=== PATIENT | female | born 1975 | race Caucasian/White ===

== ENCOUNTER 2021-10-28 13:09 | Observation (INO) | payer BC ==
[2021-10-28] MEDS ORDERED: SODIUM CHLORIDE 0.9% 500 ML 500 ML IV STA (13:29)
[2021-10-28] MEDS ORDERED: ASPIRIN 81 MG PO STA (13:29)
[2021-10-28] MEDS ORDERED: NITROGLYCERIN OINT 1 INCH/GM PACKET TOPICAL STA (13:30)
--- NOTE | 2021-10-28 13:38 | ED ---
General Adult HPI - General Chief complaint: Arrhythmia/Palpitations Stated complaint: racing heart Time Seen by Provider: 10/28/21 13:15 Source: patient, RN notes reviewed, old records reviewed Mode of arrival: ambulatory Limitations: no limitations - History of Present Illness Initial comments: This is a 46-year-old female who presents emergency Department with a past medical history significant for diabetes hypertension and a family history of heart disease. Patient states she's had chest pain over the last week anytime she seems to exert herself a comes on she states the pain radiates to her neck and her left arm. She becomes very short of breath. Patient states she's had this multiple times in the past and been seen at the hospital and had a stress test and was all normal but this week is been worsening continues to happen so she wanted to come to a different hospital to be evaluated. Patient denies any recent fever chills or cough per patient denies abdominal pain patient denies nausea vomiting diarrhea. Patient denies lightheadedness or dizziness. Patient also states she feels as though her heart was racing when this occurs. - Related Data Allergies Allergy/AdvReac Type Severity Reaction Status Date / Time No Known Allergies Allergy Verified 10/28/21 13:18 Review of Systems ROS Statement: Those systems with pertinent positive or pertinent negative responses have been documented in the HPI. ROS Other: All systems not noted in ROS Statement are negative. Past Medical History Past Medical History: Diabetes Mellitus, Hypertension Additional Past Medical History / Comment(s): RA History of Any Multi-Drug Resistant Organisms: None Reported Past Surgical History: No Surgical Hx Reported Past Psychological History: No Psychological Hx Reported Smoking Status: Never smoker Past Alcohol Use History: None Reported Past Drug Use History: None Reported General Exam - General Exam Comments Initial Comments: GENERAL: Patient is well-developed and well-nourished. Patient is nontoxic and well- hydrated and is in mild distress. ENT: Neck is soft and supple. No significant lymphadenopathy is noted. Oropharynx is clear. Moist mucous membranes. Neck has full range of motion without eliciting any pain. EYES: The sclera were anicteric and conjunctiva were pink and moist. Extraocular movements were intact and pupils were equal round and reactive to light. Eyelids were unremarkable. PULMONARY: Unlabored respirations. Good breath sounds bilaterally. No audible rales rhonchi or wheezing was noted. CARDIOVASCULAR: There is a regular rate and rhythm without any murmurs gallops or rubs. ABDOMEN: Soft and nontender with normal bowel sounds. SKIN: Skin is clear with no lesions or rashes and otherwise unremarkable. NEUROLOGIC: Patient is alert and oriented x3. Cranial nerves II through XII are grossly int act. Motor and sensory are also intact. Normal speech, volume and content. Symmetrical smile. MUSCULOSKELETAL: Normal extremities with adequate strength and full range of motion. LYMPHATICS: No significant lymphadenopathy is noted PSYCHIATRIC: Normal psychiatric evaluation. Limitations: no limitations Course Vital Signs 10/28/21 13:13 Temperature 98.4 F Pulse Rate 110 H Respiratory 20 Rate Blood Pressure 143/95 O2 Sat by Pulse 97 Oximetry Medical Decision Making - Medical Decision Making EKG shows sinus tachycardia at 102 bpm DE interval 152 QRS is 95 QT interval 390 QTC is 368. Patient's EKG shows no ST segment elevation or depression. Chest x-ray shows no acute abnormality. I spoke with some physician he agreed to admit the patient admitted the patient wrote admitting orders. - Lab Data Result diagrams: 10/28/21 13:49 10/28/21 13:49 Lab Results 10/28/21 10/28/21 10/28/21 Range/Units 13:49 13:49 13:49 WBC 7.2 (3.8-10.6) k/uL RBC 5.68 H (3.80-5.40) m/uL Hgb 17.1 H (11.4-16.0) gm/dL Hct 50.2 H (34.0-46.0) % MCV 88.4 (80.0-100.0) fL MCH 30.2 (25.0-35.0) pg MCHC 34.1 (31.0-37.0) g/dL RDW 12.1 (11.5-15.5) % Plt Count 303 (150-450) k/uL MPV 7.8 Neutrophils % 71 % Lymphocytes % 22 % Monocytes % 4 % Eosinophils % 1 % Basophils % 1 % Neutrophils # 5.1 (1.3-7.7) k/uL Lymphocytes # 1.6 (1.0-4.8) k/uL Monocytes # 0.3 (0-1.0) k/uL Eosinophils # 0.1 (0-0.7) k/uL Basophils # 0.1 (0-0.2) k/uL PT 10.0 (9.0-12.0) sec INR 0.9 (<1.2) APTT 23.9 (22.0-30.0) sec D-Dimer 0.26 (<0.60) mg/L FEU Sodium 139 (137-145) mmol/L Potassium 4.2 (3.5-5.1) mmol/L Chloride 103 (98-107) mmol/L Carbon Dioxide 23 (22-30) mmol/L Anion Gap 13 mmol/L BUN 18 H (7-17) mg/dL Creatinine 0.71 (0.52-1.04) mg/dL Est GFR (CKD-EPI)AfAm >90 (>60 ml/min/1.73 sqM) Est GFR (CKD-EPI)NonAf >90 (>60 ml/min/1.73 sqM) Glucose 235 H (74-99) mg/dL Calcium 10.0 (8.4-10.2) mg/dL Magnesium 1.8 (1.6-2.3) mg/dL Total Bilirubin 0.5 (0.2-1.3) mg/dL AST 30 (14-36) U/L ALT 46 H (4-34) U/L Alkaline Phosphatase 121 (38-126) U/L Troponin I (0.000-0.034) ng/mL Total Protein 8.1 (6.3-8.2) g/dL Albumin 4.8 (3.5-5.0) g/dL TSH 0.683 (0.465-4.680) mIU/L 10/28/21 Range/Units 13:49 WBC (3.8-10.6) k/uL RBC (3.80-5.40) m/uL Hgb (11.4-16.0) gm/dL Hct (34.0-46.0) % MCV (80.0-100.0) fL MCH (25.0-35.0) pg MCHC (31.0-37.0) g/dL RDW (11.5-15.5) % Plt Count (150-450) k/uL MPV Neutrophils % % Lymphocytes % % Monocytes % % Eosinophils % % Basophils % % Neutrophils # (1.3-7.7) k/uL Lymphocytes # (1.0-4.8) k/uL Monocytes # (0-1.0) k/uL Eosinophils # (0-0.7) k/uL Basophils # (0-0.2) k/uL PT (9.0-12.0) sec INR (<1.2) APTT (22.0-30.0) sec D-Dimer (<0.60) mg/L FEU Sodium (137-145) mmol/L Potassium (3.5-5.1) mmol/L Chloride (98-107) mmol/L Carbon Dioxide (22-30) mmol/L Anion Gap mmol/L BUN (7-17) mg/dL Creatinine (0.52-1.04) mg/dL Est GFR (CKD-EPI)AfAm (>60 ml/min/1.73 sqM) Est GFR (CKD-EPI)NonAf (>60 ml/min/1.73 sqM) Glucose (74-99) mg/dL Calcium (8.4-10.2) mg/dL Magnesium (1.6-2.3) mg/dL Total Bilirubin (0.2-1.3) mg/dL AST (14-36) U/L ALT (4-34) U/L Alkaline Phosphatase (38-126) U/L Troponin I <0.012 (0.000-0.034) ng/mL Total Protein (6.3-8.2) g/dL Albumin (3.5-5.0) g/dL TSH (0.465-4.680) mIU/L Disposition Clinical Impression: Chest pain, Palpitations Disposition: ADMITTED IP TO THIS [facility] Referrals: Nonstaff,Physician [Primary Care Provider] - 1-2 days Time of Disposition: 15:04
[2021-10-28 13:57] LABS: Basophils # (A) 0.1 k/uL (0-0.2); Basophils % (A) 1 %; Eosinophils # (A) 0.1 k/uL (0-0.7); Eosinophils % (A) 1 %; HCT 50.2 % (34.0-46.0); HGB 17.1 gm/dL (11.4-16.0); Lymphocytes # (A) 1.6 k/uL (1.0-4.8); Lymphocytes % (A) 22 %; MCH 30.2 pg (25.0-35.0); MCHC 34.1 g/dL (31.0-37.0); MCV 88.4 fL (80.0-100.0); Mean Platelet Volume 7.8; Monocytes # (A) 0.3 k/uL (0-1.0); Monocytes % (A) 4 %; Neutrophils # (A) 5.1 k/uL (1.3-7.7); Neutrophils % (A) 71 %; Platelet Count 303 k/uL (150-450); RBC 5.68 m/uL (3.80-5.40); RDW 12.1 % (11.5-15.5); WBC 7.2 k/uL (3.8-10.6)
[2021-10-28 14:07] LABS: Glucose 235 mg/dL (74-99)
--- NOTE | 2021-10-28 14:12 | XR ---
EXAMINATION TYPE: XR chest 2V DATE OF EXAM: 10/28/2021 COMPARISON: NONE HISTORY: Chest pain TECHNIQUE: FINDINGS: Heart and mediastinum are normal. Lungs are clear. Diaphragm is normal. Bony thorax is inta ct. IMPRESSION: Normal chest.
[2021-10-28 14:19] LABS: INR 0.9 (<1.2); Partial Thromboplastin Time 23.9 sec (22.0-30.0)
[2021-10-28 14:48] LABS: ALT 46 U/L (4-34); AST 30 U/L (14-36); African American GFR (CKD) >90 (>60 ml/min/1.73 sqM); Albumin 4.8 g/dL (3.5-5.0); Alkaline Phosphatase 121 U/L (38-126); Anion Gap 13 mmol/L; Blood Urea Nitrogen 18 mg/dL (7-17); Carbon Dioxide 23 mmol/L (22-30); Chloride 103 mmol/L (98-107); Magnesium 1.8 mg/dL (1.6-2.3); Non-African American GFR(CKD) >90 (>60 ml/min/1.73 sqM); Potassium 4.2 mmol/L (3.5-5.1); Sodium 139 mmol/L (137-145); Total Bilirubin 0.5 mg/dL (0.2-1.3); Total Protein 8.1 g/dL (6.3-8.2)
[2021-10-28] MEDS ORDERED: NITROGLYCERIN SL TABS 0.4 MG TAB SUBLINGUAL PRN (15:05)
[2021-10-28] MEDS ORDERED: LORazepam 1 MG TAB PO STA (15:20)
--- NOTE | 2021-10-28 16:24 | P.HPIM ---
History of Present Illness H&P Date: 10/28/21 Chief Complaint: Racing heart 46-year-old female with history of hypertension, type 2 diabetes, obesity who presented to the hospital with complaints of racing heart and chest pressure. The patient was worked up extensively at different hospitals for chest pressure and pain also for tachycardia. At one time she was told that she has carditis but no specific treatment was given to her. She was also told to follow-up with cardiology as an outpatient but she has not had the chest to do that. Today she presents to the ER with complaints of racing heart and chest pressure that radiates to her jaw. She had denied any dizziness or fainting syncopes. She stated that her episodes last for several days at a time and it comes and goes. She had denied any nausea or vomiting today. In the ED, initial workup was grossly unremarkable. Her labs were unremarkable. Her EKG showed sinus tachycardia with possible arterial enlargement. Her TSH was normal. Infection workup was normal. Her blood pressure was slightly elevated. She is afebrile. She'll be admitted to the hospital on the observation unit for cardiology consultation. And for telemetry Past Medical History Past Medical History: Diabetes Mellitus, Hypertension Additional Past Medical History / Comment(s): RA History of Any Multi-Drug Resistant Organisms: None Reported Past Surgical History: No Surgical Hx Reported Past Psychological History: No Psychological Hx Reported Smoking Status: Never smoker Past Alcohol Use History: None Reported Past Drug Use History: None Reported Medications and Allergies Home Medications Medication Instructions Recorded Confirmed Type Aspirin/Acetaminophen/Caffeine 2 tab PO Q12H PRN 10/28/21 10/28/21 History [Excedrin Extra Strength Caplet] DULoxetine HCL [Cymbalta] 20 mg PO DAILY 10/28/21 10/28/21 History Dulaglutide [Trulicity] 1.5 mg SQ HARP 10/28/21 10/28/21 History Losartan [Cozaar] 50 mg PO BID 10/28/21 10/28/21 History Metformin Hcl 750mg 750 mg PO DAILY 10/28/21 10/28/21 History hydroCHLOROthiazide [Hydrodiuril] 50 mg PO DAILY 10/28/21 10/28/21 History Allergies Allergy/AdvReac Type Severity Reaction Status Date / Time No Known Allergies Allergy Verified 10/28/21 15:53 Physical Exam Vitals: Vital Signs Temp Pulse Resp BP Pulse Ox 10/28/21 15:31 81 16 134/94 97 10/28/21 13:13 98.4 F 110 H 20 143/95 97 Intake and Output 10/28/21 10/28/21 10/28/21 06:59 14:59 22:59 Other: Weight 90.265 kg General: Alert and oriented 4 not in distress Neck: Supple no JVD no lymphadenopathy Heart: Tachycardic regular rhythm. Lungs: Bilaterally clear to auscultation. No crackles or wheezing Abdomen: Soft, nondistended nontender positive bowel sounds in 4 quadrants. Skin: Warm and dry. Results CBC & Chem 7: 10/28/21 13:49 10/28/21 13:49 Labs: Abnormal Lab Results - Last 24 Hours (Table) 10/28/21 10/28/21 Range/Units 13:49 13:49 RBC 5.68 H (3.80-5.40) m/uL Hgb 17.1 H (11.4-16.0) gm/dL Hct 50.2 H (34.0-46.0) % BUN 18 H (7-17) mg/dL Glucose 235 H (74-99) mg/dL ALT 46 H (4-34) U/L Assessment and Plan Plan: 46-year-old female with hypertension and diabetes presented to the hospital with chest discomfort and tachycardia. Palpitations, feeling of racing heart, chest pressure. Patient has episodes of tachycardia. EKG revealed sinus tachycardia. unknown where was the last echocardiogram. Cardiology consultationappreciate recommendations Continue awake overnight monitor TSH is normal. We will order echocardiogram Awaiting further cardiology recommendations. The patient is not on rate control agents. She may need an electrophysiology consult eventually. The cause of her arrhythmia is still under workup. Could be also related to anxiety. Type 2 diabetes Hold home blood sugar medications. Started on sliding scale Hypertension Continue losartan Continue hydrochlorothiazide Depression, side continue Cymbalta DVT prophylaxis: Compression device Disposition: Pending cardiology recommendations
[2021-10-28] MEDS ORDERED: NITROGLYCERIN OINT 1 INCH/GM PACKET TOPICAL SCH (18:00)
[2021-10-28 20:07] LABS: Glucose,Whole Blood 162 mg/dL (70-110)
[2021-10-28 20:31] LABS: Amphetamine Screen,Urine Not Detected (NotDetected); Barbiturate Screen,Urine Not Detected (NotDetected); Benzodiazepines Screen,Urine Detected (NotDetected); Cocaine Screen,Urine Not Detected (NotDetected); Methadone Screen, Urine Not Detected (NotDetected); Opiate Screen,Urine Not Detected (NotDetected); Oxycodone Screen, Urine Not Detected (NotDetected); Phencyclidine Screen,Urine Not Detected (NotDetected); Tricyclic Antidepressant,Urine Not Detected (NotDetected); Urn Cannabinoid Scrn Not Detected (NotDetected)
[2021-10-28] MEDS: LOSARTAN 50 MG TAB PO SCH (20:34)
[2021-10-28] MEDS: INSULIN ASPART (NovoLOG) 100 UNIT/ML VIAL SQ SCH (20:34)
[2021-10-29 07:36] LABS: Glucose,Whole Blood 177 mg/dL (70-110)
[2021-10-29] MEDS: INSULIN ASPART (NovoLOG) 100 UNIT/ML VIAL SQ SCH ×4 (08:11→21:04)
[2021-10-29] MEDS: DULoxetine HCL 20 MG CAPSULE.DR PO SCH (08:14)
[2021-10-29] MEDS ORDERED: ASPIRIN 325 MG TAB PO SCH (09:00)
--- NOTE | 2021-10-29 09:00 | P.CRDCN ---
History of Present Illness Consult date: 10/29/21 Chief complaint: Chest pain History of present illness: The patient is a pleasant 46-year-old female patient with a past medical history significant for diabetes and hypertension and overweight was transferred from another facility for further evaluation of chest discomfort. For the last several weeks she has been experiencing intermittent episodes of chest discomfort/heart racing. She had heart time differentiating between both. She stated that the symptoms are mostly exertional but sometimes are resting. No increase in the intensity or frequency over the last few weeks. She presented yesterday into different facility where she underwent a workup and she was transferred here for further evaluation. She underwent an EKG which showed sinus rhythm without any significant ST or T-wave abnormalities and also she underwent 3 sets of cardiac enzymes came in to be unremarkable. The chest x-ray also did not show any acute abnormalities. She remains asymptomatic in terms of chest discomfort at this point. At this point I advised the patient to undergo a stress test and echocardiogram to be done while she is in the hospital. Also if she developed any more episode of chest discomfort before tomorrow I would advise proceeding with coronary angiogram for definitive diagnosis. The plan was discussed with the patient in details with full understanding and agreement. Past Medical History Past Medical History: Diabetes Mellitus, Hypertension Additional Past Medical History / Comment(s): RA History of Any Multi-Drug Resistant Organisms: None Reported Past Surgical History: No Surgical Hx Reported Past Psychological History: No Psychological Hx Reported Smoking Status: Never smoker Past Alcohol Use History: None Reported Past Drug Use History: None Reported Medications and Allergies Home Medications Medication Instructions Recorded Confirmed Type Aspirin/Acetaminophen/Caffeine 2 tab PO Q12H PRN 10/28/21 10/28/21 History [Excedrin Extra Strength Caplet] DULoxetine HCL [Cymbalta] 20 mg PO DAILY 10/28/21 10/28/21 History Dulaglutide [Trulicity] 1.5 mg SQ HARP 10/28/21 10/28/21 History Losartan [Cozaar] 50 mg PO BID 10/28/21 10/28/21 History Metformin Hcl 750mg 750 mg PO DAILY 10/28/21 10/28/21 History hydroCHLOROthiazide [Hydrodiuril] 50 mg PO DAILY 10/28/21 10/28/21 History Allergies Allergy/AdvReac Type Severity Reaction Status Date / Time No Known Allergies Allergy Verified 10/28/21 15:53 Physical Exam Vitals: Vital Signs Temp Pulse Pulse Resp BP BP Pulse Ox 10/29/21 08:03 95 10/29/21 07:00 98.4 F 87 18 106/68 95 10/29/21 03:00 98.4 F 80 17 99/59 97 10/28/21 19:30 98.5 F 117 H 17 111/76 10/28/21 18:35 98 16 138/95 99 10/28/21 18:12 100 16 118/90 95 10/28/21 15:31 81 16 134/94 97 10/28/21 13:13 98.4 F 110 H 20 143/95 97 Intake and Output 10/28/21 10/29/21 10/29/21 22:59 06:59 14:59 Other: Voiding Method Toilet Toilet # Voids 0 2 Weight 90.265 kg - Constitutional General appearance: no acute distress - Respiratory Respiratory: bilateral: CTA - Cardiovascular Rhythm: regular Heart sounds: normal: S1, S2 Abnormal Heart Sounds: systolic murmur Results 10/28/21 13:49 10/28/21 13:49 Cardiac Enzymes 10/28/21 10/28/21 10/28/21 Range/Units 13:49 13:49 15:30 AST 30 (14-36) U/L Troponin I <0.012 <0.012 (0.000-0.034) ng/mL 10/28/21 Range/Units 21:51 AST (14-36) U/L Troponin I <0.012 (0.000-0.034) ng/mL Coagulation 10/28/21 Range/Units 13:49 PT 10.0 (9.0-12.0) sec APTT 23.9 (22.0-30.0) sec CBC 10/28/21 Range/Units 13:49 WBC 7.2 (3.8-10.6) k/uL RBC 5.68 H (3.80-5.40) m/uL Hgb 17.1 H (11.4-16.0) gm/dL Hct 50.2 H (34.0-46.0) % Plt Count 303 (150-450) k/uL Comprehensive Metabolic Panel 10/28/21 Range/Units 13:49 Sodium 139 (137-145) mmol/L Potassium 4.2 (3.5-5.1) mmol/L Chloride 103 (98-107) mmol/L Carbon Dioxide 23 (22-30) mmol/L BUN 18 H (7-17) mg/dL Creatinine 0.71 (0.52-1.04) mg/dL Glucose 235 H (74-99) mg/dL Calcium 10.0 (8.4-10.2) mg/dL AST 30 (14-36) U/L ALT 46 H (4-34) U/L Alkaline Phosphatase 121 (38-126) U/L Total Protein 8.1 (6.3-8.2) g/dL Albumin 4.8 (3.5-5.0) g/dL Current Medications Generic Name Dose Route Start Last Admin Trade Name Freq PRN Reason Stop Dose Admin Aspirin 325 mg 10/29/21 09:00 10/29/21 08:14 Aspirin 325 Mg Tab PO 325 mg DAILY VARSHA Administration Duloxetine HCl 20 mg 10/29/21 09:00 10/29/21 08:14 Duloxetine Hcl 20 Mg Capsule.Dr PO 20 mg DAILY VARSHA Administration Hydrochlorothiazide 50 mg 10/29/21 09:00 10/29/21 08:14 Hydrochlorothiazide 50 Mg Tab PO 50 mg DAILY VARSHA Administration Insulin Aspart 0 unit 10/28/21 21:00 10/29/21 08:11 Insulin Aspart (Novolog) 100 Unit/Ml Vial SQ Not Given ACHS [facility] Protocol Losartan Potassium 50 mg 10/28/21 21:00 10/28/21 20:34 Losartan 50 Mg Tab PO 50 mg BID VARSHA Administration Nitroglycerin 0.4 mg 10/28/21 15:05 Nitroglycerin Sl Tabs 0.4 Mg Tab SUBLINGUAL Q5M PRN Chest Pain Intake and Output 10/28/21 10/29/21 10/29/21 22:59 06:59 14:59 Other: Voiding Method Toilet Toilet # Voids 0 2 Weight 90.265 kg 10/28/21 13:49 10/28/21 13:49 Assessment and Plan Assessment: Assessment #1 intermittent episodes of chest discomfort seems to be typical and atypical for angina #2 intermittent episodes of heart racing/fluttering #3 diabetes #4 overweight #5 hypertension Plan #1 acute coronary event was ruled out #2 the rest of blood work came in to be unremarkable #3 proceed with a stress test in the next 24 hours #4 obtain an echocardiogram was Doppler #5 further recommendation to follow that the stress test and echocardiogram
[2021-10-29 09:51] LABS: Chol/HDL Ratio 6.12 Ratio; LDL Cholesterol,Calculated 142.1 mg/dL (0.0-131.0)
[2021-10-29 12:07] LABS: Glucose,Whole Blood 217 mg/dL (70-110)
--- NOTE | 2021-10-29 13:05 | P.PN ---
Subjective Progress Note Date: 10/29/21 Principal diagnosis: Chest pain The patient was seen and examined. No evidence overnight. Chest pain comes and goes. Palpitation comes and goes. Heart rate fluctuating. No dizziness. No syncopal episodes. Objective - Vital Signs Vital signs: Vital Signs Temp 98.4 F 10/29/21 07:00 Pulse 87 10/29/21 07:00 Resp 18 10/29/21 07:00 BP 106/68 10/29/21 07:00 Pulse Ox 95 10/29/21 08:03 FiO2 Intake & Output 10/28/21 10/29/21 10/29/21 18:59 06:59 18:59 Weight 90.265 kg 90.265 kg Other: Voiding Method Toilet # Voids 2 - Exam General: [non toxic], [no distress], [appears at stated age], [normal weight] Derm: [no unusual rashes/lesions] [no unusual ecchymoses], [warm], [dry] Head: [atraumatic], [normocephalic], [symmetric] Eyes: [EOMI], [no lid lag], [anicteric sclera], [pupils equal round reactive to light] Neck: [No thyromegaly], [no cervical lymphadenopathy], [trachea midline], [supple] Cardiovascular: [S1S2 reg], [no murmur], [positive posterior tibial pulse bilateral], [no edema], [capillary refill less than 2 seconds] Lungs: [CTA bilateral], [no rhonchi, no rales] , [no accessory muscle use] Abdominal: [soft], [ nontender to palpation], [no guarding], [no appreciable organomegaly], [normal bowel sounds] - Labs CBC & Chem 7: 10/28/21 13:49 10/28/21 13:49 Labs: Abnormal Lab Results - Last 24 Hours (Table) 10/28/21 10/28/21 10/28/21 Range/Units 13:49 13:49 18:24 RBC 5.68 H (3.80-5.40) m/uL Hgb 17.1 H (11.4-16.0) gm/dL Hct 50.2 H (34.0-46.0) % BUN 18 H (7-17) mg/dL Glucose 235 H (74-99) mg/dL POC Glucose (mg/dL) (70-110) mg/dL ALT 46 H (4-34) U/L Cholesterol (0.00-200.00) mg/dL LDL Cholesterol, Calc (0.0-131.0) mg/dL HDL Cholesterol (40.00-60.00) mg/dL U Benzodiazepines Scrn Detected H (NotDetected) 10/28/21 10/29/21 10/29/21 Range/Units 20:05 05:13 07:34 RBC (3.80-5.40) m/uL Hgb (11.4-16.0) gm/dL Hct (34.0-46.0) % BUN (7-17) mg/dL Glucose (74-99) mg/dL POC Glucose (mg/dL) 162 H 177 H (70-110) mg/dL ALT (4-34) U/L Cholesterol 205.00 H (0.00-200.00) mg/dL LDL Cholesterol, Calc 142.1 H (0.0-131.0) mg/dL HDL Cholesterol 33.50 L (40.00-60.00) mg/dL U Benzodiazepines Scrn (NotDetected) 10/29/21 Range/Units 12:05 RBC (3.80-5.40) m/uL Hgb (11.4-16.0) gm/dL Hct (34.0-46.0) % BUN (7-17) mg/dL Glucose (74-99) mg/dL POC Glucose (mg/dL) 217 H (70-110) mg/dL ALT (4-34) U/L Cholesterol (0.00-200.00) mg/dL LDL Cholesterol, Calc (0.0-131.0) mg/dL HDL Cholesterol (40.00-60.00) mg/dL U Benzodiazepines Scrn (NotDetected) Assessment and Plan Assessment: Assessment and plan: Episodes of tachyarrhythmia. Evidence of sinus tachycardia with atrial enlargement on EKG. brim and crown presser showed fluctuation of heart rate. Mostly sinus tachycardia. Thyroid hormone normal. Seen and evaluated by cardiology service. Recommended stress testing. Echocardiogram pending. Further recommendations after stress test. Hold off on AV blocking agents at this time. Chest pain. Likely related to palpitations and tachycardia as above. Pending workup as in #1. Hypertension, Continue home hydrochlorothiazide. Continue home losartan. Blood pressure is controlled. Depression, continued Cymbalta Disposition: Pending stress testing and echocardiogram
[2021-10-29] MEDS: LOSARTAN 50 MG TAB PO SCH ×2 (14:52→21:03)
[2021-10-29 17:11] LABS: Glucose,Whole Blood 285 mg/dL (70-110)
[2021-10-29 20:31] LABS: Glucose,Whole Blood 151 mg/dL (70-110)
[2021-10-30 06:58] LABS: Glucose,Whole Blood 190 mg/dL (70-110)
[2021-10-30] MEDS ORDERED: ATORVASTATIN 80 MG TAB PO STA (08:18)
[2021-10-30] MEDS ORDERED: ASPIRIN 325 MG TAB PO STA (08:18)
[2021-10-30] MEDS ORDERED: ALPRAZolam 0.5 MG TAB PO PRN (08:18)
[2021-10-30] MEDS ORDERED: ALPRAZolam 0.25 MG TAB PO PRN (08:18)
[2021-10-30] MEDS: INSULIN ASPART (NovoLOG) 100 UNIT/ML VIAL SQ SCH ×4 (08:26→21:04)
[2021-10-30] MEDS: DULoxetine HCL 20 MG CAPSULE.DR PO SCH (08:40)
[2021-10-30] MEDS: LOSARTAN 50 MG TAB PO SCH ×2 (08:40→21:04)
[2021-10-30] MEDS: SODIUM CHLORIDE 0.9% 1,000 ML in EMPTY BAG 1 BAG IV SCH ×2 (08:41→21:03)
[2021-10-30] MEDS ORDERED: ASPIRIN 325 MG TAB PO SCH (09:00)
--- NOTE | 2021-10-30 09:02 | P.PN ---
Subjective The patient is a pleasant 46-year-old female patient with a past medical history significant for diabetes and hypertension and overweight was transferred from another facility for further evaluation of chest discomfort. For the last several weeks she has been experiencing intermittent episodes of chest discomfort/heart racing. She had heart time differentiating between both. She stated that the symptoms are mostly exertional but sometimes are resting. She underwent an EKG which showed sinus rhythm without any significant ST or T-wave abnormalities and also she underwent 3 sets of cardiac enzymes came in to be unremarkable. The chest x-ray also did not show any acute abnormalities. Patient seen and examined at bedside, she continues to have intermittent chest discomfort with activity and at rest. Overnight patient states that she woke up with chest tightness. Her vital signs are stable. No significant changes in patient's EKG. Meds: Aspirin 81 mg daily, atorvastatin 80 mg, hydrochlorothiazide 50 mg daily, losartan 50 mg twice a day GENERAL: Well-appearing, well-nourished and in no acute distress. NECK: Supple without JVD or thyromegaly. LUNGS: Breath sounds clear to auscultation bilaterally. Respiration equal and unlabored. No wheezes, rales or rhonchi. HEART: Regular rate and rhythm without murmurs, rubs or gallops. S1 and S2 heard. EXTREMITIES: Normal range of motion, no edema. No clubbing or cyanosis. Periphe ral pulses intact. ASSESSMENT Chest discomfort seems to be typical and atypical for angina, continues to have chest discomfort this morning concerning Intermittent palpitations Type 2 Diabetes Hypertension PLAN Recommend cardiac catheterization for definitive diagnosis. I have discussed the risks, benefits and alternative therapies for the above- mentioned procedure and for both sedation/analgesia as well as necessary blood product administration, if indicated, as they pertain to this patient. The patient has indicated understanding and acceptance of the risks and procedures discussed. Questions have been answered appropriately and she is agreeable to move forward with the above-stated procedure. Plan for cardiac cath with Dr. Seo today. Further recommendations to follow Nurse Practitioner note has been reviewed, I agree with a documented findings and plan of care. Patient was seen and examined. Objective - Vital Signs Vital signs: Vital Signs Temp 97.7 F 10/30/21 07:00 Pulse 76 10/30/21 07:00 Resp 16 10/30/21 07:00 BP 116/67 10/30/21 07:00 Pulse Ox 97 10/30/21 07:00 FiO2 Intake & Output 10/29/21 10/30/21 10/30/21 18:59 06:59 18:59 Output Total 1 Balance -1 Output: Urine 1 Other: Voiding Method Toilet # Voids 2 - Labs CBC & Chem 7: 10/28/21 13:49 10/28/21 13:49 Labs: Abnormal Lab Results - Last 24 Hours (Table) 10/29/21 10/29/21 10/29/21 Range/Units 05:13 12:05 17:10 POC Glucose (mg/dL) 217 H 285 H (70-110) mg/dL Cholesterol 205.00 H (0.00-200.00) mg/dL LDL Cholesterol, Calc 142.1 H (0.0-131.0) mg/dL HDL Cholesterol 33.50 L (40.00-60.00) mg/dL 10/29/21 10/30/21 Range/Units 20:30 06:56 POC Glucose (mg/dL) 151 H 190 H (70-110) mg/dL Cholesterol (0.00-200.00) mg/dL LDL Cholesterol, Calc (0.0-131.0) mg/dL HDL Cholesterol (40.00-60.00) mg/dL
[2021-10-30 11:44] LABS: Glucose,Whole Blood 197 mg/dL (70-110)
--- NOTE | 2021-10-30 11:56 | CA ---
Transthoracic Echo Report Name: Daphney Rico Age: 46 Gender: F : 1975 Exam Date: 10/30/2021 07:34 Exam Location: [facility] Ht (in): 64 Wt (lb): 199 Ordering Physician: Bernardo Palacios MD Attending/Referring Phys: Trial Judge Abigail García RDCS Procedure CPT: Indications: palpitations Cardiac Hx: Technical Quality: Fair Contrast 1: Total Dose (mL): Contrast 2: Total Dose (mL): MEASUREMENTS (Male / Female) Normal Values 2D ECHO LV Diastolic Diameter PLAX 3.7 cm 4.2 - 5.9 / 3.9 - 5.3 cm LV Systolic Diameter PLAX 2.6 cm IVS Diastolic Thickness 1.4 cm 0.6 - 1.0 / 0.6 - 0.9 cm LVPW Diastolic Thickness 1.3 cm 0.6 - 1.0 / 0.6 - 0.9 cm LV Relative Wall Thickness 0.7 RV Internal Dim ED PLAX 2.8 cm LA Systolic Diameter LX 3.1 cm 3.0 - 4.0 / 2.7 - 3.8 cm LA Volume 25.9 cm??? 18 - 58 / 22 - 52 cm??? M-MODE Aortic Root Diameter MM 2.7 cm MV E Point Septal Separation 0.3 cm AV Cusp Separation MM 2.2 cm DOPPLER AV Peak Velocity 205.3 cm/s AV Peak Gradient 16.9 mmHg AV Mean Velocity 150.0 cm/s AV Mean Gradient 9.8 mmHg AV Velocity Time Integral 31.5 cm LVOT Peak Velocity 144.4 cm/s LVOT Peak Gradient 8.3 mmHg MV Area PHT 2.0 cm??? Mitral E Point Velocity 70.2 cm/s Mitral A Point Velocity 64.2 cm/s Mitral E to A Ratio 1.1 MV Deceleration Time 374.2 ms MV E' Velocity 6.6 cm/s Mitral E to MV E' Ratio 10.6 TR Peak Velocity 211.5 cm/s TR Peak Gradient 17.9 mmHg Right Ventricular Systolic Press 22.0 mmHg FINDINGS Left Ventricle Left ventricular ejection fraction is estimated at 60-65 %. Left ventricular cavity size normal. Moderate concentric left ventricular hypertrophy. Right Ventricle Normal right ventricular size and function. Right ventricular systolic pressure within normal limits. Right Atrium Normal right atrial size. Left Atrium Normal left atrial size. No evidence for an atrial septal defect. Mitral Valve Structurally normal mitral valve. No mitral stenosis, regurgitation or prolapse. Aortic Valve Trileaflet aortic valve. No aortic valve stenosis or regurgitation. LVOT obstruction with mean gradient of 10 mmhg Tricuspid Valve Mild tricuspid regurgitation. Pulmonic Valve Trace pulmonic regurgitation. Pericardium Normal pericardium. No pericardial effusion. Aorta Normal size aortic root and proximal ascending aorta. CONCLUSIONS Normal LV systolic function with concentric left ventricular hypertrophy Mild tricuspid regurgitation Previewed by: Dr. Phuc Bailey MD (Electronically Signed) Final Date: 30 October 2021 11:55
[2021-10-30] MEDS ORDERED: VERAPAMIL 2.5 MG/ML 2 ML AMP ONE (12:43)
[2021-10-30] MEDS ORDERED: HEPARIN SODIUM 1,000 UN/ML (10ML VL) ONE (12:43)
[2021-10-30] MEDS ORDERED: MIDAZOLAM 2 MG/2 ML VIAL IV ONE ×2 (12:50→13:14)
[2021-10-30] MEDS ORDERED: LIDOCAINE 1% INJ 10MG/ML (5 ML VIAL-PF) SQ ONE (12:53)
[2021-10-30] MEDS ORDERED: VERAPAMIL SYRINGE (5 MG/10 ML) INTRAARTER ONE (12:54)
[2021-10-30] MEDS: HEPARIN SODIUM 1,000 UN/ML (10ML VL) IV ONE ×2 (12:58→13:07)
[2021-10-30] MEDS ORDERED: HYDROmorphone 1 MG/ML 1 ML SYRINGE ONE (12:58)
[2021-10-30] MEDS ORDERED: IV FLUID CONTINUATION 750 ML IV ONE (13:00)
[2021-10-30] MEDS ORDERED: HYDROmorphone 1 MG/ML 1 ML SYRINGE IVP ONE (13:00)
[2021-10-30] MEDS ORDERED: PRASUGREL 10 MG TAB ONE ×2 (13:08)
[2021-10-30] MEDS ORDERED: PRASUGREL 10 MG TAB PO ONE (13:10)
[2021-10-30] MEDS ORDERED: niCARdipine 25 MG/10 ML VIAL ONE (13:19)
[2021-10-30] MEDS ORDERED: NITROGLYCERIN 1000MCG/10ML SYRINGE INTRACORON ONE (13:20)
[2021-10-30] MEDS ORDERED: PHENYLEPHRINE-0.9% NACL SYG 1,000 MCG/10 ML SYRINGE IV ONE (13:23)
[2021-10-30] MEDS ORDERED: niCARdipine Syringe (1,000 mcg/10 mL) INTRACORON ONE (13:25)
[2021-10-30] MEDS ORDERED: IOPAMIDOL-370 125ML BTL INJ ONE (13:29)
[2021-10-30] MEDS ORDERED: ATROPINE SULFATE 0.1 MG/ML 10ML SYRINGE IV PRN (13:36)
[2021-10-30] MEDS ORDERED: ZOLPIDEM 5 MG TAB PO PRN (13:36)
[2021-10-30] MEDS ORDERED: RX INFO: IV CONTRAST WAS GIVEN 1 EACH MISC MISCELLANE PRN (13:36)
[2021-10-30] MEDS ORDERED: MAG HYDROX/AL HYDROX/SIMETH 30 ML CUP PO PRN (13:36)
[2021-10-30 14:12] VITALS: BMI 34.1
[2021-10-30 16:21] LABS: Glucose,Whole Blood 302 mg/dL (70-110)
--- NOTE | 2021-10-30 16:21 | P.PN ---
Subjective Progress Note Date: 10/30/21 Principal diagnosis: Chest pain follow-up The patient was seen and examined today. The patient status post left heart cath with RCA stent placement. The patient already feeling better today. She had denied chest pain to me today. She stated that her palpitation has improved. Her right hand the site of radial access for left heart cath is warm. She is having right thumb numbness but she stated that it's getting better. Objective - Vital Signs Vital signs: Vital Signs Temp 98.3 F 10/30/21 13:22 Pulse 69 10/30/21 13:22 Resp 14 10/30/21 13:22 BP 121/81 10/30/21 13:22 Pulse Ox 96 10/30/21 13:22 FiO2 Intake & Output 10/29/21 10/30/21 10/30/21 18:59 06:59 18:59 Intake Total 368 Output Total 1 Balance -1 368 Weight 90.265 kg Intake: IV 250 Oral 118 Output: Urine 1 Other: Voiding Method Toilet # Voids 2 3 - Exam Gen.: The patient is alert and oriented 3. Extremities: Right radial access. No evidence of ischemic limb. Sensation is intact. Hand is warm. Neck is supple. No jugular venous heart, sinus rhythm. No murmurs Abdomen: Soft. Nondistended. Nontender. - Labs CBC & Chem 7: 10/28/21 13:49 10/28/21 13:49 Labs: Abnormal Lab Results - Last 24 Hours (Table) 10/29/21 10/29/21 10/30/21 Range/Units 17:10 20:30 06:56 POC Glucose (mg/dL) 285 H 151 H 190 H (70-110) mg/dL 10/30/21 Range/Units 11:41 POC Glucose (mg/dL) 197 H (70-110) mg/dL Assessment and Plan Plan: 46-year-old female with hypertension and diabetes presented to the hospital with chest discomfort and tachycardia. Chest pain Arrhythmia Status post left heart catheterization 10/30/2021 with finding of 99% RCA stenosis. Nursing staff. Status post stent placement. Currently on Effient. Need to be on aspirin 2 mg daily as well as statins. We will add Lipitor high intensity given high LDL and current underlying coronary artery disease as ab ove. Type 2 diabetes Hold home blood sugar medications. Started on sliding scale Hypertension Continue losartan Continue hydrochlorothiazide Depression, side continue Cymbalta DVT prophylaxis: Compression device Disposition: The patient is stable by tomorrow she can be discharged.
[2021-10-30 19:07] LABS: Glucose,Whole Blood 256 mg/dL (70-110)
--- NOTE | 2021-10-30 19:08 | P.PCN ---
Date of Procedure: 10/27/21 Operative Findings: CARDIAC CATHETERIZATION AND PERCUTANEOUS CORONARY INTERVENTION PERFORMING PHYSICIAN: Arthur Seo MD, VI PROCEDURE PERFORMED: 1. Selective right and left coronary angiogram 2. Successful stenting of Distal RCA using 3.5 x 18 mm Xience ELPIDIO which was postdilated using 4 mm noncompliant balloon with an excellent angiographic results INDICATION: This is a pleasant 46-year-old female patient with diabetes and hypertension and dyslipidemia presented to the hospital with a chest discomfort concerning for angina. She was ruled out for acute coronary event. She initially scheduled to undergo a stress test but because she continues to have ongoing chest discomfort the stress test was canceled and the patient was brought to undergo a heart catheterization COMPLICATION: None APPROACH: Right radial artery LEVEL OF SEDATION: Moderate with the sedation time off 30 minutes PROCEDURE DESCRIPTION: After obtaining an informed consent the patient was brought to the cardiac component lab tech. The right radial artery was cannulated using micropuncture technique, the micropuncture wire passed easily then I placed a 6-Wolof sheath. I gave the patient 2 mg of verapamil intra-arterial and initially 5000 use of heparin intravenous. Subsequently additional 5000 as of heparin given during the intervention with continuous ACT monitoring. Subsequently the selective right and left coronary angiogram using JR4 and JL 3.5 catheters. Left heart catheterization was not performed. Subsequently I did intervene on the RCA. Please see his separate paragraph for that. The procedure was completed without any complications SELECTIVE CORONARY ANGIOGRAM: The right coronary artery: Is a large caliber vessel and a dominant vessel. The proximal RCA has mild disease only. The mid RCA has mild disease only as well. The RCA distally just before the bifurcation into PDA and PLV branches has a critical lesion appeared to be eccentric in the range of 80-90%. The PDA branch of the RCA appeared to be angiographically normal. The PLV branch has lesion appeared to be in the range of 60-70%. Left main: Is angiographically normal. Bifurcates into an LCx and LAD The left circumflex: Large caliber vessel nondominant vessel. The LCx overall appeared to have mild disease only. Gives rise to first and second obtuse marginal branches both appeared to have mild disease only. The left anterior descending artery: Large caliber vessel. The LAD is free from any high-grade stenosis. In the midportion has mild disease only. The LAD reaches the apex. PCI OF THE RCA: Anticoagulation was initiated using heparin with continuous ACT monitoring. Subsequently I did engage the RCA using JR4 guiding catheter. It was wired using a run throgh wire. Subsequently I did predilatation using 3.5 x 12 mm prolong before I deployed a 3.5 x 18 mm stent where the stent was positioned under fluoroscopy guidance and deployed under fluoroscopy guidance with the dist al edge of the stent just before the bifurcation into PDA and PLV branches. The stent was post dilated using 4 mm noncompliant balloon. The procedure was completed without any complication CONCLUSION: 1. Critical disease involving the distal RCA. Intermediate to severe disease involving the PLV branch of the RCA 2. Successful stenting of the distal RCA with an excellent angiographic results as described above POSTPROCEDURE MANAGEMENT: #1 dual antiplatelet therapy with aspirin and Effient for at least 6 month #2 aggressive cholesterol control #3 follow-up with the patient
[2021-10-30 20:38] LABS: Glucose,Whole Blood 223 mg/dL (70-110)
[2021-10-30] MEDS ORDERED: ATORVASTATIN 80 MG TAB PO SCH (21:00)
[2021-10-30] MEDS ORDERED: METOPROLOL TARTRATE 25 MG TAB PO SCH (21:00)
[2021-10-31 02:35] VITALS: RESP 15
[2021-10-31 06:21] LABS: Basophils % (A) 1 %; Eosinophils # (A) 0.1 k/uL (0-0.7); Eosinophils % (A) 1 %; HCT 46.9 % (34.0-46.0); HGB 15.7 gm/dL (11.4-16.0); Lymphocytes # (A) 1.9 k/uL (1.0-4.8); Lymphocytes % (A) 29 %; MCH 29.1 pg (25.0-35.0); MCHC 33.4 g/dL (31.0-37.0); MCV 87.1 fL (80.0-100.0); Mean Platelet Volume 7.6; Monocytes # (A) 0.3 k/uL (0-1.0); Monocytes % (A) 5 %; Neutrophils # (A) 4.2 k/uL (1.3-7.7); Neutrophils % (A) 63 %; Platelet Count 270 k/uL (150-450); RBC 5.39 m/uL (3.80-5.40); RDW 11.5 % (11.5-15.5); WBC 6.7 k/uL (3.8-10.6)
[2021-10-31 06:37] LABS: African American GFR (CKD) >90 (>60 ml/min/1.73 sqM); Anion Gap 8 mmol/L; Blood Urea Nitrogen 19 mg/dL (7-17); Calcium 9.3 mg/dL (8.4-10.2); Carbon Dioxide 25 mmol/L (22-30); Chloride 102 mmol/L (98-107); Glucose 140 mg/dL (74-99); Non-African American GFR(CKD) >90 (>60 ml/min/1.73 sqM); Potassium 3.3 mmol/L (3.5-5.1); Sodium 135 mmol/L (137-145)
[2021-10-31] MEDS ORDERED: HEPARIN SODIUM,PORCINE 2,500 UNIT in SODIUM CHLORIDE 0.9% 250 ML IRRIGATION PRN (07:00)
[2021-10-31] MEDS ORDERED: HEPARIN SODIUM,PORCINE 10,000 UNIT in SODIUM CHLORIDE 0.9% 1,000 ML IRRIGATION PRN (07:00)
[2021-10-31] MEDS ORDERED: Potassium Replacement Protocol 1 EACH MISC MISCELLANE PRN (07:09)
[2021-10-31 07:19] LABS: Glucose,Whole Blood 160 mg/dL (70-110)
[2021-10-31 07:39] VITALS: BP 121/83; PULSE 79; TEMP 97.9
[2021-10-31] MEDS: DULoxetine HCL 20 MG CAPSULE.DR PO SCH (08:29)
[2021-10-31] MEDS: INSULIN ASPART (NovoLOG) 100 UNIT/ML VIAL SQ SCH ×2 (08:29→13:00)
[2021-10-31] MEDS: LOSARTAN 50 MG TAB PO SCH (08:30)
[2021-10-31] MEDS: POTASSIUM CHLORIDE ER 20 MEQ TAB.ER PO SCH ×2 (08:30→10:54)
--- NOTE | 2021-10-31 08:59 | P.PN ---
Subjective The patient is a pleasant 46-year-old female patient with a past medical history significant for diabetes and hypertension and overweight was transferred from another facility for further evaluation of chest discomfort. For the last several weeks she has been experiencing intermittent episodes of chest discomfort/heart racing. She had heart time differentiating between both. She stated that the symptoms are mostly exertional but sometimes are resting. She underwent an EKG which showed sinus rhythm without any significant ST or T-wave abnormalities and also she underwent 3 sets of cardiac enzymes came in to be unremarkable. The chest x-ray also did not show any acute abnormalities. Yesterday patient continued to have intermittent chest discomfort with activity and at rest. Cardiac catheterization was recommended. Patient underwent cardiac catheterization with Dr. Seo which revealed proximal and mid RCA mild disease only. Distal RCA just before the bifurcation into PDA and PLV branches has a critical lesion appeared to be eccentric in the range of 80-90%. The PDA branch of the RCA appeared to be angiographically normal. The PLV branch has lesion appeared to be in the range of 60-70%. Left main angiographically normal, left circumflex overall appeared to have mild disease only. The LAD is free from any high-grade stenosis. Patient underwent PCI to the distal RCA 10/31/2021: Patient seen and examined at bedside, no distress. She denies any further chest pain or shortness of breath. She overall states that her symptoms have significantly improved since her stent placement. Blood pressure 121/83, heart rate 79, afebrile, saturations 96% on room air Meds: Aspirin 81 mg daily, Effient 10 mg daily, atorvastatin 80 mg nightly, hydrochlorothiazide 50 mg daily, losartan 50 mg twice a day, metoprolol tartrate 12.5 mg twice a day Echo revealed an EF 6065 percent, moderate concentric LVH, mild tricuspid regurgitation Labs: Sodium 135, potassium 3.3, BUN 19, serum creatinine 0.6, WBC 6.7, hemoglobin 15.7, platelets 270 GENERAL: Well-appearing, well-nourished and in no acute distress. NECK: Supple without JVD or thyromegaly. LUNGS: Breath sounds clear to auscultation bilaterally. Respiration equal and unlabored. No wheezes, rales or rhonchi. HEART: Regular rate and rhythm without murmurs, rubs or gallops. S1 and S2 heard. SKIN: Right radial cath site, clean dry 2+ pulses. EXTREMITIES: Normal range of motion, no edema. No clubbing or cyanosis. Peripheral pulses intact. ASSESSMENT Chest discomfort seems to be typical and atypical for angina, continues to have chest discomfort this morning concerning Coronary artery disease status post PCI to the distal RCA on 10/30/2021 Intermittent palpitations Type 2 Diabetes Hypertension PLAN From cardiology perspective, patient stable to be discharged home Continue dual antiplatelet therapy with aspirin and Effient for at least 12 months. Continue statin, losartan, beta mannie Patient to follow up with Dr. Seo in one week, patient with follow up appointment on11/07/21. Nurse Practitioner note has been reviewed, I agree with a documented findings and plan of care. Patient was seen and examined. Objective - Vital Signs Vital signs: Vital Signs Temp 97.9 F 10/31/21 07:00 Pulse 79 10/31/21 07:00 Resp 15 10/31/21 07:00 BP 121/83 10/31/21 07:00 Pulse Ox 96 10/31/21 07:00 FiO2 Intake & Output 10/30/21 10/31/21 10/31/21 18:59 06:59 18:59 Intake Total 608 Balance 608 Weight 90.265 kg Intake: IV 250 Oral 358 Other: Voiding Method Toilet # Voids 3 3 - Labs CBC & Chem 7: 10/31/21 04:48 10/31/21 04:48 Labs: Abnormal Lab Results - Last 24 Hours (Table) 10/30/21 10/30/21 10/30/21 Range/Units 11:41 16:20 19:06 Hct (34.0-46.0) % Sodium (137-145) mmol/L Potassium (3.5-5.1) mmol/L BUN (7-17) mg/dL Glucose (74-99) mg/dL POC Glucose (mg/dL) 197 H 302 H 256 H (70-110) mg/dL 10/30/21 10/31/21 10/31/21 Range/Units 20:37 04:48 04:48 Hct 46.9 H (34.0-46.0) % Sodium 135 L (137-145) mmol/L Potassium 3.3 L (3.5-5.1) mmol/L BUN 19 H (7-17) mg/dL Glucose 140 H (74-99) mg/dL POC Glucose (mg/dL) 223 H (70-110) mg/dL 10/31/21 Range/Units 07:18 Hct (34.0-46.0) % Sodium (137-145) mmol/L Potassium (3.5-5.1) mmol/L BUN (7-17) mg/dL Glucose (74-99) mg/dL POC Glucose (mg/dL) 160 H (70-110) mg/dL
[2021-10-31] MEDS ORDERED: PRASUGREL 10 MG TAB PO SCH (09:00)
[2021-10-31] MEDS ORDERED: ASPIRIN 81 MG PO SCH (09:00)
[2021-10-31] MEDS ORDERED: METOPROLOL TARTRATE 12.5 MG TAB PO SCH (09:00)
[2021-10-31 12:08] LABS: Glucose,Whole Blood 188 mg/dL (70-110)
--- NOTE | 2021-10-31 17:06 | P.DS ---
Providers Date of admission: 10/28/21 15:20 Expected date of discharge: 10/31/21 Attending physician: Yaa Pro MD Consults: 10/28/21 15:05 Consult Physician Urgent Consulting Provider: Alex Charles Consult Reason/Comments: Chest pain Do you want consulting provider notified?: Yes 10/30/21 13:36 Consult Physician Routine Consulting Provider: Alex Charles Consult Reason/Comments: Post Interventional patient Do you want consulting provider notified?: Already Contacted Primary care physician: Physician Nonstaff Hospital Course: Discharge Diagnosis: Coronary artery disease status post PCI to the distal RCA Chest pain secondary to above Intermittent palpitations Diabetes mellitus type 2 Hypertension Newly discovered dyslipidemia Hospital Course: Patient is a 46-year-old female with diabetes, hypertension, and obesity who was transferred here from another facility due to evaluation for chest pain. In the ER she underwent an extensive evaluation. Initial troponin was negative. She was admitted and troponins were trended and remained negative. She was seen by cardiology and underwent an echocardiogram which showed ejection fraction 60-65% with moderate left ventricular hypertrophy. She then underwent cardiac cath requiring stent placement to the distal RCA. Her cholesterol level was 205 with LDL of 142. She was started on statin therapy. She continues to well and her chest pain was improved. We discussed the importance of continuing her dual antiplatelet therapy and not missing any doses. Patient is in agreement. She was determined stable for discharge home. Follow-up: Dr. Seo on 11/07/21, ensure to take her dual antiplatelet therapy. Hold metformin for 48 hours after contrast dye then resume. Patient seen and examined at bedside. She does report still having an aching type of feeling in her anterior chest but is much better than on presentation does not seem pain. She denies any shortness of breath. She states she overall feels well and wants to go home. We discussed the importance of calling the hospital should she develop worsening chest pain or severe chest pain, or worsening shortness of breath. Patient is in agreement. We discussed what medications to take in detail and all questions were answered. Vital signs reviewed and stable. General: nontoxic, no distress, appears at stated age Derm: warm, dry Head: atraumatic, normocephalic, symmetric Eyes: EOMI, no lid lag, anicteric sclera Mouth: no lip lesion, mucus membranes moist Cardiovascular: S1S2 reg, no murmur, positive posterior tibial pulse bilateral, Lungs: CTA bilateral, no rhonchi, no rales , no accessory muscle use Abdominal: soft, nontender to palpation, no guarding, no appreciable organomegaly Ext: no gross muscle atrophy, no edema, no contractures Neuro: CN II-XI grossly intact, no focal neuro deficits Psych: Alert, oriented, appropriate affect A total of 25 minutes of time were spent preparing this complex discharge summary. Patient was discharged on 10/31/21. Plan - Discharge Summary New Discharge Prescriptions: New Aspirin 81 mg PO DAILY #90 tab Nitroglycerin Sl Tabs [Nitrostat] 0.4 mg SUBLINGUAL Q5M PRN #25 tab PRN Reason: Chest Pain Atorvastatin [Lipitor] 80 mg PO HS #90 tab Metoprolol Tartrate [Lopressor] 12.5 mg PO BID #120 tab Prasugrel [Effient] 10 mg PO DAILY #30 tab Continue Losartan [Cozaar] 50 mg PO BID Dulaglutide [Trulicity] 1.5 mg SQ HARP hydroCHLOROthiazide [Hydrodiuril] 50 mg PO DAILY DULoxetine HCL [Cymbalta] 20 mg PO DAILY Metformin Hcl 750mg 750 mg PO DAILY Discontinued Aspirin/Acetaminophen/Caffeine [Excedrin Extra Strength Caplet] 2 tab PO Q12H PRN PRN Reason: Migraine Headache Discharge Medication List DULoxetine HCL [Cymbalta] 20 mg PO DAILY 10/28/21 [History] Dulaglutide [Trulicity] 1.5 mg SQ HARP 10/28/21 [History] Losartan [Cozaar] 50 mg PO BID 10/28/21 [History] Metformin Hcl 750mg 750 mg PO DAILY 10/28/21 [History] hydroCHLOROthiazide [Hydrodiuril] 50 mg PO DAILY 10/28/21 [History] Aspirin 81 mg PO DAILY #90 tab 10/31/21 [Rx] Atorvastatin [Lipitor] 80 mg PO HS #90 tab 10/31/21 [Rx] Metoprolol Tartrate [Lopressor] 12.5 mg PO BID #120 tab 10/31/21 [Rx] Nitroglycerin Sl Tabs [Nitrostat] 0.4 mg SUBLINGUAL Q5M PRN #25 tab 10/31/21 [Rx] Prasugrel [Effient] 10 mg PO DAILY #30 tab 10/31/21 [Rx] Follow up Appointment(s)/Referral(s): Arthur Seo MD [STAFF PHYSICIAN] - 11/07/21 3:15 pm (At [facility]- [address] [place] [address] ([address] on [address]) [phone]) Nonstaff,Physician [Primary Care Provider] - 1-2 days Patient Instructions/Handouts: After Radial Heart Catheterization (GEN), Left Heart Catheterization (DC) Activity/Diet/Wound Care/Special Instructions: Resume Metformin on 11/02/21. Cardiology Instructions After Cardiac Catheterization with Stent Placement: 1. Aspirin as anti-platelet therapy - Aspirin lessens the chance of heart attack and stroke. It helps prevent blood clots from forming, allowing the blood to flow more easily. Each day, you will take one 81 mg (non-enteric coated) tablet daily. You will be taking aspirin as a lifelong medication. Do not stop unless instructed by your doctor. 2. Anti-platelet Therapy. -In addition to aspirin, you will take ONE of the following anti-platelet medications daily. This will help prevent a clot from forming in your stent: Effient (prasugrel) -You will need to take your anti-platelet medicine every day for 12 months -Please consult your heart doctor before you stop this medicine. -They may want you to continue for a longer period of time. 3. Statins -A statin medication lowers cholesterol levels in the blood. This helps slow the progression of heart disease. - Please take your statin medication as prescribed by your doctor. -You may be taking one of the following statins: Lipitor (atorvastatin) Other Medications: -ACEI/ Angiotensin II Receptor Jesica (Your medication: Losartan)- can help your heart work better after a heart attack and decrease the amount of damage from a heart attack -Beta jesica. (Your Medication: Metoprolol) Is a medication that protects your heart from stress and can prevent future heart attacks. It can slow your heart rate. It can take weeks for your body to get used to a beta jesica. The dose may need to be changed a few times as your body adjusts Do not stop taking these medicines without talking to your doctor. -Take all other medicines as directed by your doctor. Do not take any extra aspirin or ibuprofen. They can increase your risk of bleeding. Many [id number] drugs contain aspirin. If you are unsure about what the drug contains, check with your pharmacist before taking it. -For mild discomfort, you may take plain Tylenol (acetaminophen). Follow dose directions, but do not take more than 4,000 mg of acetaminophen in 24 hours. Contact your doctor right away or go to the nearest hospital Emergency Room if you have: -Severe angina or chest pain. (This may be a sign of a problem with your stent.) -Excessive bruising, blood in urine/stool or black tarry stools. Healthy LifeStyle It is important to keep a heart healthy lifestyle. This can improve your long- term health and decrease your risk for heart attacks. -Quitting tobacco: the most important thing you can do to protect your health. -Managing your blood cholesterol, blood pressure, weight, and stress. -The importance of regular exercise. -Heart Healthy Diet: Include more plants in your diet. Eat lots of fresh v egetables and fresh fruits. Eat good fats: plant based oils, avocado, nuts, beans, legumes. Eat more seafood. Limit Meat. Switch to whole grains. -Avoid fried foods and animal fats and processed meats Follow up with [facility], [place] [phone] Discharge Disposition: HOME SELF-CARE
== END 2021-10-31 15:06 | disposition home or self-care (01) ==
LOC: EC 13:09 → 6NMEDSUR 15:20
PROVIDERS: ADMIT Family Medicine; ATTEND Family Medicine
DX: I25.110 Atherosclerotic heart disease of native coronary artery with unstable angina pectoris (principal); R00.2 Palpitations; E11.9 Type 2 diabetes mellitus without complications; I11.9 Hypertensive heart disease without heart failure; M06.9 Rheumatoid arthritis, unspecified; E66.9 Obesity, unspecified; Z68.34 Body mass index [BMI] 34.0-34.9, adult; F32.A Depression, unspecified; R20.0 Anesthesia of skin; I49.9 Cardiac arrhythmia, unspecified; E78.5 Hyperlipidemia, unspecified; E78.00 Pure hypercholesterolemia, unspecified; I07.1 Rheumatic tricuspid insufficiency; Z71.9 Counseling, unspecified; Z79.899 Other long term (current) drug therapy; Z79.84 Long term (current) use of oral hypoglycemic drugs; Z79.02 Long term (current) use of antithrombotics/antiplatelets; Z79.82 Long term (current) use of aspirin; Z82.49 Family history of ischemic heart disease and other diseases of the circulatory system
CPT/HCPCS: 99285; 36415; 93005; 93306; 93454; 85379; 80061; 80053; 80048; 83735; 84443; 84484; 85025 ×2; 85610; 85730; 80306; 71046; G0378 ×4; C1769 ×3; C9600; C1887; C1725 ×2; C1874; J2250; J2001; J1644; J1170; J2370; Q9967

== ENCOUNTER 2021-12-27 10:26 | Observation (INO) | payer BC ==
[2021-12-27 12:27] LABS: Basophils % (A) 0 %; Eosinophils # (A) 0.1 k/uL (0-0.7); Eosinophils % (A) 1 %; HCT 44.7 % (34.0-46.0); HGB 15.3 gm/dL (11.4-16.0); Lymphocytes # (A) 1.8 k/uL (1.0-4.8); Lymphocytes % (A) 21 %; MCH 29.1 pg (25.0-35.0); MCHC 34.2 g/dL (31.0-37.0); MCV 85.1 fL (80.0-100.0); Mean Platelet Volume 7.8; Monocytes # (A) 0.2 k/uL (0-1.0); Monocytes % (A) 2 %; Neutrophils # (A) 6.3 k/uL (1.3-7.7); Neutrophils % (A) 74 %; Platelet Count 293 k/uL (150-450); RBC 5.25 m/uL (3.80-5.40); RDW 12.2 % (11.5-15.5); WBC 8.5 k/uL (3.8-10.6)
--- NOTE | 2021-12-27 12:33 | XR ---
EXAMINATION TYPE: XR chest 2V DATE OF EXAM: 12/27/2021 COMPARISON: 10/28/2021 INDICATION: Chest pain and dizziness TECHNIQUE: Frontal and lateral views of the chest are obtained. FINDINGS: The heart size is normal. The pulmonary vasculature is normal. The lungs are clear. IMPRESSION: 1. No acute pulmonary process.
[2021-12-27 12:40] LABS: ALT 52 U/L (4-34); AST 29 U/L (14-36); African American GFR (CKD) >90 (>60 ml/min/1.73 sqM); Albumin 4.9 g/dL (3.5-5.0); Alkaline Phosphatase 131 U/L (38-126); Anion Gap 16 mmol/L; Blood Urea Nitrogen 25 mg/dL (7-17); Calcium 10.1 mg/dL (8.4-10.2); Carbon Dioxide 30 mmol/L (22-30); Chloride 92 mmol/L (98-107); Glucose 242 mg/dL (74-99); INR 0.9 (<1.2); Magnesium 1.3 mg/dL (1.6-2.3); Non-African American GFR(CKD) >90 (>60 ml/min/1.73 sqM); Partial Thromboplastin Time 22.9 sec (22.0-30.0); Potassium 3.5 mmol/L (3.5-5.1); Sodium 138 mmol/L (137-145); Total Bilirubin 0.5 mg/dL (0.2-1.3); Total Protein 7.5 g/dL (6.3-8.2)
--- NOTE | 2021-12-27 13:42 | ED ---
Chest Pain HPI - General Chief Complaint: Chest Pain Stated Complaint: chest pain Time Seen by Provider: 12/27/21 11:54 Source: patient, RN notes reviewed Mode of arrival: ambulatory Limitations: no limitations - History of Present Illness Initial Comments: This is a 46-year-old female presents emergency Department with chief complaint of chest pain. Patient states she's had increase in chest pain last several days. Patient does admit that she had a cardiac stent placed 2 months ago. Patient states that she started developing pain very similar to her prior chest pain in which she is found to have new OCCLUSION AND STENT WAS PLACED. PATIENT DOES HAVE A HISTORY OF HYPERTENSION, DIABETES. PATIENT STATES SHE STARTED ON NEW MEDICATION AFTER HER CARDIAC STENT SHE DOES ADMIT THAT SHE'S BEEN TAKING NITRO WITH IT'S BEEN ALLEVIATING HER CHEST PAIN. - Related Data Home Medications Medication Instructions Recorded Confirmed DULoxetine HCL [Cymbalta] 20 mg PO DAILY 10/28/21 10/28/21 Dulaglutide [Trulicity] 1.5 mg SQ HARP 10/28/21 10/28/21 Losartan [Cozaar] 50 mg PO BID 10/28/21 10/28/21 Metformin Hcl 750mg 750 mg PO DAILY 10/28/21 10/28/21 hydroCHLOROthiazide [Hydrodiuril] 50 mg PO DAILY 10/28/21 10/28/21 Previous Rx's Medication Instructions Recorded Aspirin 81 mg PO DAILY #90 tab 10/31/21 Atorvastatin [Lipitor] 80 mg PO HS #90 tab 10/31/21 Metoprolol Tartrate [Lopressor] 12.5 mg PO BID #120 tab 10/31/21 Nitroglycerin Sl Tabs [Nitrostat] 0.4 mg SUBLINGUAL Q5M PRN #25 tab 10/31/21 Prasugrel [Effient] 10 mg PO DAILY #30 tab 10/31/21 Allergies Allergy/AdvReac Type Severity Reaction Status Date / Time No Known Allergies Allergy Verified 10/28/21 15:53 Review of Systems ROS Statement: Those systems with pertinent positive or pertinent negative responses have been documented in the HPI. ROS Other: All systems not noted in ROS Statement are negative. EKG Findings - EKG Comments: EKG Findings:: EKG performed at 10:34 sinus rhythm rate of 76 WI 152 QRS 102 QT status QTC 345/375 Past Medical History Past Medical History: Coronary Artery Disease (CAD), Diabetes Mellitus, Hypertension, Rheumatoid Arthritis (RA) Additional Past Medical History / Comment(s): RA History of Any Multi-Drug Resistant Organisms: None Reported Past Surgical History: Heart Catheterization With Stent Past Psychological History: No Psychological Hx Reported Smoking Status: Never smoker Past Alcohol Use History: None Reported Past Drug Use History: None Reported General Exam Limitations: no limitations General appearance: alert, in no apparent distress Head exam: Present: atraumatic, normocephalic, normal inspection Eye exam: Present: normal appearance, PERRL, EOMI. Absent: scleral icterus, conjunctival injection, periorbital swelling ENT exam: Present: normal exam, normal oropharynx, mucous membranes moist Neck exam: Present: normal inspection, full ROM. Absent: tenderness, meningismus, lymphadenopathy Respiratory exam: Present: normal lung sounds bilaterally. Absent: respiratory distress, wheezes, rales, rhonchi, stridor Cardiovascular Exam: Present: regular rate, normal rhythm, normal heart sounds. Absent: systolic murmur, diastolic murmur, rubs, gallop, clicks GI/Abdominal exam: Present: soft, normal bowel sounds. Absent: distended, tenderness, guarding, rebound, rigid Course Vital Signs 12/27/21 12/27/21 12/27/21 10:30 12:30 12:43 Temperature 98.3 F Pulse Rate 78 81 Pulse Rate [ 80 [employer] ] Respiratory 16 18 Rate Blood Pressure 149/95 118/81 O2 Sat by Pulse 100 99 Oximetry 12/27/21 13:05 Temperature Pulse Rate 83 Pulse Rate [ [employer] ] Respiratory 18 Rate Blood Pressure 125/88 O2 Sat by Pulse 98 Oximetry Chest Pain MDM - [facility] 46-year-old female presented from for chest pain. Initial workup reveals mild hypomagnesemia, troponin negative. Patient had recent cardiac stenting and was patient will be admitted for cardiology evaluation. Disposition Clinical Impression: Chest pain, Hypomagnesemia Disposition: ADMITTED IP TO THIS HOSP Condition: Fair Referrals: Nonstaff,Physician [Primary Care Provider] - 1-2 days Time of Disposition: 13:42
[2021-12-27] MEDS ORDERED: MAGNESIUM OXIDE 400 MG TAB PO STA (13:45)
[2021-12-27] MEDS ORDERED: NITROGLYCERIN SL TABS 0.4 MG TAB SUBLINGUAL PRN (13:48)
[2021-12-27] MEDS ORDERED: METOPROLOL TARTRATE 12.5 MG TAB PO SCH (14:00)
[2021-12-27] MEDS ORDERED: NON FORMULARY DRUG (Liraglutide [Victoza 3-Pak] 0.6 MG/0.1 ML Ml) SQ SCH (14:30)
[2021-12-27] MEDS ORDERED: DEXTROSE 50% SYRINGE 50 ML IVP PRN ×2 (14:46)
[2021-12-27] MEDS: MAGNESIUM SULFATE-D5W PMX 1 GM in DEXTROSE/WATER 1 100ML.BAG IVPB SCH ×2 (14:50→16:11)
[2021-12-27] MEDS: FAMOTIDINE 20 MG TAB PO SCH (15:13)
[2021-12-27] MEDS: HEPARIN SODIUM,PORCINE/PF 5,000 UNIT/0.5 ML SYRINGE SQ SCH (15:13)
[2021-12-27] MEDS ORDERED: MORPHINE SULFATE 2 MG/ML SYRINGE IVP PRN (15:39)
--- NOTE | 2021-12-27 15:42 | P.HPIM ---
History of Present Illness H&P Date: 12/27/21 This is a 46-year-old female who presents to [facility] with sudden onset chest pain that started this past . Patient describes the pain as sharp and radiating to the back. Chest pain is relieved with nitro. Patient also admits to diaphoresis shortness of breath and fatigue associated with the pain. Patient was scheduled to have a repeat stress test today at 2:00 PM. However, due to the extent of the chest pain patient came into the ER for further evaluation. Patient had a cardiac stent placed [address] Garcia. Patient describes the pain very similar to her initial episode that resulted in a cardiac stent. Patient has medical history of uncontrolled diabetes mellitus type 2, hyperlipidemia, coronary artery disease, anxiety/depression and hypertension. Vitals are currently stable cardiac enzymes 1 are within normal limits. Chest x-ray is negative for acute cardiopulmonary process. EKG reveals normal sinus rhythm. Review of Systems A 14 point review systems was assessed patient was only positive for those pertinent in HPI Past Medical History Past Medical History: Coronary Artery Disease (CAD), Diabetes Mellitus, Hypertension, Rheumatoid Arthritis (RA) Additional Past Medical History / Comment(s): RA History of Any Multi-Drug Resistant Organisms: None Reported Past Surgical History: Heart Catheterization With Stent Past Psychological History: No Psychological Hx Reported Smoking Status: Never smoker Past Alcohol Use History: None Reported Past Drug Use History: None Reported Medications and Allergies Home Medications Medication Instructions Recorded Confirmed Type DULoxetine HCL [Cymbalta] 20 mg PO DAILY 10/28/21 12/27/21 History Losartan [Cozaar] 50 mg PO BID 10/28/21 12/27/21 History hydroCHLOROthiazide [Hydrodiuril] 50 mg PO DAILY 10/28/21 12/27/21 History Aspirin 81 mg PO DAILY #90 tab 10/31/21 12/27/21 Rx Atorvastatin [Lipitor] 80 mg PO HS #90 tab 10/31/21 12/27/21 Rx Nitroglycerin Sl Tabs [Nitrostat] 0.4 mg SUBLINGUAL Q5M PRN #25 tab 10/31/21 12/27/21 Rx Prasugrel [Effient] 10 mg PO DAILY #30 tab 10/31/21 12/27/21 Rx Liraglutide [Victoza 3-Louis] 1.2 mg SQ DAILY@1430 12/27/21 12/27/21 History Metformin Er 750mg 750 mg PO DAILY 12/27/21 12/27/21 History Metoprolol Tartrate [Lopressor] 12.5 - 25 mg PO DIRECTED 12/27/21 12/27/21 History Allergies Allergy/AdvReac Type Severity Reaction Status Date / Time No Known Allergies Allergy Verified 12/27/21 13:43 Physical Exam Osteopathic Statement: *. No significant issues noted on an osteopathic structural exam other than those noted in the History and Physical/Consult. Vitals: Vital Signs Temp Pulse Pulse Resp BP Pulse Ox 12/27/21 14:45 84 16 126/91 98 12/27/21 13:05 83 18 125/88 98 12/27/21 12:43 80 12/27/21 12:30 81 18 118/81 99 12/27/21 10:30 98.3 F 78 16 149/95 100 Intake and Output 12/27/21 12/27/21 12/27/21 06:59 14:59 22:59 Other: Weight 88.451 kg General: [non toxic], [no distress], [appears at stated age] Derm: [warm], [dry] Head: [atraumatic], [normocephalic], [symmetric] Eyes: [EOMI], [no lid lag], [anicteric sclera] Mouth: [no lip lesion], [mucus membranes moist] Cardiovascular: [S1S2 reg], [no murmur], [positive posterior tibial pulse bilateral], Lungs: [CTA bilateral], [no rhonchi, no rales] , [no accessory muscle use] Abdominal: [soft], [ nontender to palpation], [no guarding], [no appreciable o rganomegaly] Ext: [no gross muscle atrophy], [no edema], [no contractures] Neuro: [ CN II-XI grossly intact], [no focal neuro deficits] Psych: [Alert], [oriented], [appropriate affect] Results CBC & Chem 7: 12/27/21 12:18 12/27/21 12:18 Labs: Abnormal Lab Results - Last 24 Hours (Table) 12/27/21 Range/Units 12:18 Chloride 92 L (98-107) mmol/L BUN 25 H (7-17) mg/dL Glucose 242 H (74-99) mg/dL Magnesium 1.3 L (1.6-2.3) mg/dL ALT 52 H (4-34) U/L Alkaline Phosphatase 131 H (38-126) U/L Thrombosis Risk Factor Assmnt - DVT/VTE Prophylaxis DVT/VTE Prophylaxis: Pharmacologic Prophylaxis ordered Assessment and Plan Assessment: 1. Chest pain rule out ACS Troponin 1 negative continue to trend Telemetry Check d-dimer Consult cardiology Admit to observation 2. Uncontrolled type 2 diabetes mellitus Insulin sliding scale Check hemoglobin A1c Resume home medications Hold metformin 3. Elevated AST and alk phos' Check abdominal ultrasound 4. Hypomagnesemia Magnesium 2 g IV piggyback Recheck in a.m. 5. Hyperlipidemia Restart aspirin and statin 6. Coronary artery disease status post PTCA Resume Effient and statin 7. History of hypertension Resume diuretic 8. GI DVT prophylaxis 9. A.m. labs Greater than 40 minutes spent coordinating care documenting and counseling patient Disposition: Observation Patient is a full code Time with Patient: Greater than 30
[2021-12-27] MEDS: INSULIN ASPART (NovoLOG) 100 UNIT/ML VIAL SQ SCH ×2 (18:56→20:31)
[2021-12-27 20:26] LABS: Glucose,Whole Blood 243 mg/dL (70-110)
[2021-12-27] MEDS: LOSARTAN 50 MG TAB PO SCH (20:31)
[2021-12-27] MEDS ORDERED: ACETAMINOPHEN TAB 325 MG TAB PO PRN (20:34)
[2021-12-27] MEDS ORDERED: ATORVASTATIN 80 MG TAB PO SCH (21:00)
[2021-12-28] MEDS: HEPARIN SODIUM,PORCINE/PF 5,000 UNIT/0.5 ML SYRINGE SQ SCH ×2 (00:35→09:33)
[2021-12-28 02:19] VITALS: TEMP 97.7
[2021-12-28 07:16] LABS: Glucose,Whole Blood 207 mg/dL (70-110)
--- NOTE | 2021-12-28 08:07 | US ---
EXAMINATION TYPE: US abdomen complete DATE OF EXAM: 12/28/2021 COMPARISON: NONE CLINICAL HISTORY: elevated liver enzyme. TECHNIQUE: Multiple sonographic images of the abdomen are obtained. FINDINGS: EXAM MEASUREMENTS: Liver Length: 15.8 cm Gallbladder Wall: 0.21 cm CBD: 0.32 cm Spleen: 12.0 cm Right Kidney: 11.7 x 4.3 x 4.7 cm Left Kidney: 10.8 x 5.6 x 3.7 cm ASSEMBLER FILTERS NOTES: Limited by overlying bowel gas Pancreas: Tail obscured by overlying bowel gas. Otherwise unremarkable. Liver: wnl there are no solid or cystic masses. No intrahepatic biliary duct dilatation. Gallbladder: wnl. No pericholecystic fluid, shadowing calculi, or wall thickening. Evidence for sonographic Mccabe's sign: No CBD: wnl Spleen: wnl Right Kidney: wnl . No hydronephrosis, shadowing calculi, or contour deforming solid mass. Left Kidney: wnl . No hydronephrosis, shadowing calculi, or contour deforming solid mass. Upper IVC: wnl Abd Aorta: wnl IMPRESSION: Limited examination due to overlying bowel gas without evidence for acute process.
[2021-12-28 08:32] VITALS: BP 123/79; PULSE 66; RESP 18
[2021-12-28] MEDS ORDERED: ASPIRIN 81 MG PO SCH (09:00)
[2021-12-28] MEDS ORDERED: PRASUGREL 10 MG TAB PO SCH (09:00)
[2021-12-28] MEDS ORDERED: metFORMIN 500 MG TAB PO SCH (09:00)
[2021-12-28] MEDS ORDERED: ASPIRIN 325 MG TAB PO SCH (09:00)
[2021-12-28] MEDS ORDERED: DULoxetine HCL 20 MG CAPSULE.DR PO SCH (09:00)
[2021-12-28 09:03] LABS: ALT 43 U/L (8-44); AST 21 U/L (13-35); African American GFR (CKD) 122.1 (60.0-200.0); Alkaline Phosphatase 93 U/L (41-126); BUN/Creat Ratio 28.57 Ratio (12.00-20.00); Carbon Dioxide 29.6 mmol/L (20.0-27.5); Chloride 99 mmol/L (96-109); Globulin 2.1 g/dL (1.6-3.3); Glucose 207 mg/dL (70-110); LDL Cholesterol,Calculated 29.8 mg/dL (0.0-131.0); Magnesium 1.7 mg/dL (1.5-2.4); Non-African American GFR(CKD) 105.4 (60.0-200.0); Potassium 3.6 mmol/L (3.5-5.5); Sodium 138 mmol/L (135-145); Total Protein 6.1 g/dL (6.2-8.2)
[2021-12-28 09:04] LABS: Basophils # (A) 0.03 X 10*3/uL (0.00-0.10); Basophils % (A) 0.6 %; Eosinophils # (A) 0.05 X 10*3/uL (0.04-0.35); HCT 39.5 % (37.2-46.3); HGB 13.7 g/dL (12.0-15.0); Immature Grans, Automated 0.2 %; Lymphocytes # (A) 2.25 X 10*3/uL (0.90-5.00); Lymphocytes % (A) 43.9 %; MCH 28.9 pg (27.0-32.0); MCHC 34.7 g/dL (32.0-37.0); MCV 83.3 fL (80.0-97.0); Mean Platelet Volume 10.6 fL (9.5-12.2); Monocytes # (A) 0.32 X 10*3/uL (0.20-1.00); Monocytes % (A) 6.2 %; NRBC Per 100 WBC 0 /100 WBCS (0.0-0.0); Neutrophils # (A) 2.47 X 10*3/uL (1.80-7.70); Neutrophils % (A) 48.1 %; Platelet Count 267 X 10*3/uL (140-440); RBC 4.74 X 10*6/uL (4.10-5.20); RDW 12.1 % (11.5-14.5); WBC 5.13 X 10*3/uL (4.50-10.00)
[2021-12-28] MEDS: INSULIN ASPART (NovoLOG) 100 UNIT/ML VIAL SQ SCH ×2 (09:33→13:01)
[2021-12-28] MEDS: FAMOTIDINE 20 MG TAB PO SCH (09:33)
[2021-12-28] MEDS: LOSARTAN 50 MG TAB PO SCH (09:33)
--- NOTE | 2021-12-28 09:53 | P.CRDCN ---
History of Present Illness History of present illness: HISTORY OF PRESENTING ILLNESS This is a pleasant 46-year-old female past medical history significant for coronary artery disease s/p PCI to the distal RCA on 10/30/2021, type 2 diabetes, hypertension. She follows in the office with Dr. Seo. We have been asked to see in consultation for chest pain. Patient presents to the emergency department with complaints of chest discomfort, dizziness, lightheadedness, and shortness of breath. Symptoms began , She had midsternal chest heaviness and pressure, non-radiating, non-exertional. She had associated lightheadedness and dizziness, had to sit down, which helped resolved those symptoms. She states she took a nitro with some relief. On Saturday, her symptoms returned, she tried a Nitro again and had no relief. She did have some nausea but recently she had a med change form Trulicity to Victoza. She denies any diaphoresis, vomiting, syncope, loss of consciousness. She is currently chest pain free. Symptoms are not as similar to her stenting in 10/2021, at that time she had similar chest discomfort but had radiation to her jaw, palpitations and symptoms persisted with activity. She is a non-smoker. She did follow up with Dr. Seo on 12/26/2021, stress test was scheduled for yesterday 12/27, however, patient could not make it to the appointment. DIAGNOSTICS * EKG reveals sinus rhythm HR 76, non-specific ST-T wave abnormality. Prior EKG with no significant changes. * Cardiac Catheterization 10/30/2021- Critical disease involving the distal RCA. Intermediate to severe disease involving the PLV branch of the RCA in the range of 60-70%. Successful stenting of the distal RCA. * Echocardiogram 10/2021 revealed an EF 6065 %, moderate concentric LVH, mild tricuspid regurgitation * Telemetry tracings indicate sinus rhythm with heart rate 70s80s * Chest xray no acute cardiopulmonary process * Laboratory reviewed, CBC unremarkable, Sodium 138, K 3.5, BUN 25, sCr 0.66, Mag 1.3, Troponin negative. * Current home medications include Losartan 50mg BID, metoprolol tartrate 25mg BID, Effient 10mg daily, hydrochlorthiazide 50mg daily, aspirin 81mg daily. REVIEW OF SYSTEMS At the time of my exam: CONSTITUTIONAL: Denies fever or chills. CARDIOVASCULAR: Denies chest pain, shortness of breath, orthopnea, PND or palpitations. RESPIRATORY: Denies cough. GASTROINTESTINAL: Denies abdominal pain, diarrhea, constipation, nausea or vomiting. MUSCULOSKELETAL: Denies myalgias. NEUROLOGIC: Denies numbness, tingling, headache or weakness. ENDOCRINE: Denies fatigue, weight change, polydipsia or polyurina. GENITOURINARY: Denies burning, hematuria or urgency with micturation. HEMATOLOGIC: Denies history of anemia or bleeding. PHYSICAL EXAMINATION Blood pressure 123/79, heart 66, afebrile, saturations 100% on room air CONSTITUTIONAL: No apparent distress. HEENT: Head is normocephalic. Pupils are equal, round. Sclerae anicteric. Mucous membranes of the mouth are moist. No JVD. No carotid bruit. CHEST EXAMINATION: Lungs are clear to auscultation. No chest wall tenderness is noted on palpation or with deep breathing. HEART EXAMINATION: Regular rate and rhythm. S1, S2 heard. No murmurs, gallops or rub. ABDOMEN: Soft, nontender. Positive bowel sounds. EXTREMITIES: 2+ peripheral pulses, no lower extremity edema and no calf tenderness. SKIN: warm, dry NEUROLOGIC EXAMINATION: Patient is awake, alert and oriented x3. ASSESSMENT Chest pain, acute coronary syndrome has been ruled out Coronary artery disease s/p PCI to the distal RCA on 10/30/2021 Type 2 diabetes Hypertension PLAN An acute coronary event has been ruled out with no EKG evidence of ischemia and negative cardiac enzymes. Perform Cardiolyte stress test to assess for stress induced cardiac ischemia. If abnormal will consider coronary angiography. Continue dual antiplatelet therapy with aspirin and Effient. Continue aspirin, statin, hydrochlorothiazide, losartan Restart beta mannie after stress test If stress test with no evidence of reversible ischemia, no further inpatient workup from a cardiology perspective. Close follow up with Dr. Seo outpatient Thank you kindly for this consultation. Nurse practitioner note has been reviewed by physician. Signing provider agrees with the documented findings, assessment, and plan of care. Past Medical History Past Medical History: Coronary Artery Disease (CAD), Diabetes Mellitus, Hypertension, Rheumatoid Arthritis (RA) Additional Past Medical History / Comment(s): RA History of Any Multi-Drug Resistant Organisms: None Reported Past Surgical History: Heart Catheterization With Stent Additional Past Surgical History / Comment(s): D&C Past Anesthesia/Blood Transfusion Reactions: No Reported Reaction Date of Last Stent Placement:: 10/28/21 Past Psychological History: No Psychological Hx Reported Smoking Status: Never smoker Past Alcohol Use History: None Reported Past Drug Use History: None Reported - Past Family History Mother Family Medical History: Cancer Additional Family Medical History / Comment(s): lung cancer - at age 39 Father Family Medical History: Cancer Additional Family Medical History / Comment(s): committed suicide 5 years ago Medications and Allergies Home Medications Medication Instructions Recorded Confirmed Type DULoxetine HCL [Cymbalta] 20 mg PO DAILY 10/28/21 12/27/21 History Losartan [Cozaar] 50 mg PO BID 10/28/21 12/27/21 History hydroCHLOROthiazide [Hydrodiuril] 50 mg PO DAILY 10/28/21 12/27/21 History Aspirin 81 mg PO DAILY #90 tab 10/31/21 12/27/21 Rx Atorvastatin [Lipitor] 80 mg PO HS #90 tab 10/31/21 12/27/21 Rx Nitroglycerin Sl Tabs [Nitrostat] 0.4 mg SUBLINGUAL Q5M PRN #25 tab 10/31/21 12/27/21 Rx Prasugrel [Effient] 10 mg PO DAILY #30 tab 10/31/21 12/27/21 Rx Liraglutide [Victoza 3-Louis] 1.2 mg SQ DAILY@1430 12/27/21 12/27/21 History Metformin Er 750mg 750 mg PO DAILY 12/27/21 12/27/21 History Metoprolol Tartrate [Lopressor] 12.5 - 25 mg PO DIRECTED 12/27/21 12/27/21 History Allergies Allergy/AdvReac Type Severity Reaction Status Date / Time No Known Allergies Allergy Verified 12/27/21 13:43 Physical Exam Vitals: Vital Signs Temp Pulse Pulse Resp BP BP Pulse Ox 12/28/21 00:36 97.7 F 79 16 106/60 96 12/27/21 19:19 98.5 F 110 H 17 126/84 96 12/27/21 17:26 98.2 F 92 18 128/92 97 12/27/21 16:37 98.2 F 92 18 128/92 97 12/27/21 14:45 84 16 126/91 98 12/27/21 13:05 83 18 125/88 98 12/27/21 12:43 80 12/27/21 12:30 81 18 118/81 99 12/27/21 10:30 98.3 F 78 16 149/95 100 Intake and Output 12/27/21 12/28/21 12/28/21 22:59 06:59 14:59 Other: Voiding Method Toilet # Voids 1 2 Weight 88.451 kg Results 12/28/21 05:47 12/28/21 05:47 Cardiac Enzymes 12/27/21 12/27/21 12/27/21 Range/Units 12:18 12:18 14:49 AST 29 (14-36) U/L Troponin I <0.012 <0.012 (0.000-0.034) ng/mL 12/27/21 Range/Units 17:29 AST (14-36) U/L Troponin I <0.012 (0.000-0.034) ng/mL Coagulation 12/27/21 Range/Units 12:18 PT 10.0 (9.0-12.0) sec APTT 22.9 (22.0-30.0) sec CBC 12/27/21 Range/Units 12:18 WBC 8.5 (3.8-10.6) k/uL RBC 5.25 (3.80-5.40) m/uL Hgb 15.3 (11.4-16.0) gm/dL Hct 44.7 (34.0-46.0) % Plt Count 293 (150-450) k/uL Comprehensive Metabolic Panel 12/27/21 Range/Units 12:18 Sodium 138 (137-145) mmol/L Potassium 3.5 (3.5-5.1) mmol/L Chloride 92 L (98-107) mmol/L Carbon Dioxide 30 (22-30) mmol/L BUN 25 H (7-17) mg/dL Creatinine 0.66 (0.52-1.04) mg/dL Glucose 242 H (74-99) mg/dL Calcium 10.1 (8.4-10.2) mg/dL AST 29 (14-36) U/L ALT 52 H (4-34) U/L Alkaline Phosphatase 131 H (38-126) U/L Total Protein 7.5 (6.3-8.2) g/dL Albumin 4.9 (3.5-5.0) g/dL Current Medications Generic Name Dose Route Start Last Admin Trade Name Freq PRN Reason Stop Dose Admin Acetaminophen 650 mg 12/27/21 20:34 12/27/21 20:39 Acetaminophen Tab 325 Mg Tab PO 650 mg Q4HR PRN Administration Fever and/ or Pain Aspirin 325 mg 12/28/21 09:00 Aspirin 325 Mg Tab PO DAILY [facility] Atorvastatin Calcium 80 mg 12/27/21 21:00 12/27/21 20:31 Atorvastatin 80 Mg Tab PO 80 mg HS VARSHA Administration Dextrose/Water 25 ml 12/27/21 14:46 Dextrose 50% Syringe 50 Ml IVP PER PROTOCOL PRN Hypoglycemia Protocol Dextrose/Water 50 ml 12/27/21 14:46 Dextrose 50% Syringe 50 Ml IVP PER PROTOCOL PRN Hypoglycemia Protocol Duloxetine HCl 20 mg 12/28/21 09:00 Duloxetine Hcl 20 Mg Capsule.Dr PO DAILY [facility] Famotidine 20 mg 12/27/21 15:00 12/27/21 15:13 Famotidine 20 Mg Tab PO 20 mg DAILY VARSHA Administration Heparin Sodium (Porcine) 5,000 unit 12/27/21 16:00 12/28/21 00:35 Heparin Sodium,Porcine/Pf 5,000 Unit/0.5 Ml Syringe SQ 5,000 unit Q8HR VARSHA Administration Hydrochlorothiazide 50 mg 12/28/21 09:00 Hydrochlorothiazide 50 Mg Tab PO DAILY [facility] Insulin Aspart 0 unit 12/27/21 17:30 12/27/21 20:31 Insulin Aspart (Novolog) 100 Unit/Ml Vial SQ 4 unit AC-TID VARSHA Administration Protocol Losartan Potassium 50 mg 12/27/21 21:00 12/27/21 20:31 Losartan 50 Mg Tab PO 50 mg BID VARSHA Administration Morphine Sulfate 2 mg 12/27/21 15:39 Morphine Sulfate 2 Mg/Ml Syringe IVP Q6HR PRN Pain/Discomfort Nitroglycerin 0.4 mg 12/27/21 13:48 Nitroglycerin Sl Tabs 0.4 Mg Tab SUBLINGUAL Q5M PRN Chest Pain Prasugrel 10 mg 12/28/21 09:00 Prasugrel 10 Mg Tab PO DAILY [facility] Intake and Output 12/27/21 12/28/21 12/28/21 22:59 06:59 14:59 Other: Voiding Method Toilet # Voids 1 2 Weight 88.451 kg 12/27/21 12:18 12/27/21 12:18
[2021-12-28 12:24] LABS: Glucose,Whole Blood 187 mg/dL (70-110)
--- NOTE | 2021-12-28 12:29 | NM ---
EXAMINATION TYPE: NM stress cardiolite complete DATE OF EXAM: 12/28/2021 COMPARISON: NONE HISTORY: Chest pain. History of hypertension along with prior angioplasty. TECHNIQUE: After the intravenous administration of 10.2 mCi Tc 99m Sestamibi - Rest images obtained 50 minutes post injection. The patient exercised using a JADE protocol and 1 minute prior to peak exercise was injected with 25.6 mCi Tc 99m Sestamibi - Stress images obtained 15 minutes post injecti on. FINDINGS: Targeted heart rate was achieved during performance of the study. Review of stress and rest SPECT jeniffer ges demonstrates no distinct perfusion abnormality. Gated analysis shows normal wall motion with an estimated left ventricular ejection fraction of 70 %. IMPRESSION: No scintigraphic evidence for reversible ischemia
--- NOTE | 2021-12-28 12:57 | CA ---
Exercise Stress Test Report Name: Daphney Rico Exam Date: 12/28/2021 11:34 Exam Location: [place] Stress Ht (in): 61 Wt (lb): 198 BSA: 1.88 Ordering Phys: Chris Ramires MD Referring Phys: JOHNNY, Technologist: Jeffery Beck Age: 46 Gender: F : 1975 Procedure CPT: Indications: Reflex order-Stress test ICD-10 Codes: Patient History: Chest pain, vertigo and shortness of breath Medications: Meds past 24 hrs: Pretest Chest Pain: STRESS TEST Hernán Protocol Exercise Duration (min:sec): 07:[address] Depressions (mm): Angina Score: Johnson Score: Resting HR (bpm): 90 Peak HR (bpm): 165 Resting BP (mmHg): 114 / 75 Peak BP (mmHg): 149 / 80 MPHR: 176 Target HR: 150 % MPHR: 94 METS: 10.3 Total Dose: Peak Dose: Atropine: Double Product: 85756 BP Response: Normal Resting Blood Pressure - Appropriate Stress Termination: TARGET HR REACHED/MAX EXERTION Stress Symptoms: CHEST PAIN "3" Stress Summary: The patient's target heart rate was achieved ECG ANALYSIS Resting ECG: Sinus rhythm. Normal conduction. No arrhythmias. Normal repolarization. Stress ECG: No ECG evidence of ischemia with exercise. Ventricular premature contraction. CONCLUSIONS 1. Average exercise tolerance 2. Normal left electrocardiographic response to exercise 3. Occasional PVCs 4. Nuclear images will be reported separately Dr. Chris Ramires MD (Electronically Signed) Final Date: 28 December 2021 12:56
--- NOTE | 2021-12-28 13:53 | P.DS ---
Providers Date of admission: 12/27/21 13:53 Expected date of discharge: 12/28/21 Attending physician: Juani Crouch DO Consults: 12/27/21 13:48 Consult Physician Urgent Consulting Provider: Arthur Soe Consult Reason/Comments: chest pain Do you want consulting provider notified?: Yes Primary care physician: Physician Nonstaff Assessment: Admitting diagnosis: Chest pain Discharge diagnoses: Angina Uncontrolled type 2 diabetes mellitus Hyperlipidemia Coronary artery disease status post PTCA Hypertension Hospital course: This is a 46-year-old female who presents to [facility] with sudden onset chest pain that started this past . Patient describes the pain as sharp and radiating to the back. Chest pain is relieved with nitro. Patient also admits to diaphoresis shortness of breath and fatigue associated with the pain. Patient was scheduled to have a repeat stress test today at 2:00 PM. However, due to the extent of the chest pain patient came into the ER for further evaluation. Patient had a cardiac stent placed [address] Garcia. Patient describes the pain very similar to her initial episode that resulted in a cardiac stent. Patient has medical history of uncontrolled diabetes mellitus type 2, hyperlipidemia, coronary artery disease, anxiety/depression and hypertension. Vitals are currently stable cardiac enzym es 1 are within normal limits. Chest x-ray is negative for acute cardiopulmonary process. EKG reveals normal sinus rhythm. 1. Chest pain rule out ACS Troponin negative Telemetry placed d-dimer within normal limits Cardiology followed stress test was ordered and revealed no evidence of stress- induced ischemia 2. Uncontrolled type 2 diabetes mellitus Insulin sliding scale hemoglobin A1c 10.7% Resume home medications Follow-up with PCP 3. Elevated AST and alk phos resolved Abdominal ultrasound within normal limits 4. Hypomagnesemia improved Magnesium 2 g IV piggyback given repeat was 1.7 5. Hyperlipidemia Restart aspirin and statin 6. Coronary artery disease status post PTCA Resume Effient and statin 7. History of hypertension Resume diuretic 8. GI DVT prophylaxis Physical exam General: [no distress], [appears at stated age] Derm: [warm], [dry] Head: [atraumatic], [normocephalic], [symmetric] Eyes: [EOMI], [no lid lag], [anicteric sclera] Mouth: [no lip lesion], [mucus membranes moist] Cardiovascular: [S1S2 reg], [no murmur], [positive posterior tibial pulse bilateral], Lungs: [CTA bilateral], [no rhonchi, no rales] , [no accessory muscle use] Abdominal: [soft], [ nontender to palpation], [no guarding], [no appreciable organomegaly] Ext: [no gross muscle atrophy], [no edema], [no contractures] Neuro: [ CN II-XI grossly intact], [no focal neuro deficits] Psych: [Alert], [oriented], [appropriate affect] Disposition: Home Activity as tolerated Diet diabetic Condition fair Follow-up with PCP within one week Follow-up with cardiology in 1-2 weeks Patient Condition at Discharge: Fair Plan - Discharge Summary Discharge Rx Participant: Yes New Discharge Prescriptions: New Famotidine [Pepcid] 20 mg PO DAILY #30 tab Continue Losartan [Cozaar] 50 mg PO BID hydroCHLOROthiazide [Hydrodiuril] 50 mg PO DAILY DULoxetine HCL [Cymbalta] 20 mg PO DAILY Aspirin 81 mg PO DAILY #90 tab Nitroglycerin Sl Tabs [Nitrostat] 0.4 mg SUBLINGUAL Q5M PRN #25 tab PRN Reason: Chest Pain Metformin Er 750mg 750 mg PO DAILY Metoprolol Tartrate [Lopressor] 12.5 - 25 mg PO DIRECTED Atorvastatin [Lipitor] 80 mg PO HS #90 tab Prasugrel [Effient] 10 mg PO DAILY #30 tab Liraglutide [Victoza 3-Louis] 1.2 mg SQ DAILY@1430 Discharge Medication List DULoxetine HCL [Cymbalta] 20 mg PO DAILY 10/28/21 [History] Losartan [Cozaar] 50 mg PO BID 10/28/21 [History] hydroCHLOROthiazide [Hydrodiuril] 50 mg PO DAILY 10/28/21 [History] Aspirin 81 mg PO DAILY #90 tab 10/31/21 [Rx] Atorvastatin [Lipitor] 80 mg PO HS #90 tab 10/31/21 [Rx] Nitroglycerin Sl Tabs [Nitrostat] 0.4 mg SUBLINGUAL Q5M PRN #25 tab 10/31/21 [Rx] Prasugrel [Effient] 10 mg PO DAILY #30 tab 10/31/21 [Rx] Liraglutide [Victoza 3-Louis] 1.2 mg SQ DAILY@1430 12/27/21 [History] Metformin Er 750mg 750 mg PO DAILY 12/27/21 [History] Metoprolol Tartrate [Lopressor] 12.5 - 25 mg PO DIRECTED 12/27/21 [History] Famotidine [Pepcid] 20 mg PO DAILY #30 tab 12/28/21 [Rx] Follow up Appointment(s)/Referral(s): Arthur Seo MD [STAFF PHYSICIAN] - 01/08/22 10:30 am Griseldatarenetta,Physician [Primary Care Provider] - 1-2 days Discharge Disposition: HOME SELF-CARE
[2021-12-28 14:56] VITALS: BMI 33.5
== END 2021-12-28 15:00 | disposition home or self-care (01) ==
LOC: EC 10:26 → 6NMEDSUR 13:53
PROVIDERS: ADMIT Internal Medicine; ATTEND Internal Medicine
DX: R07.89 Other chest pain (principal); I25.119 Atherosclerotic heart disease of native coronary artery with unspecified angina pectoris; E11.65 Type 2 diabetes mellitus with hyperglycemia; I10 Essential (primary) hypertension; E78.5 Hyperlipidemia, unspecified; M06.9 Rheumatoid arthritis, unspecified; E83.42 Hypomagnesemia; R74.8 Abnormal levels of other serum enzymes; R74.01 Elevation of levels of liver transaminase levels; F32.A Depression, unspecified; F41.9 Anxiety disorder, unspecified; I49.3 Ventricular premature depolarization; Z79.899 Other long term (current) drug therapy; Z95.5 Presence of coronary angioplasty implant and graft; Z79.82 Long term (current) use of aspirin; Z79.02 Long term (current) use of antithrombotics/antiplatelets; Z80.1 Family history of malignant neoplasm of trachea, bronchus and lung; Z80.9 Family history of malignant neoplasm, unspecified; Z81.8 Family history of other mental and behavioral disorders; Z32.02 Encounter for pregnancy test, result negative
CPT/HCPCS: 96366; 96372 ×2; 96365; 99285; 36415; 93005; 93017; 85379; 80061; 80053 ×2; 84443; 83735 ×2; 84484; 85025 ×2; 85610; 85730; 81025; 83036; 71046; 76700; 78452; G0378 ×2; A9500; J3475; J1644 ×2

== ENCOUNTER 2023-05-30 02:39 | Observation (INO) | payer BC ==
[2023-05-30] MEDS: HYDROmorphone 1 MG/ML 1 ML SYRINGE IVP PRN (03:13)
--- NOTE | 2023-05-30 03:16 | ED ---
General Adult HPI - General Chief complaint: Back Pain/Injury Stated complaint: BACKPAIN Time Seen by Provider: 05/30/23 02:59 Source: patient, EMS, RN notes reviewed, old records reviewed Mode of arrival: EMS Limitations: no limitations - History of Present Illness Initial comments: Patient is a 47-year-old female who presents emergency department complaining of intractable back pain. Sometime around 16 May, patient began experiencing lower back pain. Around this time, she was diagnosed with COVID and was having severe coughing. Is the only incident that she can describe is the possible onset of symptoms. Since then she has been dealing with intractable low back pain, left worse than right. Is having shooting pain down the left leg with some paresthesias of the left foot. Had an episode of possible urinary incontinence also yesterday. She did go to an outpatient MRI appointment and then presented to [facility] emergency department for further evaluation. MRI showed left paracentral L5-S1 intervertebral disc protrusion producing left lateral recess narrowing. Was transferred here for intractable back pain and further evaluation by orthopedics. Patient is currently resting comfortably after receiving Valium and Dilaudid prior to arrival. Denies any saddle paresthesias or anesthesias. Has had normal episodes of urination . Has no other acute complaints. - Related Data Home Medications Medication Instructions Recorded Confirmed DULoxetine HCL [Cymbalta] 20 mg PO DAILY 10/28/21 12/27/21 Losartan [Cozaar] 50 mg PO BID 10/28/21 12/27/21 hydroCHLOROthiazide [Hydrodiuril] 50 mg PO DAILY 10/28/21 12/27/21 Liraglutide [Victoza 3-Louis] 1.2 mg SQ DAILY@1430 12/27/21 12/27/21 Metformin Er 750mg 750 mg PO DAILY 12/27/21 12/27/21 Metoprolol Tartrate [Lopressor] 12.5 - 25 mg PO DIRECTED 12/27/21 12/27/21 Previous Rx's Medication Instructions Recorded Aspirin 81 mg PO DAILY #90 tab 10/31/21 Atorvastatin [Lipitor] 80 mg PO HS #90 tab 10/31/21 Nitroglycerin Sl Tabs [Nitrostat] 0.4 mg SUBLINGUAL Q5M PRN #25 tab 10/31/21 Prasugrel [Effient] 10 mg PO DAILY #30 tab 10/31/21 Famotidine [Pepcid] 20 mg PO DAILY #30 tab 12/28/21 Allergies Allergy/AdvReac Type Severity Reaction Status Date / Time No Known Allergies Allergy Verified 12/27/21 13:43 Review of Systems ROS Statement: Those systems with pertinent positive or pertinent negative responses have been documented in the HPI. Review of Systems: CONST: Denies fever EYES: Denies blurry vision ENT: Denies nasal congestion C/V: Denies Chest pain RESP: Denies shortness of breath GI: Denies abdominal pain : Denies dysuria SKIN: Denies rash. MSK: Endorses back pain NEURO: Denies headache ROS Other: All systems not noted in ROS Statement are negative. Past Medical History Past Medical History: Coronary Artery Disease (CAD), Diabetes Mellitus, Hypertension, Rheumatoid Arthritis (RA) Additional Past Medical History / Comment(s): RA History of Any Multi-Drug Resistant Organisms: None Reported Past Surgical History: Heart Catheterization With Stent Additional Past Surgical History / Comment(s): D&C Past Anesthesia/Blood Transfusion Reactions: No Reported Reaction Date of Last Stent Placement:: 10/28/21 Past Psychological History: No Psychological Hx Reported Smoking Status: Never smoker Past Alcohol Use History: None Reported Past Drug Use History: None Reported - Past Family History Mother Family Medical History: Cancer Additional Family Medical History / Comment(s): lung cancer - at age 39 Father Family Medical History: Cancer Additional Family Medical History / Comment(s): committed suicide 5 years ago General Exam - General Exam Comments Initial Comments: General: Appears in no acute distress. HEAD: Normal with no signs of head trauma. EYES: EOMI ENT: Hearing grossly intact, normal oropharynx. RESPIRATORY: Clear breath sounds bilaterally. No wheezes, rales, or rhonchi. C/V: Regular rate and rhythm. S1 and S2 auscultated,peripheral pulses 2+ and i ntact throughout ABD: Abd is soft, nontender, nondistended EXT: Normal range of motion, no obvious deformity. No midline lumbar spine tenderness to palpation however left-sided paraspinal muscle tenderness to palpation. No midline thoracic or cervical spine tenderness to palpation. SKIN: No rashes or lesions observed on exposed skin. NEURO: Alert and oriented x 4. Cranial nerves II-XII intact. No focal sensory or strength deficits. Pain with movement of the left leg. Limitations: no limitations Course Vital Signs 05/30/23 02:40 Temperature 98.0 F Pulse Rate 68 Respiratory 18 Rate Blood Pressure 114/91 O2 Sat by Pulse 96 Oximetry Medical Decision Making - Medical Decision Making Was pt. sent in by a medical professional or institution (, [employer], [employer], urgent care, hospital, or usp...) When possible be specific @ -No Did you speak to anyone other than the patient for history (EMS, parent, family, police, friend...)? What history was obtained from this source @ -Spoke with transferring physician, Dr. Banda from [facility] emergency department who provided additional information including the MRI report. Did you review nursing and triage notes (agree or disagree)? Why? @ -I reviewed and agree with nursing and triage notes Were old charts reviewed (outside hosp., previous admission, EMS record, old EKG, old radiological studies, urgent care reports/EKG's, usp records)? Report findings @ -Old charts reviewed Differential Diagnosis (chest pain, altered mental status, abdominal pain women, abdominal pain men, vaginal bleeding, weakness, fever, dyspnea, syncope, headache, dizziness, GI bleed, back pain, seizure, CVA, palpatations, mental health, musculoskeletal)? @ -Differential Back Pain: Strain, zoster, cauda equina syndrome, epidural abscess, vertebral osteomyelitis, discitis, fracture, subluxation, disc herniation, DJD, spinal stenosis, dissection, AAA, pancreatitis, peptic ulcer disease, pyelonephritis, kidney stone, this is not meant to be an all-inclusive list. EKG interpreted by me (3pts min.). @ -None done X-rays interpreted by me (1pt min.). @ -None done CT interpreted by me (1pt min.). @ -None done U/S interpreted by me (1pt. min.). @ -None done What testing was considered but not performed or refused? (CT, X-rays, U/S, labs)? Why? @ -None What meds were considered but not given or refused? Why? @ -None Did you discuss the management of the patient with other professionals (professionals i.e. , [employer], [employer], lab, RT, psych nurse, bilingual social worker, family lawyer, teacher, loan servicing officer, rn case manager)? Give summary @ -Discussed with Dr. Renteria who accepted the admission. Also discussed the case with on-call orthopedics Dr. Shell. He requested patient be admitted to medicine and consult the groups spine physician, Dr. Mark who can evaluate the patient in the morning. Was smoking cessation discussed for >3mins.? @ -No Was critical care preformed (if so, how long)? @ -No Were there social determinants of health that impacted care today? How? (Homelessness, low income, unemployed, alcoholism, drug addiction, transportation, low edu. Level, literacy, decrease access to med. care, detention, rehab)? @ -No Was there de-escalation of care discussed even if they declined (Discuss DNR or withdrawal of care, Hospice)? DNR status @ -No What co-morbidities impacted this encounter? (DM, HTN, Smoking, COPD, CAD, Cancer, CVA, ARF, Chemo, Hep., AIDS, mental health diagnosis, sleep apnea, morbid obesity)? @ -None Was patient admitted / discharged? Hospital course, mention meds given and route, prescriptions, significant lab abnormalities, going to OR and other pertinent info. @ -Patient presents with what appears to be lumbosacral disc herniation causing left-sided sciatica. MRI obtained at the outside emergency department showed no evidence of cauda equina syndrome. Formal read on that MRI report per documentation is "approximately a 9 x 6 mm left paracentral L5-S1 focal intervertebral disc protrusion producing left lateral recess narrowing." Patient is currently resting comfortably at this time. Plan is for admission for intractable back pain and evaluation by orthopedics. Basic labs were ordered. I will provide the patient with a dose of IV steroids. She was in agreement this plan. I spoke with the admitting physician, Dr. Renteria who accepted the admission. Also discussed the case with on-call orthopedics Dr. Shell. He requested pat ient be admitted to medicine and consult the groups spine physician, Dr. Mark who can evaluate the patient in the morning. MRI disc placed on the patient's chart documentation from outside emergency department. Undiagnosed new problem with uncertain prognosis? @ -No Drug Therapy requiring intensive monitoring for toxicity (Heparin, Nitro, Insulin, Cardizem)? @ -No Were any procedures done? @ -No Diagnosis/symptom? @ -Lumbosacral disc herniation, left-sided sciatica, Intractable lumbar pain Acute, or Chronic, or Acute on Chronic? @ -Acute Uncomplicated (without systemic symptoms) or Complicated (systemic symptoms)? @ -Complicated Side effects of treatment? @ -No Exacerbation, Progression, or Severe Exacerbation? @ -No Poses a threat to life or bodily function? How? (Chest pain, USA, CA, pneumonia, PE, COPD, DKA, ARF, appy, cholecystitis, CVA, Diverticulitis, Homicidal, Suicidal, threat to staff... and all critical care pts) @ -Possibly, yes - Lab Data Result diagrams: 05/30/23 03:28 Disposition Clinical Impression: Lumbosacral disc herniation, Sciatica, Intractable low back pain Disposition: ADMITTED IP TO THIS [facility] Condition: Stable Time of Disposition: 03:15
[2023-05-30] MEDS: SODIUM CHLORIDE 0.9% 1,000 ML IV STA (03:17)
[2023-05-30] MEDS: DEXAMETHASONE SOD PHOSPHATE 10 MG/ML 1 ML VIAL IVP STA (03:19)
[2023-05-30] MEDS ORDERED: NALOXONE 0.4 MG/ML 1 ML VIAL IV PRN (03:24)
[2023-05-30] MEDS ORDERED: ONDANSETRON 4 MG/2 ML VIAL IVP PRN (03:24)
[2023-05-30 03:44] LABS: Basophils % (A) 0 %; Eosinophils # (A) 0.1 k/uL (0-0.7); Eosinophils % (A) 1 %; HCT 44.3 % (34.0-46.0); HGB 14.9 gm/dL (11.4-16.0); Lymphocytes # (A) 1.6 k/uL (1.0-4.8); Lymphocytes % (A) 15 %; MCHC 33.7 g/dL (31.0-37.0); MCV 86.1 fL (80.0-100.0); Mean Platelet Volume 7.8; Monocytes # (A) 0.3 k/uL (0-1.0); Monocytes % (A) 3 %; Neutrophils # (A) 8.9 k/uL (1.3-7.7); Neutrophils % (A) 81 %; Platelet Count 325 k/uL (150-450); RBC 5.15 m/uL (3.80-5.40); RDW 13.1 % (11.5-15.5)
[2023-05-30 04:17] LABS: African American GFR (CKD) >90 (>60 ml/min/1.73 sqM); Anion Gap 5 mmol/L; Blood Urea Nitrogen 24 mg/dL (7-17); Calcium 9.4 mg/dL (8.4-10.2); Carbon Dioxide 29 mmol/L (22-30); Chloride 100 mmol/L (98-107); Glucose 288 mg/dL (74-99); Non-African American GFR(CKD) >90 (>60 ml/min/1.73 sqM); Sodium 134 mmol/L (137-145)
[2023-05-30] MEDS ORDERED: DEXTROSE 50% SYRINGE 50 ML IVP PRN ×2 (06:00)
[2023-05-30 06:19] LABS: Glucose,Whole Blood 318 mg/dL (70-110)
--- NOTE | 2023-05-30 06:22 | P.HPIM ---
History of Present Illness H&P Date: 05/30/23 Chief Complaint: Severe back pain 47-year-old female with coronary artery disease status post stents, hypertension diabetes mellitus Patient coming in with complaints of intractable low back pain she explains that about mid April she was diagnosed with COVID she had severe coughing symptoms she believes precipitated worsening of her lower back pain denies any injuries or falls since then she has been struggling with worsening pain since the end of April which kept getting worse and eventually she went to an urgent care on last Saturday about 5 days ago she was given some Toradol shots a prescription for prednisone however that only helped with the pain for a day or 2 and then pain started getting worse mainly on the left side with pain radiating down her left leg with some numbness she cannot find any comfortable position pain shoots down her left leg whenever she tries to move. Yesterday she was trying to get to the bathroom which is a big struggle for her and she had an episode of urinary incontinence. She reports having some imaging done as an outpatient including CAT scan and MRI which showed left paracentral L5-S1 intervertebral disc protrusion producing left lateral recess narrowing. She presented to [facility] emergency department from where she was transferred to our facility for further care Otherwise she denies any fevers or chills denies any saddle numbness or tingling denies any falls denies any injuries. Currently she looks comfortable pain is controlled with IV pain medications Patient denies any tobacco smoking illicit drugs or heavy alcohol review of systems Pertinent positives as noted in HPI. All other systems were reviewed and are negative on exam Constitutional: No acute distress, conversant, pleasant Eyes: Anicteric sclerae, moist conjunctiva, Pupils equal round reactive to light ENMT: NC/AT Oropharynx clear, no erythema, or exudates Neck: Supple, no masses, or JVD No carotid bruits No thyromegaly Lungs: Clear to auscultation Clear to percussion Normal respiratory effort, no accessory muscle use Cardiovascular: Heart regular in rate and rhythm, No murmurs, gallops, or rubs No peripheral edema Abdominal: Soft Nontender, no guarding, rebound or rigidity Abdomen moving with respiration Normoactive bowel sounds Extremities: No digital cyanosis No clubbing Pedal pulses intact and symmetrical Radial pulses intact and symmetrical No calf tenderness Psychiatric: Alert and oriented to person, place and time Appropriate affect fair judgement Neuro Muscles Strength 5/5 in bilateral upper extremities, patient moving h er bilateral lower extremities spontaneously she asked to avoid moving her legs so not precipitate pain. No point tenderness upon examination of the lower back no skin changes no open wounds Sensation to light touch grossly present throughout Cranial nerves II-XII grossly intact Past Medical History Past Medical History: Coronary Artery Disease (CAD), Diabetes Mellitus, Hypertension, Rheumatoid Arthritis (RA) Additional Past Medical History / Comment(s): RA History of Any Multi-Drug Resistant Organisms: None Reported Past Surgical History: Heart Catheterization With Stent Additional Past Surgical History / Comment(s): D&C Past Anesthesia/Blood Transfusion Reactions: No Reported Reaction Date of Last Stent Placement:: 10/28/21 Past Psychological History: No Psychological Hx Reported Smoking Status: Never smoker Past Alcohol Use History: None Reported Past Drug Use History: None Reported - Past Family History Mother Family Medical History: Cancer Additional Family Medical History / Comment(s): lung cancer - at age 39 Father Family Medical History: Cancer Additional Family Medical History / Comment(s): committed suicide 5 years ago Medications and Allergies Home Medications Medication Instructions Recorded Confirmed Type DULoxetine HCL [Cymbalta] 20 mg PO DAILY 10/28/21 12/27/21 History Losartan [Cozaar] 50 mg PO BID 10/28/21 12/27/21 History hydroCHLOROthiazide [Hydrodiuril] 50 mg PO DAILY 10/28/21 12/27/21 History Aspirin 81 mg PO DAILY #90 tab 10/31/21 12/27/21 Rx Atorvastatin [Lipitor] 80 mg PO HS #90 tab 10/31/21 12/27/21 Rx Nitroglycerin Sl Tabs [Nitrostat] 0.4 mg SUBLINGUAL Q5M PRN #25 tab 10/31/21 12/27/21 Rx Prasugrel [Effient] 10 mg PO DAILY #30 tab 10/31/21 12/27/21 Rx Liraglutide [Victoza 3-Louis] 1.2 mg SQ DAILY@1430 12/27/21 12/27/21 History Metformin Er 750mg 750 mg PO DAILY 12/27/21 12/27/21 History Metoprolol Tartrate [Lopressor] 12.5 - 25 mg PO DIRECTED 12/27/21 12/27/21 History Famotidine [Pepcid] 20 mg PO DAILY #30 tab 12/28/21 Rx Allergies Allergy/AdvReac Type Severity Reaction Status Date / Time No Known Allergies Allergy Verified 12/27/21 13:43 Physical Exam Vitals: Vital Signs Temp Pulse Resp BP Pulse Ox 05/30/23 02:40 98.0 F 68 18 114/91 96 Intake and Output 05/29/23 05/29/23 05/30/23 14:59 22:59 06:59 Other: Weight 95.708 kg Results CBC & Chem 7: 05/30/23 03:28 05/30/23 03:28 Assessment and Plan Assessment: 47-year-old female with coronary artery disease status post stents, diabetes mellitus, hypertension She is coming in for intractable low back pain had some imaging done as an outpatient MRI showed left paracentral L5-S1 intervertebral disc protrusion producing left lateral recess narrowing she was transferred to our facility for orthopedic evaluation I discussed the case with ED doctor and accepted the admission for pain control and orthopedic spine eval with anticipated length of stay less than 2 midnights Intractable low back pain MRI of the lower back done at outside facility reported above Pain control with Dilaudid 1 mg IV push every 4 hours as needed Toradol 50 mg IV push every 6 hours for pain IV fluid hydration normal saline 75 cc/h Orthospine consultation Verify home medications Chronic conditions Diabetes mellitus insulin sliding scale Coronary artery disease status post stents continue with aspirin and statin verify the rest of her home meds Hypertension currently controlled verify home meds Blood work showed white count of 11 afebrile no identifiable focus of infection Hemoglobin 14.9 unremarkable Sodium 134 potassium 4 BUN 24 creatinine 0.5 unremarkable renal function Full code DVT prophylaxis mechanical
[2023-05-30] MEDS: INSULIN ASPART (NovoLOG) 100 UNIT/ML VIAL SQ SCH (06:31)
[2023-05-30] MEDS: ASPIRIN 81 MG PO SCH (08:45)
[2023-05-30] MEDS: KETOROLAC 15 MG/ML 1 ML VIAL IVP PRN (08:49)
[2023-05-30] MEDS ORDERED: HYDROcodone/APAP 5-325MG 1 EACH TAB PO PRN (10:34)
--- NOTE | 2023-05-30 10:34 | P.CNOR ---
History of Present Illness - [facility] Consult date: 05/30/23 Consult reason: low back pain, other (Left lower extremity radiculopathy) History of present illness: Patient is a very pleasant 47-year-old female who has been having severe pain at her left lower extremity for the past 2 weeks. She says she had a bout of COVID in the middle of April and was coughing a lot but her COVID has resolved. However she has had severe pain since May 16 over the past 2 weeks at her lower back and left lower extremity. She says the pain is excruciating and goes into her gluteus in the back of her thigh and the back of her calf. She has had great difficulty with this. She initially presented to her primary care physician and started physical therapy, she has been to urgent care and was given a small dose of pain medication and steroid. She was not having improvement and presented to the emergency room where she had more pain medication and was ordered and an MRI but she was unable to get around after the MRI and presented back to the emergency room and was transferred here for further evaluation and treatment. She says her pain is somewhat better today than it was yesterday and that she is able to lay down on her side and find some comfort. She still has great difficulty with trying to move around. She does not feel specifically weak in her left lower extremity. She had 1 episode of urinary incontinence but has been able to void freely. She is not having a bowel incontinence. She denies any chest pain or shortness of breath. Patient does have significant history of diabetes and coronary artery disease and had a stent placed at 46 years old. She also has a history of rheumatoid arthritis and other medical issues. The patient is normally a community ambulator without any assistance. She has had several bouts of low back pain but never to this degree never of this intensity. She has never had leg pain like this before. She says she normally works 50 or 60 hours a week at [employer]. Review of Systems As stated per HPI. Denies any chest pain or shortness of breath. She feels her COVID has resolved. She does not feel specifically weak at her left lower extremity but is having great difficulty because of the pain at her left leg. She has never had epidural steroid injections before. Past Medical History Past Medical History: Coronary Artery Disease (CAD), Diabetes Mellitus, Hypertension, Rheumatoid Arthritis (RA) Additional Past Medical History / Comment(s): Recent COVID in the middle of April. Resolved. RA History of Any Multi-Drug Resistant Organisms: None Reported Past Surgical History: Heart Catheterization With Stent Additional Past Surgical History / Comment(s): D&C Past Anesthesia/Blood Transfusion Reactions: No Reported Reaction Date of Last Stent Placement:: 10/28/21 Past Psychological History: No Psychological Hx Reported Smoking Status: Never smoker Past Alcohol Use History: None Reported Past Drug Use History: None Reported - Past Family History Mother Family Medical History: Cancer Additional Family Medical History / Comment(s): lung cancer - at age 39 Father Family Medical History: Cancer Additional Family Medical History / Comment(s): committed suicide 5 years ago Medications and Allergies Home Medications Medication Instructions Recorded Confirmed Type DULoxetine HCL [Cymbalta] 20 mg PO DAILY 10/28/21 05/30/23 History Losartan [Cozaar] 50 mg PO BID 10/28/21 05/30/23 History hydroCHLOROthiazide [Hydrodiuril] 50 mg PO DAILY 10/28/21 05/30/23 History Aspirin 81 mg PO DAILY #90 tab 10/31/21 05/30/23 Rx Atorvastatin [Lipitor] 80 mg PO HS #90 tab 10/31/21 05/30/23 Rx Prasugrel [Effient] 10 mg PO DAILY #30 tab 10/31/21 05/30/23 Rx Liraglutide [Victoza 3-Louis] 1.8 mg SQ DAILY@1430 12/27/21 05/30/23 History Cyclobenzaprine [Flexeril] 5 - 10 mg PO TID PRN 05/30/23 05/30/23 History HYDROcodone/APAP 5-325MG [Manito 1 tab PO Q8H PRN 05/30/23 05/30/23 History 5-325] Insulin Glargine,Hum.rec.anlog 12 units SQ DAILY@1430 05/30/23 05/30/23 History [Lantus Solostar Pen] Metoprolol Tartrate [Lopressor] 25 mg PO BID 05/30/23 05/30/23 History Nitroglycerin Sl Tabs [Nitrostat] 0.4 mg SL Q5M PRN 05/30/23 05/30/23 History Pioglitazone [Actos] 30 mg PO DAILY 05/30/23 05/30/23 History Ubidecarenone [Coenzyme Q10] 100 mg PO DAILY 05/30/23 05/30/23 History [facility] Immune Support 2 tab PO DAILY 05/30/23 05/30/23 History diazePAM [Valium] 5 mg PO Q8H PRN 05/30/23 05/30/23 History guaiFENesin-Coden 100-10MG/5ML 5 ml PO Q6H PRN 05/30/23 05/30/23 History [Robitussin AC] metFORMIN HCL ER [Glucophage XR] 500 mg PO BID 05/30/23 05/30/23 History methylPREDNISolone Dose Pack See Taper PO DAILY 05/30/23 05/30/23 History [Medrol Dose Pack] Allergies Allergy/AdvReac Type Severity Reaction Status Date / Time No Known Allergies Allergy Verified 05/30/23 07:07 Physical Examination Osteopathic Statement: *. No significant issues noted on an osteopathic structu ral exam other than those noted in the History and Physical/Consult. - L Spine: dermatomal strength & reflexes bilateral Strength: hip flexion: 5/5 (Her back is clear. There is no skin changes. She is nontender at her back. At her lower extremities she has a positive straight leg raise on the left. She has sustained 5 out of 5 strength with dorsiflexion plantarflexion EHL. She is no pain with internal and external rotation of her hips.) Strength: hip extension: 5/5 (Other extremities have full active and passive range of motion with 5/5 strength. Calves and thighs soft nontender.) Results MRI results are downloaded into synapse from [facility] yesterday It shows significant disc degeneration at L5-S1 with some Modic endplate changes. There is a large left paracentral disc herniation causing severe left foraminal stenosis - Labs Labs: Abnormal Lab Results - Last 24 Hours (Table) 05/30/23 05/30/23 05/30/23 Range/Units 03:28 03:28 06:17 WBC 11.0 H (3.8-10.6) k/uL Neutrophils # 8.9 H (1.3-7.7) k/uL Sodium 134 L (137-145) mmol/L BUN 24 H (7-17) mg/dL Glucose 288 H (74-99) mg/dL POC Glucose (mg/dL) 318 H (70-110) mg/dL H & H 05/30/23 Range/Units 03:28 Hgb 14.9 (11.4-16.0) gm/dL Hct 44.3 (34.0-46.0) % Result Diagrams: 05/30/23 03:28 05/30/23 03:28 - Diagnostic results Lumbar MRI with/without contrast: report reviewed, image reviewed (MRI from [facility] done yesterday is downloaded and synapse. The report is reviewed as well. There is a large disc nation at L5-S1 causing severe left foraminal stenosis. There is no evidence of cauda equina. She has some degenerative changes at L5-S1 with Modic changes) Assessment and Plan Assessment: Acute new disc herniation L5-S1 Severe left lower extremity radiculopathy without obvious weakness Degenerative disc disease L5-S1 Multiple medical issues including coronary artery disease status post stenting a year ago, Diabetes controlled with insulin Rheumatoid arthritis Plan: Acute new disc herniation L5-S1 Severe left lower extremity radiculopathy without obvious weakness Degenerative disc disease L5-S1 Multiple medical issues including coronary artery disease status post stenting a year ago, Diabetes controlled with insulin Rheumatoid arthritis The patient has a new disc herniation at L5-S1 which correlates well with her ac [place] left lower extremity radiculopathy. She has been having severe distress with this. She is unable to ambulate and mobilize on her own because of her disc nation and lower extremity radiculopathy. I have been able to review the images and the report from the MRI. The patient has had some early treatment with physical therapy and medication. She has not had great relief but she feels she is starting to make some progress from yesterday to today with her increased medication. I discussed various treatment options ranging from conservative to interventional pain management to surgery. We will go ahead and increase the steroid and pain medication regimen to see if that gives her some further relief. The patient would like to try to continue with conservative treatment with interventional pain management and see if that gives her some relief as well. I think that she could do well with epidural steroid injection at L5-S1. I have consulted interventional pain management for this. Hopefully she can get this relatively soon. If the patient is making progress with this and that she is ambulatory with controlled pain then it can be okay for her to discharge home. However if she i s not making significant improvement I think that she is a good candidate for laminectomy decompression and discectomy at L5-S1. I think this could offer her significant benefit in her lower extremity I explained this to her at length. We could consider pursuing this in the next several days during this hospitalization if she is not having relief with the epidural steroid injection. I discussed the risk complications alternatives and benefits of surgery with her and she understands. She would like to proceed with epidural steroid injection with interventional pain management as soon as possible. Time with Patient: Greater than 30
[2023-05-30] MEDS: methylPREDNISolone SOD SUCCI 125 MG/2 ML VIAL IV SCH (10:44)
--- NOTE | 2023-05-30 11:42 | P.PAINPG ---
Objective - Vital Signs Vital signs: Vital Signs Temp 97.7 F 05/30/23 07:00 Pulse 70 05/30/23 07:00 Resp 18 05/30/23 07:00 BP 118/77 05/30/23 07:00 Pulse Ox 95 05/30/23 07:00 FiO2 Intake & Output 05/29/23 05/30/23 05/30/23 18:59 06:59 18:59 Intake Total 118 Balance 118 Weight 95.708 kg Intake: Oral 118 Other: # Voids 1 - Labs CBC & Chem 7: 05/30/23 03:28 05/30/23 03:28 Labs: Abnormal Lab Results - Last 24 Hours (Table) 05/30/23 05/30/23 05/30/23 Range/Units 03:28 03:28 06:17 WBC 11.0 H (3.8-10.6) k/uL Neutrophils # 8.9 H (1.3-7.7) k/uL Sodium 134 L (137-145) mmol/L BUN 24 H (7-17) mg/dL Glucose 288 H (74-99) mg/dL POC Glucose (mg/dL) 318 H (70-110) mg/dL PQRS Measure Charge Sheet Comment: HISTORY OF PRESENT ILLNESS: A 47 yr old female as a referral from Dr Mark presents today w severe LBP secondary to DDD, spondylosis and facet arthropathy without myelopathy for evaluation. Pt states pain level is provoked at 9/10 in intensity, constant, localized in the lower lumbar spine where it meets the tailbone, predominantly axial, stabbing in character w occasional shooting pain towards the BL feet. Pain is provoked by bending, lifting, twisting, weight bearing activity. Pain is alleviated by medications (Montrose 10/325mg q6h, Dilaudid 1mg IVP q3h prn), repositioning and rest. PMH: OA, CAD, NIDDM II, HTN, RA PSH: Heart Catheterization With Stent (2021), D&C SH: Never smoker, No ETOH abuse, No illicit drug use FH: MO- Lung CA/ age 41. Fa- CA/ from suicide in 2019 All: See list Meds: See list REVIEW OF ORGAN SYSTEMS: CONSTITUTIONAL: No fevers or chills. No recent weight loss. NEUROLOGICAL: + numbness and tingling along the distal extremities. No seizure disorders or headaches. MUSCULOSKELETAL: + pain PSYCHIATRIC: Denies current depression or suicidal thoughts. Physical Examinations : Constitutional : Cooperative , not in acute distress . Neurologic : Cranial nerve II to XII intact. No focal neurological deficits. Psychiatric : alert & oriented x 3. Matching mood & appropriate affect. Judgment & insight intact. Musculoskeletal : Cervical Spine Motor strength in the deltoid and biceps: Normal right side. Normal Left side Motor strength biceps and the wrist extensors: Normal right side . Normal left side Motor strength in the triceps muscle: Normal right side. Normal left side Deep tendon reflexes: Normal at the biceps. Normal at Brachioradialis. Normal at triceps Vertebral body tenderness to deep palpation over Cervical facet loading test: positive bilaterally Spurling test: positive bilaterally Neck distraction test: positive bilaterally Em sign: positive bilaterally Lumbar spine Motor strength lower extremities ,thigh and legs 5/5 Right side , 5/5 Left side Deep tendon reflexes : Normal Knee Jerk. Normal Ankle Jerk Vertebral body tenderness over [place] Test positive Lumbar facet Loading Test: positive Right / positive Left Range of motion of the lumbar spine Fl exion 30 degrees, extension 10 degrees Straight Leg Raise test: Left/ Right positive at degree Reese test: positive right / positive left. Severe tenderness over the Sacroiliac joint on the Right / Left sides Gaenslen test: positive bilaterally Seated flexion test: positive bi laterally. Sacral spine : Severe tenderness over the Sacroiliac joint: right side / left side Range of motion: Flexion of the lumbar spine <60 degrees Range of motion: Extension of the lumbar spine <20 degrees Gaenslen's Test positive Reese test: positive right side / left side Thigh Thrust Test Sacral Thrust Test Imaging: MRI non contrast of the lumbar spine from 05/29/23 from [facility] on file Assessment/ Plan : L5-S1 disc herniation Would benefit from an PAULA L5-S1. Currently pt is taking ASA and pain is managed with narcotic medications. Will manage on an outpatient basis. Short course of Montrose 10/325mg #18 NR upon discharge. Use, side effects, adverse reactions and safe storage discussed. Will follow up in the pain clinic. All questions answered. I have spent greater than 30 minutes on patient care today. Dr Alfaro was available by phone for the evaluation of this patient. The time was used to review the medical records including relevant urine studies and Prescription history (MAPs), review of the available imaging, evaluation and examination of the patient, coordination of care with the medical staff and if applicable referring physicians, as well as creation of the medical record - Pain Location Lower Back Non-Pharmacological Interventions: Darkened Room Pharmacological Interventions: Discuss Pain Med Options PQRS Narrative: Blood Pressure [Left Arm] 118/77 Blood Pressure 106/74 Pain Intensity [Lower Back] 0 Pain Intensity 8 Pain Scale Used Numeric (1 - 10) Scale Used Numeric (1 - 10) Home Medications: Ambulatory Orders DULoxetine HCL [Cymbalta] 20 mg PO DAILY 10/28/21 Losartan [Cozaar] 50 mg PO BID 10/28/21 hydroCHLOROthiazide [Hydrodiuril] 50 mg PO DAILY 10/28/21 Aspirin 81 mg PO DAILY #90 tab 10/31/21 Atorvastatin [Lipitor] 80 mg PO HS #90 tab 10/31/21 Prasugrel [Effient] 10 mg PO DAILY #30 tab 10/31/21 Liraglutide [Victoza 3-Louis] 1.8 mg SQ DAILY@1430 12/27/21 Cyclobenzaprine [Flexeril] 5 - 10 mg PO TID PRN 05/30/23 HYDROcodone/APAP 5-325MG [Montrose 5-325] 1 tab PO Q8H PRN 05/30/23 Insulin Glargine,Hum.rec.anlog [Lantus Solostar Pen] 12 units SQ DAILY@1430 05/30/23 Metoprolol Tartrate [Lopressor] 25 mg PO BID 05/30/23 Nitroglycerin Sl Tabs [Nitrostat] 0.4 mg SL Q5M PRN 05/30/23 Pioglitazone [Actos] 30 mg PO DAILY 05/30/23 Ubidecarenone [Coenzyme Q10] 100 mg PO DAILY 05/30/23 [facility] Immune Support 2 tab PO DAILY 05/30/23 diazePAM [Valium] 5 mg PO Q8H PRN 05/30/23 guaiFENesin-Coden 100-10MG/5ML [Robitussin AC] 5 ml PO Q6H PRN 05/30/23 metFORMIN HCL ER [Glucophage XR] 500 mg PO BID 05/30/23 methylPREDNISolone Dose Pack [Medrol Dose Pack] See Taper PO DAILY 05/30/23 Controlled Substance Measures - Controlled Substance Measures Is patient prescribed a controlled substance at discharge?: Yes When asked, does pt state using other controlled substances?: Yes If prescribed controlled substance>3 days was MAPS reviewed?: Prescribed <3 Days
[2023-05-30 12:27] LABS: Glucose,Whole Blood 430 mg/dL (70-110)
[2023-05-30 14:37] VITALS: RESP 16
[2023-05-30] MEDS: tiZANidine 4 MG TAB PO PRN (16:03)
[2023-05-30 17:42] LABS: Glucose,Whole Blood 479 mg/dL (70-110)
--- NOTE | 2023-05-30 18:04 | P.PN ---
Progress Note - Text Progress Note Date: 05/30/23 (delayed charting seen at 0915) Patient initially seen by my partner after midnight. H&P performed. Reviewed patient's charting. Patient seen and examined at bedside. She states her home Ada, Flexeril, and Valium were not able to control her pain. We discussed that we should attempt to control her pain with oral medications. She is willing to try Ada 10 mg and we will try Zanaflex. She continues to have pain shooting down into her left leg. Agree with remainder of assessment and plan done by my partner.
[2023-05-30] MEDS: INSULIN DETEMIR (LEVEMIR) 100 UNIT/ML SYR SQ SCH (18:34)
[2023-05-30 20:21] LABS: Glucose,Whole Blood 482 mg/dL (70-110)
[2023-05-30] MEDS: LOSARTAN 50 MG TAB PO SCH (21:21)
[2023-05-30] MEDS: METOPROLOL TARTRATE 25 MG TAB PO SCH (21:21)
[2023-05-30] MEDS: ATORVASTATIN 80 MG TAB PO SCH (21:21)
[2023-05-31 06:12] LABS: Glucose,Whole Blood 258 mg/dL (70-110)
[2023-05-31] MEDS: INSULIN ASPART (NovoLOG) 100 UNIT/ML VIAL SQ SCH (09:08)
[2023-05-31] MEDS: DULoxetine HCL 20 MG CAPSULE.DR PO SCH (09:09)
--- NOTE | 2023-05-31 09:21 | P.PN ---
Progress Note - Text Progress Note Date: 05/31/23 Orthopedic spine: History of present illness: Patient is a very pleasant 47-year-old female who is seen and examined at bedside for follow-up evaluation of her lumbar spine and left lower extremity pain. She was seen and examined by pain management yesterday. She has had some debate whether to proceed forward with an injection. She states after further discussion with her family last night, she may plan to proceed forward with an injection with pain management. Nursing states aspirin must be held for 5 days so patient may plan for an injection in the outpatient setting next week. Patient states she would like to try to work through conservative treatment options first and if she were to fail conservative treatment she may plan to proceed forward with surgical intervention at L5-S1 where she has a known herniated nucleus pulposus with severe left foraminal stenosis. She states her left lower extremity leg pain is better controlled while at rest. She has not been performing much active mobility. She is not having any difficulty with urination and is urinating freely. Patient is being seen by medicine for her multiple other medical diagnoses including diabetes, rheumatoid arthritis, hypertension, and history of coronary artery disease with cardiac stent placement at the age of [id number] years old. Physical exam: Patient is awake, alert, and oriented 3 Vital signs stable Good chest excursion with deep inspiration and expiration Examination of lumbar spine reveals skin is intact with no abrasions, lacerations, or bruises; no erythema, purulence or signs of infection No significant pain with palpation along the midline of the lower lumbar spine. Dorsiflexion, plantarflexion, and extensor hallucis longus positive sustained bilaterally No signs or symptoms of DVT; no calf pain No pain with internal and external rotation of the hips bilaterally Neurovascularly intact Pertinent studies: MRI of the lumbar spine taken at an outside facility: L5-S1 severe degenerative disc disease with Modic endplate change and large left paracentral disc herniation resulting in severe left foraminal stenosis Assessment: Low back pain Debilitating left lower extremity radiculopathy L5-S1 herniated nucleus pulposus L5-S1 degenerative disc disease L5-S1 severe left foraminal stenosis Diabetes mellitus Hypertension Coronary artery disease Rheumatoid arthritis History of cardiac stent placement Plan: 1. Patient does experience low back pain with severe left lower extremity radiculopathy. Currently, she would like to continue working through conservative treatment options. She was seen and examined by pain management who may plan to proceed forward with an injection. She states after further discussion with her family she feels she would like to proceed forward with an injection when cleared. Patient is currently on aspirin and must be off this medication for 5 days. We did discuss she is a candidate for an L5-S1 lami nectomy and decompression with discectomy if she were to fail conservative treatment options. Currently, we will plan to have her follow-up in outpatient setting for further evaluation following injections with pain management. Patient may follow-up with Wilbert Hines PA-C or Dr. González Mark at [facility] in 2-3 weeks following discharge. If she is failing conservative treatment at that time, we will discuss proceeding forward with surgical intervention. Patient is cleared for discharge from orthopedic spine standpoint. 2. Patient will continue to be seen and examined by medicine and pain management.
[2023-05-31 09:32] VITALS: BP 106/69; PULSE 65; TEMP 98.1
[2023-05-31 09:52] LABS: BUN/Creat Ratio 38.62 Ratio (12.00-20.00); Blood Urea Nitrogen 30.9 mg/dL (9.0-27.0); Calcium 9.7 mg/dL (8.7-10.3); Carbon Dioxide 23.1 mmol/L (21.6-31.8); Chloride 97 mmol/L (96-109); Glucose 288 mg/dL (70-110); Potassium 4.2 mmol/L (3.5-5.5); Sodium 136 mmol/L (135-145)
[2023-05-31 11:15] LABS: Basophils # (A) 0.03 X 10*3/uL (0.00-0.10); Basophils % (A) 0.2 %; Eosinophils # (A) 0 X 10*3/uL (0.04-0.35); Eosinophils % (A) 0 %; HCT 44.1 % (37.2-46.3); HGB 14.6 g/dL (12.0-15.0); Lymphocytes % (A) 5.8 %; MCH 28.9 pg (27.0-32.0); MCHC 33.1 g/dL (32.0-37.0); MCV 87.2 FL (80.0-97.0); Mean Platelet Volume 10.9 FL (9.5-12.2); Monocytes # (A) 0.39 X 10*3/uL (0.20-1.00); Monocytes % (A) 2.5 %; NRBC Per 100 WBC 0 X 10*3/uL (0.00-0.01); Neutrophils # (A) 14.08 X 10*3/uL (1.80-7.70); Neutrophils % (A) 91.1 %; Platelet Count 337 X 10*3/uL (140-440); RBC 5.06 X 10*6/uL (4.10-5.20); RDW 12.9 % (11.5-14.5); WBC 15.46 X 10*3/uL (4.50-10.00)
--- NOTE | 2023-05-31 12:23 | P.DS ---
Providers Date of admission: 05/30/23 03:26 Expected date of discharge: 05/31/23 Attending physician: Ana Renteria MD Consults: 05/30/23 03:23 Consult Physician Routine Consulting Provider: Shabnam Mark Consult Reason/Comments: lumbosacral disc herniation, acute sciatica Do you want consulting provider notified?: Yes Primary care physician: Physician Nonstaff Hospital Course: Discharge Diagnosis: L5 -S1 disc herniation with left lower extremity radiculopathy Intractable pain Diabetes mellitus type 2 insulin requiring Coronary artery disease Hypertension Hospital Course: Patient is a 47-year-old female with a history of coronary artery disease status post stenting, hypertension, and diabetes mellitus who presented to the emergency department as a transfer from an outside facility due to back pain with radiation down her left leg. MRI was completed at [facility] which shows significant disc generation at L5 to S1 with paracentral disc herniation causing severe left foraminal stenosis. She was transferred to our facility. She was started on steroids. Orthopedic was consulted and recommended injection s with possible surgical evaluation. She was seen by pain management who recommended continuing with [place] and tizanidine. They recommended outpatient follow-up due to her aspirin use. She improved and her pain was controlled. She was up and ambulating. She was determined stable for discharge Follow-up: increase lantus to 15 untis with meals follow with PCP next week as A1C is 11.8. Discussed with Dr. Seo and she is okay to hold ASA while awaiting procedure and likely can come off effient as it has been >1 year since her last stent. She will follow with the pain clinic for an injection next week. She will follow-up with Dr. Mark in 1 to 2 weeks Patient seen and examined at bedside. Doing better pain is better controlled. She is in agreement [facility] discharge with follow-up with pain management. Vital signs reviewed and stable. General: Nontoxic, no distress, appears at stated age Cardiovascular: S1S2 reg, no murmur, positive posterior tibial pulse bilateral, Lungs: CTA bilateral, no rhonchi, no rales, no accessory muscle use Abdominal: Soft, nontender to palpation, no guarding, no appreciable organomegaly Psych: Alert, oriented, appropriate affect A total of 35 minutes of time were spent preparing this complex discharge summary. Patient was discharged on 05/31/23. This dictation was prepared using [employer] voice recognition software. Though every attempt is made to correct errors during dictation some may still exist. Patient Condition at Discharge: Stable Plan - Discharge Summary Discharge Rx Participant: No New Discharge Prescriptions: New HYDROcodone/APAP 10-325MG [[place] 10-325] 1 tab PO Q4HR PRN 3 Days #18 tab PRN Reason: Pain tiZANidine [Zanaflex] 2 mg PO Q8HR PRN #15 tablet PRN Reason: Muscle Spasticity Continue Losartan [Cozaar] 50 mg PO BID hydroCHLOROthiazide [Hydrodiuril] 50 mg PO DAILY DULoxetine HCL [Cymbalta] 20 mg PO DAILY Pioglitazone [Actos] 30 mg PO DAILY Nitroglycerin Sl Tabs [Nitrostat] 0.4 mg SL Q5M PRN PRN Reason: Chest Pain Insulin Glargine,Hum.rec.anlog [Lantus Solostar Pen] 12 units SQ DAILY@1430 guaiFENesin-Coden 100-10MG/5ML [Robitussin AC] 5 ml PO Q6H PRN PRN Reason: Cough [facility] Immune Support 2 tab PO DAILY Atorvastatin [Lipitor] 80 mg PO HS #90 tab Liraglutide [Victoza 3-Louis] 1.8 mg SQ DAILY@1430 Ubidecarenone [Coenzyme Q10] 100 mg PO DAILY Metoprolol Tartrate [Lopressor] 25 mg PO BID metFORMIN HCL ER [Glucophage XR] 500 mg PO BID Discontinued Aspirin 81 mg PO DAILY #90 tab methylPREDNISolone Dose Pack [Medrol Dose Pack] See Taper PO DAILY diazePAM [Valium] 5 mg PO Q8H PRN PRN Reason: Muscle Pain/spasms Cyclobenzaprine [Flexeril] 5 - 10 mg PO TID PRN PRN Reason: Muscle Spasm Prasugrel [Effient] 10 mg PO DAILY #30 tab HYDROcodone/APAP 5-325MG [[place] 5-325] 1 tab PO Q8H PRN PRN Reason: Pain Discharge Medication List DULoxetine HCL [Cymbalta] 20 mg PO DAILY 10/28/21 [History] Losartan [Cozaar] 50 mg PO BID 10/28/21 [History] hydroCHLOROthiazide [Hydrodiuril] 50 mg PO DAILY 10/28/21 [History] Atorvastatin [Lipitor] 80 mg PO HS #90 tab 10/31/21 [Rx] Liraglutide [Victoza 3-Louis] 1.8 mg SQ DAILY@1430 12/27/21 [History] HYDROcodone/APAP 10-325MG [[place] 10-325] 1 tab PO Q4HR PRN 3 Days #18 tab 05/30/23 [Rx] Insulin Glargine,Hum.rec.anlog [Lantus Solostar Pen] 12 units SQ DAILY@1430 05/30/23 [History] Metoprolol Tartrate [Lopressor] 25 mg PO BID 05/30/23 [History] Nitroglycerin Sl Tabs [Nitrostat] 0.4 mg SL Q5M PRN 05/30/23 [History] Pioglitazone [Actos] 30 mg PO DAILY 05/30/23 [History] Ubidecarenone [Coenzyme Q10] 100 mg PO DAILY 05/30/23 [History] [facility] Immune Support 2 tab PO DAILY 05/30/23 [History] guaiFENesin-Coden 100-10MG/5ML [Robitussin AC] 5 ml PO Q6H PRN 05/30/23 [History] metFORMIN HCL ER [Glucophage XR] 500 mg PO BID 05/30/23 [History] tiZANidine [Zanaflex] 2 mg PO Q8HR PRN #15 tablet 05/31/23 [Rx] Follow up Appointment(s)/Referral(s): Arthur Seo MD [STAFF PHYSICIAN] - 1 Week Wilbert Hines PAC [PHYSICIAN SHEET CATCHER] - 2 Weeks (Patient may follow-up with Wilbert Hines PA-C or Dr. González Mark at [facility] in 2-3 weeks following discharge. ) Pain Clinic,[facility] [NON-STAFF] - 1-2 Days Nonstaff,Physician [Primary Care Provider] - 1-2 days Activity/Diet/Wound Care/Special Instructions: Activity: As tolerated, no lifting over 10 pounds Diet: Heart healthy Special Instructions: You may stay off your aspirin and effient for your injection. You can then resume aspirin. While on steroids please take lantus 15 units. please take your victoza when you get home today. Your A1C (3 month blood sugar check) is 11.8 (meaning your average sugar is 292) and you likely need to increase your lantus permanently but please discuss with your primary care provider. Discharge Disposition: HOME SELF-CARE
[2023-05-31 13:02] LABS: Glucose,Whole Blood 401 mg/dL (70-110)
[2023-05-31] MEDS: HYDROcodone/APAP 10-325MG 1 EACH TAB PO PRN (13:39)
[2023-05-31 15:30] LABS: Glucose,Whole Blood 455 mg/dL (70-110)
== END 2023-05-31 15:54 | disposition home or self-care (01) ==
LOC: EC 02:39 → 6NMEDSUR 03:26
PROVIDERS: ADMIT Internal Medicine; ATTEND Internal Medicine
DX: M51.16 Intervertebral disc disorders with radiculopathy, lumbar region (principal); M48.07 Spinal stenosis, lumbosacral region; M51.37 Other intervertebral disc degeneration, lumbosacral region; I25.10 Atherosclerotic heart disease of native coronary artery without angina pectoris; I10 Essential (primary) hypertension; E11.9 Type 2 diabetes mellitus without complications; M06.9 Rheumatoid arthritis, unspecified; M48.00 Spinal stenosis, site unspecified; Z79.4 Long term (current) use of insulin; Z79.85 Long-term (current) use of injectable non-insulin antidiabetic drugs; Z79.84 Long term (current) use of oral hypoglycemic drugs; Z79.02 Long term (current) use of antithrombotics/antiplatelets; Z79.82 Long term (current) use of aspirin; Z79.899 Other long term (current) drug therapy; Z86.16 Personal history of COVID-19; Z95.5 Presence of coronary angioplasty implant and graft
CPT/HCPCS: 96376 ×2; 96361 ×2; 96375 ×2; 96374; 99285; 36415; 80048 ×2; 85025 ×2; 83036; G0378 ×2; J1100; J2930 ×2; J1170 ×2; J1885

== ENCOUNTER → 2023-06-05 | Outpatient (CLI) | payer BC ==
[2023-06-05 10:01] VITALS: BP 125/90; PULSE 87; RESP 16; TEMP 97.5
--- NOTE | 2023-06-05 12:41 | P.PAINPG ---
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 Pt states pain level is provoked at 9/10 in intensity, constant, localized in the lower lumbar spine where it meets the tailbone, predominantly axial, stabbing in character w occasional shooting pain towards the BL feet. Pain is provoked by bending, lifting, twisting, weight bearing activity. She went to 1 PT appt in Apr 2023 but sessions were stopped as it provoked excessive pain. Pain is alleviated by physician guided traction at home 4 times weekly since Apr 2023, medications (Clymer 10/325mg q6h, Zanaflex), sitting on a tennis ball, use of a wheelchair for ambulatory assistance, topical, repositioning and rest. Oswestry axial pain score of 25. PMH: OA, CAD, NIDDM II, HTN, RA PSH: Heart Catheterization With Stent (2021), D&C SH: Never smoker, No ETOH abuse, No illicit drug use FH: MO- Lung CA/ age 41. Fa- CA/ from suicide in 2018 All: See list Meds: See list REVIEW OF ORGAN SYSTEMS: CONSTITUTIONAL: No fevers or chills. No recent weight loss. NEUROLOGICAL: + numbness and tingling along the distal e xtremities. No seizure disorders or headaches. MUSCULOSKELETAL: + pain PSYCHIATRIC: Denies current depression or suicidal thoughts. Physical Examinations : Constitutional : Cooperative , not in acute distress . Neurologic : Cranial nerve II to XII intact. No focal neurological deficits. Psychiatric : alert & oriented x 3. Matching mood & appropriate affect. Judgment & insight intact. Musculoskeletal : Cervical Spine Motor strength in the deltoid and biceps: Normal right side. Normal Left side Motor strength biceps and the wrist extensors: Normal right side . Normal left side Motor strength in the triceps muscle: Normal right side. Normal left side Deep tendon reflexes: Normal at the biceps. Normal at Brachioradialis. Normal at triceps Vertebral body tenderness to deep palpation over Cervical facet loading test: positive bilaterally Spurling test: positive bilaterally Neck distraction test: positive bilaterally Em sign: positive bilaterally Lumbar spine Motor strength lower extremities ,thigh and legs 5/5 Right side , 5/5 Left side Deep tendon reflexes : Normal Knee Jerk. Normal Ankle Jerk Vertebral body tenderness over L5 Cuenca Test positive L5 Lumbar facet Loading Test: positive Right / positive Left Range of motion of the lumbar spine Flexion 30 degrees, extension 10 degrees Straight Leg Raise test: Left/ Right positive at degree Reese test: positive right / positive left. Severe tenderness over the Sacroiliac joint on the Right / Left sides Gaenslen test: positive bilaterally Seated flexion test: positive bilaterally. Sacral spine : Severe tenderness over the Sacroiliac joint: right side / left side Range of motion: Flexion of the lumbar spine <60 degrees Range of motion: Extension of the lumbar spine <20 degrees Gaenslen's Test positive Reese test: positive right side / left side Thigh Thrust Test Sacral Thrust Test Imaging: MRI non contrast of the lumbar spine from 05/29/23 from [facility] on file Assessment/ Plan : L5-S1 disc herniation Would benefit from an PAULA L5-S1. May need a series of injections for optimal pain relief. Risks, benefits of procedure discussed and pt verbalized understanding. Clymer 10/325mg #18 Use, side effects adverse reactions and safe storage discussed. Pt acknowledged understanding. All questions answered. I have spent greater than 30 minutes on patient care today. Dr Alfaro was available by phone for the evaluation of this patient. The time was used to review the medical records including relevant urine studies and Prescription history (MAPs), review of the available imaging, evaluation and examination of the patient, coordination of care with the medical staff and if applicable referring physicians, as well as creation of the medical record - Pain Location Bilateral Lower Back Non-Pharmacological Interventions: Heat, Ice, Inactivity, Position/Reposition, Sitting Pharmacological Interventions: PRN Medication, Topical Medication Home Medications: Ambulatory Orders DULoxetine HCL [Cymbalta] 20 mg PO DAILY 10/28/21 Losartan [Cozaar] 50 mg PO BID 10/28/21 hydroCHLOROthiazide [Hydrodiuril] 50 mg PO DAILY 10/28/21 Atorvastatin [Lipitor] 80 mg PO HS #90 tab 10/31/21 Liraglutide [Victoza 3-Louis] 1.8 mg SQ DAILY@1430 12/27/21 Insulin Glargine,Hum.rec.anlog [Lantus Solostar Pen] 12 units SQ DAILY@1430 05/30/23 Metoprolol Tartrate [Lopressor] 25 mg PO BID 05/30/23 Nitroglycerin Sl Tabs [Nitrostat] 0.4 mg SL Q5M PRN 05/30/23 Pioglitazone [Actos] 30 mg PO DAILY 05/30/23 Ubidecarenone [Coenzyme Q10] 100 mg PO DAILY 05/30/23 [facility] Immune Support 2 tab PO DAILY 05/30/23 guaiFENesin-Coden 100-10MG/5ML [Robitussin AC] 5 ml PO Q6H PRN 05/30/23 metFORMIN HCL ER [Glucophage XR] 500 mg PO BID 05/30/23 predniSONE [Deltasone] 20 mg PO DAILY #3 tab 05/31/23 tiZANidine [Zanaflex] 2 mg PO Q8HR PRN #15 tablet 05/31/23 HYDROcodone/APAP 10-325MG [[place] 10-325] 1 tab PO Q4HR PRN 3 Days #18 tab 06/05/23 Controlled Substance Measures - Controlled Substance Measures Is patient prescribed a controlled substance at discharge?: Yes When asked, does pt state using other controlled substances?: Yes If prescribed controlled substance>3 days was MAPS reviewed?: Prescribed <3 Days
== END ==
LOC: PNWHC3 09:01
PROVIDERS: ATTEND Specialist
DX: M51.27 Other intervertebral disc displacement, lumbosacral region (principal); I25.10 Atherosclerotic heart disease of native coronary artery without angina pectoris; E11.9 Type 2 diabetes mellitus without complications; I10 Essential (primary) hypertension; M06.9 Rheumatoid arthritis, unspecified; Z79.84 Long term (current) use of oral hypoglycemic drugs; Z79.4 Long term (current) use of insulin; Z79.899 Other long term (current) drug therapy
CPT/HCPCS: 99211

== ENCOUNTER 2023-06-25 08:42 | Day surgery (SDC) | payer BC ==
[2023-06-21 12:53] VITALS: BMI 35.6
[2023-06-25 09:03] LABS: Glucose,Whole Blood 306 mg/dL (70-110)
[2023-06-25 09:06] LABS: Glucose,Whole Blood 320 mg/dL (70-110)
[2023-06-25] MEDS: INSULIN ASPART (NovoLOG) 100 UNIT/ML VIAL SQ ONE (09:11)
[2023-06-25 09:25] VITALS: TEMP 97.3
[2023-06-25 09:40] LABS: Glucose,Whole Blood 283 mg/dL (70-110)
[2023-06-25] MEDS ORDERED: methylPREDNISolone ACETATE 40 MG/ML 1 ML VIAL ONE (10:03)
[2023-06-25] MEDS ORDERED: IOPAMIDOL M200 10 ML VIAL ONE (10:03)
--- NOTE | 2023-06-25 10:10 | P.PCN ---
Date of Procedure: 06/25/23 Description of Procedure: Daphney presented with blood sugar of 320, she took her Lantus this morning. She had been on chronic oral steroids unfortunately due to her low back pain. She's been having chronic lower extremity weakness mostly left-sided. Oral steroids were helping but she has been off and on for a few days now. She does not have any short acting insulin home she uses oral medications only outside of the Lantus. She normally takes Lantus in the evening. She took 14 units early this morning. In the preoperative area it was able to give her 6 units of subcutaneous regular insulin for short-term correction. I have advised her to check her sugar this evening before dinner. If the sugars above 300 to take another half of her Lantus and continue with her normal dose tomorrow. I've also advised her to follow up with an extended day teacher given the amount of medication she is currently utilizing for diabetes. The risks and benefits were weighed regarding performing the procedure today and I believe that she will benefit from the injection she can control her risk factors for elevated blood sugars. She seems very reasonable very knowledgeable about her medications and her situation with her insight is good. PREOPERATIVE DIAGNOSIS: lumbar radiculopathy POSTOPERATIVE DIAGNOSIS: Lumbar radiculopathy PROCEDURE 1. Lumbar epidural steroid injection under fluoroscopic guidance at the L5/s1 level. 2. Lumbar epidurogram. Imaging: Fluoroscopy was used, images where saved to the medical record ANESTHESIA: Patient re-evaluated immediately prior to sedation local only EBL: Minimal PROCEDURE INDICATION: The patient with low back pain and radiculitis symptoms unresponsive to conservative treatment. Fluoroscopy was used to optimize visualization of the needle placement and to maximize safety. PROCEDURE DESCRIPTION / TECHNIQUE: The patient was seen and identified in the preoperative area. Risks, benefits, complications including but not limited to infections, bleeding, allergic reaction to medications, nerve damage and incomplete pain relief, as well as alternatives to the procedure were discussed with the patient. The patient agreed to proceed with the procedure and signed the consent. IV was started if indicated above, and vital signs were stable. Patient was taken to the OR and time out was completed. The patient was placed in the prone position on procedure table and a pillow was placed under the abdomen to reduce lumbar lordosis. The lumbosacral area was prepped and draped i n the usual sterile fashion. Vitals were closely monitored during the procedure. Using anterior-posterior fluoroscopy, the L5-S1 interlaminar space was identified and the skin over this site was marked and then infiltrated with 1% lidocaine subcutaneously. Subsequently, a 20-gauge Tuohy epidural needle was inserted and advanced toward the epidural space using the Loss of resistance technique and guided by AP and lateral fluoroscopy. The correct needle position in the epidural space was verified with the injection of 1 mL of Omnipaque 180 contrast to observe an acceptable epidurogram, after negative aspiration for blood and CSF and in the absence of paresthesias. Again after negative aspiration, a 3 ml mixture containing 40mg of depomedrol and 2 ml of preservative free Normal Saline was injected and a washout of epidurogram was seen. Needle was withdrawn intact, skin was cleansed, and bandages were applied. patient has a very tight epidural space and the left paramedian approach, she may benefit from a transforaminal epidural injection in the future at the left L5-S1 or left L4-L5 levels to try and target the left lateral recess more appropriately. COMPLICATIONS: None DISPOSITION / PLANS: The patient was placed in a supine position and transferred to the recovery area in a stable condition for observation. There was no evidence of lower extremity motor or sensory deficit after the procedure. Patient was discharged from the recovery room after meeting discharge criteria. Home discharge instructions were given to the patient by the staff. The patient was reexamined prior to discharge. The patient will follow up as directed.
--- NOTE | 2023-06-25 10:41 | FL ---
Fluoroscopy History: LESI Fluoroscopy provided for pain management
[2023-06-25 10:43] VITALS: BP 110/62; PULSE 80; RESP 16
== END 2023-06-25 10:52 | disposition home or self-care (01) ==
LOC: ORPAIN 08:42
PROVIDERS: ATTEND Hospitalist
DX: M54.16 Radiculopathy, lumbar region (principal); E11.9 Type 2 diabetes mellitus without complications; Z79.82 Long term (current) use of aspirin; Z79.84 Long term (current) use of oral hypoglycemic drugs
CPT/HCPCS: 81025; 62323; J1030; Q9966

== ENCOUNTER → 2023-08-05 | Outpatient (CLI) | payer BC ==
[2023-08-05 12:18] LABS: Appearance,Urine Clear (Clear); Bilirubin,Urine Negative (Negative); Blood,Urine Negative (Negative); Color,Urine Light Yellow; Glucose,Urine (UA) 4+ (Negative); Ketones,Urine 1+ (Negative); Leukocyte Esterase,Urine Negative (Negative); Nitrite,Urine Negative (Negative); Protein,Urine Negative (Negative); Specific Gravity,Urine 1.025 (1.001-1.035); Urobilinogen,Urine <2.0 mg/dL (<2.0)
[2023-08-05 12:43] LABS: INR 0.9 (<1.2); Prothrombin Time 10.2 sec (10.0-12.5)
[2023-08-05 12:50] LABS: Partial Thromboplastin Time 21.8 sec (22.0-30.0)
--- NOTE | 2023-08-05 13:35 | XR ---
EXAMINATION TYPE: XR chest 2V DATE OF EXAM: 08/05/2023 COMPARISON: 12/27/2021 HISTORY: 47-year-old female presurgical evaluation, Z01.818, history of cardiac stent TECHNIQUE: Frontal and lateral views FINDINGS: The cardiomediastinal silhouette, aorta, and pulmonary vasculature are within normal limits. Lungs an d pleural spaces are clear. IMPRESSION: No acute cardiopulmonary process.
[2023-08-05 14:45] LABS: Basophils # (A) 0.03 X 10*3/uL (0.00-0.10); Basophils % (A) 0.5 %; Eosinophils # (A) 0.02 X 10*3/uL (0.04-0.35); Eosinophils % (A) 0.3 %; HCT 44.9 % (37.2-46.3); Lymphocytes # (A) 1.18 X 10*3/uL (0.90-5.00); Lymphocytes % (A) 18.7 %; MCH 28.6 pg (27.0-32.0); MCHC 33.4 g/dL (32.0-37.0); MCV 85.5 FL (80.0-97.0); Mean Platelet Volume 10.2 FL (9.5-12.2); Monocytes # (A) 0.44 X 10*3/uL (0.20-1.00); NRBC Per 100 WBC 0 X 10*3/uL (0.00-0.01); Neutrophils # (A) 4.62 X 10*3/uL (1.80-7.70); Neutrophils % (A) 73.2 %; Platelet Count 351 X 10*3/uL (140-440); RBC 5.25 X 10*6/uL (4.10-5.20); RDW 12.7 % (11.5-14.5); WBC 6.31 X 10*3/uL (4.50-10.00)
[2023-08-05 15:00] LABS: BUN/Creat Ratio 27.88 Ratio (12.00-20.00); Blood Urea Nitrogen 22.3 mg/dL (9.0-27.0); Calcium 9.6 mg/dL (8.7-10.3); Carbon Dioxide 26.2 mmol/L (21.6-31.8); Chloride 95 mmol/L (96-109); Glucose 181 mg/dL (70-110); Potassium 3.1 mmol/L (3.5-5.5); Sodium 138 mmol/L (135-145)
== END | disposition home or self-care (01) ==
LOC: LABWHC1 10:56
PROVIDERS: ATTEND Orthopaedic Surgery Orthopaedic Surgery of the Spine
DX: Z01.818 Encounter for other preprocedural examination (principal); M51.25 Other intervertebral disc displacement, thoracolumbar region; Z22.322 Carrier or suspected carrier of Methicillin resistant Staphylococcus aureus; Z95.5 Presence of coronary angioplasty implant and graft
CPT/HCPCS: 36415; 71046; 80048; 81003; 85025; 85610; 85730; 86850; 86900; 86901; 87070; 93005

== ENCOUNTER 2023-08-12 06:16 | Observation (INO) | payer BC ==
[2023-08-07 09:56] VITALS: BMI 34.0
[2023-08-12] MEDS ORDERED: MIDAZOLAM 2 MG/2 ML VIAL IV PRN (07:00)
[2023-08-12 07:18] LABS: Glucose,Whole Blood 152 mg/dL (70-110)
[2023-08-12] MEDS: ONDANSETRON 4 MG/2 ML VIAL IVP ONE (07:25)
[2023-08-12] MEDS: LACTATED RINGERS 1,000 ML IV SCH (07:25)
[2023-08-12] MEDS ORDERED: NEOSTIGMINE 1 MG/ML 10 ML VIAL ONE (07:38)
[2023-08-12] MEDS ORDERED: KETOROLAC 15 MG/ML 1 ML VIAL ONE (07:38)
[2023-08-12] MEDS ORDERED: fentaNYL (PF) 50 MCG/ML 2 ML AMP ONE (07:38)
[2023-08-12] MEDS ORDERED: SUCCINYLCHOLINE CHLORIDE 200 MG/10 ML VIAL IV ONE (07:38)
[2023-08-12] MEDS ORDERED: GLYCOPYRROLATE 0.2 MG/ML 2 ML VIAL ONE (07:38)
[2023-08-12] MEDS ORDERED: ePHEDrine 50 MG/ML 1 ML VIAL ONE (07:38)
[2023-08-12] MEDS ORDERED: PHENYLEPHRINE 10 MG/ML VIAL ONE (07:38)
[2023-08-12] MEDS ORDERED: LIDOCAINE 1% INJ 10MG/ML (20 ML MDV) ONE (07:38)
[2023-08-12] MEDS ORDERED: ROCURONIUM 10 MG/ML (5 ML VIAL) IV ONE (07:38)
[2023-08-12] MEDS ORDERED: MIDAZOLAM 2 MG/2 ML VIAL ONE (07:38)
[2023-08-12] MEDS ORDERED: HYDROmorphone (PF) 1 MG/ML ONE (07:38)
[2023-08-12] MEDS ORDERED: PROPOFOL 10 MG/ML 20 ML VIAL IV ONE (07:38)
[2023-08-12] MEDS: LIDOCAINE 1%-EPI 1:100,000 20 ML VIAL SQ ONE (08:09)
[2023-08-12] MEDS: GELATIN SPONGE,ABSORB (LARGE) 1 EACH SPONGE TOPICAL ONE (08:22)
[2023-08-12] MEDS: THROMBIN (BOVINE) 5,000 UNIT VIAL TOPICAL ONE (08:22)
[2023-08-12] MEDS: ceFAZolin 1,000 MG in SODIUM CHLORIDE 0.9% IRRIGATIO 1,000 ML IRRIGATION PRN (08:23)
[2023-08-12] MEDS: LACTATED RINGERS 1,000 ML IV ONE ×4 (08:25→13:09)
[2023-08-12] MEDS ORDERED: ONDANSETRON 4 MG/2 ML VIAL IVP PRN (10:01)
[2023-08-12] MEDS ORDERED: SENNOSIDES-DOCUSATE SODIUM 1 EACH TAB PO PRN (10:01)
[2023-08-12] MEDS ORDERED: BENZOCAINE/MENTHOL LOZENG 1 EACH LOZENGE MUCOUS MEM PRN (10:01)
[2023-08-12] MEDS ORDERED: NITROGLYCERIN SL TABS 0.4 MG TAB SUBLINGUAL PRN (10:07)
--- NOTE | 2023-08-12 10:15 | P.OP ---
Date of Procedure: 08/12/23 Preoperative Diagnosis: Herniated nucleus pulposus L5-S1 with extruded fragment, severe spinal stenosis L5-S1, degenerative disc disease L5-S1, lower extremity radiculopathy, lower extremity weakness, facet arthrosis Postoperative Diagnosis: Same Anesthesia: GETA Pathology: none sent Condition: stable Disposition: PACU Description of Procedure: DESCRIPTION OF PROCEDURE(S): BRIEF OPERATIVE NOTE Preoperative Diagnosis: Herniated nucleus pulposus L5-S1 with extruded fragment, severe spinal stenosis L5-S1, degenerative disc disease L5-S1, lower extremity radiculopathy, lower extremity weakness, facet arthrosis Postoperative Diagnosis: Same Procedure: Laminectomy and decompression L5-S1 Computer CT navigation aided Minimally invasive Posterior lateral decompression and facet fusion L5-S1 Minimally invasive Transforaminal lumbar interbody fusion for a 360 fusion L5-S1 Discectomy for decompression at L5-S1 beyond the scope of preparation for fusion Placement of interbody graft L5-S1 Use of computer navigation for fusion L5-S1 Local autogenous bone grafting Aspiration of bone marrow from the vertebral body pedicle L5 on the right Use of bone graft extenders Surgeon: Dr. Mark Client Success Manager: Wilbert OSMAN who is present throughout the entire the case persistence during positioning, dissection, exposure, visualization, and all crucial elements of the case as well as closure. Anesthesia: General anesthesia per Dr. Adkins Estimated blood loss: Approximately 150 mL Complications: None apparent Components implanted: K2M minimally invasive [place] pedicle screw system withscrews measuring 6.5 mm in diameter to rods one [place] interbody cage with 10 mL of osteo amp bio4 bone graft substitute and 30 mL of the BX bone fibers to supplement the local autogenous bone graft and bone marrow aspirate Disposition: To recovery room in good stable condition. OPERATIVE INDICATIONS The patient has had severe issues at their lower extremity in her lower back over the past several months with significant worsening. She has had long-term pain in her lower back but has had severe worsening particularly at her left lower extremity. Over the past few months the patient had pain at their back and their lower extremities. The patient is having severe radicular symptoms at their lower extremity with weakness. Her pain at her left leg followed an S1 distribution and was becoming incapacitating for her. The patient is having significant pain in their back. They are unable to obtain any comfort. We did aggressive conservative treatment with medications therapy and interventional pain management however thery were not having any relief. There was a large disc herniation L5-S1 with extruded fragment causing severe stenosis at that level. There is severe disc degeneration and disc breakdown with sclerotic margins and Modic changes extending through L5 and S1 vertebrae. Decompression would further destabilize the area and may further create instability at the level and given her back pain and the extent of the decompression necessary felt that decompression and fusion would serve her the best long-term result. The patient has been through conservative treatment. We discussed various treatment options including surgery, and the patient wishes to proceed with surgery We discussed the risk, patient's alternatives and benefits of surgery including but not limited to, risk of bleeding risk of infection, risk of need for further surgery, risk of decreased, loss of motion, muscle function, malunion nonunion, hardware failure, nerve damage, paralysis, heart attack, blindness and . They understood issues with the current pandemic and the possibility of exposure. OPERATIVE SUMMARY After discussing all the risks, patient alternatives and benefits at length, the patient elected to proceed with surgical intervention, signed informed consent, and presented for their procedure. The patient was seen and examined in the preoperative holding area and the surgical site was marked. The patient was given antibiotics and brought to the operating room. The patient was sedated and intubated by anesthesia in standard fashion. The patient was positioned on to the operating room table in a prone position on the appropriate frame which was well-padded and well molded. We were careful to pad any bony prominences and pressure points. We were careful to maintain the patient's cervical spine and good neutral alignment and position throughout. The patient was prepped and draped in a normal standard fashion. An appropriate timeout and keystone protocol performed. We were able to proceed with the surgery. The local wound area was infiltrated with local anesthetic. Over the right iliac crest I was able to make small stab incisions and establish a guidepin screw fixation to the iliac crest 2. I was able place the computer referencing device over the guidepins to establish an appropriate reference point for the Ziem CT navigation. We then were able to place patient in an appropriate drape and do a navigation spin for visualization and 3-D reconstruction of the lumbar spine. I was able utilize C-arm guidance and navigation to establish appropriate position over the pedicles bilaterally at the appropriate levels at L5 and S1. With the appropriate levels confirmed was able to make small incisions over the appropriate pedicle sites bilaterally. Utilizing the computer navigation device I was able to establish bony landmarks at the right iliac crest for a bony reference point for the navigation device. I was able to establish a Jamshidi needle over the lateral aspect of the pedicle and advanced the trocar into the pedicle being careful not to breech superiorly inferiorly medially or laterally using computer navigation device. Position was confirmed regularly with AP and lateral images on C-arm and with the computer navigation device at the appropriate levels bilaterally at L5 and S1. I was able to establish the trocar into the pedicle appropriately into the posterior aspect of the vertebral body bilaterally at the appropriate levels. This was done at each of the pedicle positions and each of the vertebrae. At the superior vertebrae of L5 on the right I was able to take approximately 5 mL of bone aspiration for use later in the case to supplement the allograft and autograft bone. I was able place the guidewire into the trocar and into the vertebral body appropriately under C-arm guidance. Dissection was taken down over the wire to the appropriate starting position for the screw placed. The appropriate length screw was chosen, threaded over the guidewire and screwed appropriately into the pedicle and vertebral body under C-arm guidance in excellent alignment and position with good bony purchase. This is done at each of the screw sites at the appropriate levels at L5 and S1. With the screws intact I extended the incision to connect the screw hole sites on the most symptomatic side on the left. I dissected down to establish access over the pars and lamina to the base of the spinous process. I was able to expose the facet joint. The capsule the facet was taken down and showed some facet arthrosis at the joint. I was able to use a combination of curettes and Kerrison rongeurs and a high-speed drill to take down the facet joint and do a facetectomy. I was able get excellent foraminal decompression and central decompression with undermining across midline to perform a laminectomy centrally and contralaterally. I was able get good central decompression. The ligamentum flavum was taken down to further decompress centrally and at bilateral neural foramen. I was able to expose the disc space and visualize the traversing nerve root. Note was made large disc herniation with extrusion and disc herniation t hat was abutting and severely distorting with tension the traversing nerve root at the level causing further compression of the nerve root. I was able to establish a annulotomy at the appropriate level protecting soft tissue and neural structures. Note was made of some disc desiccation at the disc. There was scar tissue over the disc itself which I was able to take down and I was able to remove a large extruded disc fragment as well as multiple portions of disc that had severely broken down within the disc space. I performed a complete discectomy with accommodation of curettes and rasps and scrapers. I was able get good endplate preparation at the disc space. I sized for the appropriate size interbody spacer protecting the soft tissue and neural structures. The wound was copiously irrigated and suctioned dry. There is no evidence of any dural tear or leak. I was able to pack the disc space with local autogenous bone graft as well as a small amount of bone graft which was also placed into the interbody cage itself. Protecting the soft tissue structures and neural structures I was able place the interbody cage in good alignment and good position with good fit and fill at the interbody space. Position was confirmed with C-arm guidance. Good hemostasis maintained. There is no evidence of any dural tear or leak. The wound was irrigated and suctioned dry. With the hardware intact, intraoperative C-arm imaging was again taken which showed good alignment and position of the hardware at the appropriate levels at L5-S1. We were then able to measure, contour and place the rods and appropriate hardware bilaterally. I was able to place capcrews, tighten them down, and torque them with the torque screwdriver appropriately. With this intact I was able to place the local autogenous bone graft with additional bone graft enhancer as necessary into the posterior lateral gutters over the decorticated transverse processes and facet joints on the contralateral side. The remainder of the bone graft was placed over the facet joint on the contralateral side after taking down the facet joint capsule. With the bone graft intact, a stable construct, and good decompression at the appropriate levels, we were able to proceed with closure. Good hemostasis was maintained. There is no evidence of dural tear or leak. The fascia was closed for a watertight closure. he subcuticular tissue was closed with absorbable suture. The wound was cleaned and dried and dressed with the appropriate dressing. The drapes were broken down. The patient was gently rolled back onto their hospital bed being careful to maintain their cervical spine and good neutral alignment and position. They were woken up by anesthesia, extubated, and brought to the recovery room in good stable condition. The patient will be admitted to the hospital for appropriate postoperative care, medical management and monitoring. We will continue to follow them closely about the postoperative course.
--- NOTE | 2023-08-12 10:21 | FL ---
EXAMINATION TYPE: FL guidance operating room, XR lumbar spine 2 or 3V Intraoperative/procedural fluor oscopic services were provided. Total fluoroscopy time is 4.9 seconds with a total of 5 submitted jeniffer ges to PACS. Please see the operative/procedural note for further details. DAP: 1478 cGycm2
[2023-08-12 10:30] LABS: Glucose,Whole Blood 167 mg/dL (70-110)
[2023-08-12] MEDS: HYDROmorphone 0.5 MG/0.5 ML SYRINGE IVP PRN ×2 (14:45→18:33)
[2023-08-12] MEDS: SCOPOLAMINE 1 MG/72 HR PATCH TRANSDERM ONE (17:04)
[2023-08-12] MEDS: DEXAMETHASONE SOD PHOSPHATE 4 MG/ML 1 ML VIAL IV ONE (17:04)
[2023-08-12] MEDS: SODIUM CHLORIDE 0.9% 1,000 ML IV SCH (17:09)
[2023-08-12 17:22] LABS: Glucose,Whole Blood 117 mg/dL (70-110)
[2023-08-12 20:14] LABS: Glucose,Whole Blood 128 mg/dL (70-110)
[2023-08-12 20:33] LABS: African American GFR (CKD) >90 (>60 ml/min/1.73 sqM); Anion Gap 4 mmol/L; Blood Urea Nitrogen 18 mg/dL (7-17); Calcium 8.3 mg/dL (8.4-10.2); Carbon Dioxide 31 mmol/L (22-30); Chloride 101 mmol/L (98-107); Glucose 118 mg/dL (74-99); Non-African American GFR(CKD) >90 (>60 ml/min/1.73 sqM); Potassium 2.8 mmol/L (3.5-5.1); Sodium 136 mmol/L (137-145)
[2023-08-12] MEDS: metFORMIN 500 MG TAB PO SCH (20:51)
[2023-08-12] MEDS: CYCLOBENZAPRINE 10 MG TAB PO PRN (20:51)
[2023-08-12] MEDS: LOSARTAN 50 MG TAB PO SCH (20:51)
[2023-08-12] MEDS: ATORVASTATIN 80 MG TAB PO SCH (20:51)
[2023-08-12] MEDS: HYDROcodone/APAP 5-325MG 1 EACH TAB PO PRN (22:16)
[2023-08-12] MEDS: HYDROmorphone 1 MG/ML 1 ML SYRINGE IVP PRN (23:58)
--- NOTE | 2023-08-13 03:44 | P.CONS ---
History of Present Illness - Reason for Consult Consult date: 08/12/23 - History of Present Illness Patient is a 47-year-old female with a PMH of hypertension, type II DM, hyperlipidemia, who was admitted for an elective lumbosacral laminectomy and fusion. The patient underwent the procedure earlier today and was seen postoperatively on the surgical unit. She reported good control of her pain at the time of interview, rated at a 3 out of 10 at the lower back. She denied any additional complaints. Denied experiencing chest discomfort, shortness of breath, fever, chills, cough, nausea, vomiting, abdominal pain, diarrhea. She reports compliance with all her home medications. Review of systems: Pertinent positives and negatives as discussed in HPI, a complete review of systems was performed and all other systems are negative. Physical examination: Vital signs reviewed General: non toxic, no distress, appears at stated age, n obese Derm: no unusual rashes/lesions, warm Head: atraumatic, normocephalic, symmetric Eyes: EOMI, no lid lag, anicteric sclera, pupils equal round reactive to light ENT: Nose and ears atraumatic Neck: No cervical lymphadenopathy, trachea midline, supple Mouth: no lip lesion, mucus membranes moist Cardiovascular: S1S2 reg, no murmur, positive dorsalis pedis pulse bilateral, no edema Lungs: CTA bilateral, no rhonchi, no rales, no accessory muscle use Abdominal: soft, nontender to palpation, no guarding Ext: muscle strength 5 out of 5 in all 4 extremities grossly, no gross muscle atrophy, no contractures Neuro: CN II-XI grossly intact, no gross focal neuro deficits Psych: Alert, oriented, appropriate affect Assessment: Hypokalemia Chronic conditions: Type II DM, hypertension, hyperlipidemia Status post lumbosacral laminectomy and fusion Data Review: Laboratory evaluation was reviewed with sodium 136, potassium 2.8, CO2 31, BUN 18, creatinine 0.53, glucose 118. Plan: Replace potassium and monitor Insulin sliding scale and blood glucose monitoring Resume home hydrochlorothiazide, Lopressor, losartan, Lipitor Defer resumption of aspirin along with pain control and DVT prophylaxis to primary surgery service We appreciate this opportunity to be involved in this patient's care. We will follow the patient with you. For any further questions, please not hesitate to contact the sound inpatient team. Past Medical History Past Medical History: Coronary Artery Disease (CAD), Diabetes Mellitus, Hyperlipidemia, Hypertension, Rheumatoid Arthritis (RA), Skin Disorder Additional Past Medical History / Comment(s): Neuropathy in feet. Psoriatic arthritis and psoriasis. History of Any Multi-Drug Resistant Organisms: None Reported Past Surgical History: Heart Catheterization With Stent Additional Past Surgical History / Comment(s): D&C X2, Pain Clinic Procedure. Past Anesthesia/Blood Transfusion Reactions: Family History of Problems w/ Anesthesia Additional Past Anesthesia/Blood Transfusion Reaction / Comm: Sister could hear and feel everything during surgery. Date of Last Stent Placement:: 10/28/21 Past Psychological History: No Psychological Hx Reported Smoking Status: Never smoker Past Alcohol Use History: Rare Past Drug Use History: Marijuana Additional Drug Use History / Comment(s): Marijuana gummies for pain. Aware no use 24 hrs prior to procedure. - Past Family History Mother Family Medical History: Cancer Additional Family Medical History / Comment(s): Lung cancer - at age 39. Father Family Medical History: Cancer Additional Family Medical History / Comment(s): Committed suicide 5 years ago. Medications and Allergies Home Medications Medication Instructions Recorded Confirmed Type DULoxetine HCL [Cymbalta] 20 mg PO DAILY 10/28/21 08/12/23 History Losartan [Cozaar] 50 mg PO BID 10/28/21 08/12/23 History hydroCHLOROthiazide [Hydrodiuril] 50 mg PO DAILY 10/28/21 08/12/23 History Atorvastatin [Lipitor] 80 mg PO HS #90 tab 10/31/21 08/12/23 Rx Liraglutide [Victoza 3-Louis] 1.8 mg SQ DAILY@1430 12/27/21 08/12/23 History Insulin Glargine,Hum.rec.anlog 12 units SQ DAILY@1430 05/30/23 08/12/23 History [Lantus Solostar Pen] Metoprolol Tartrate [Lopressor] 50 mg PO DAILY 05/30/23 08/12/23 History Nitroglycerin Sl Tabs [Nitrostat] 0.4 mg SL Q5M PRN 05/30/23 08/12/23 History Pioglitazone [Actos] 30 mg PO DAILY 05/30/23 08/12/23 History metFORMIN HCL ER [Glucophage XR] 500 mg PO BID 05/30/23 08/12/23 History Aspirin [Adult Low Dose Aspirin EC] 81 mg PO DAILY 08/07/23 08/12/23 History Allergies Allergy/AdvReac Type Severity Reaction Status Date / Time No Known Allergies Allergy Verified 08/12/23 07:01 Physical Exam Vitals: Vital Signs Temp Pulse Pulse Resp BP BP Pulse Ox 08/13/23 01:45 98.5 F 103 H 17 90/57 92 L 08/12/23 19:35 76 17 08/12/23 19:01 98.2 F 76 17 101/61 93 L 08/12/23 16:57 98.4 F 63 16 106/69 100 08/12/23 16:30 71 16 103/60 98 08/12/23 16:00 67 16 104/61 97 08/12/23 15:30 69 16 100/59 97 08/12/23 15:00 67 16 103/61 93 L 08/12/23 14:30 69 16 96/54 98 08/12/23 14:00 70 16 100/55 95 08/12/23 13:28 74 16 92/52 93 L 08/12/23 12:58 71 16 95/56 94 L 08/12/23 12:30 70 16 96/54 96 08/12/23 12:00 71 16 99/55 97 08/12/23 11:30 74 16 97/54 94 L 08/12/23 11:06 68 16 96/57 94 L 08/12/23 10:51 70 16 100/57 96 08/12/23 10:36 67 16 101/57 93 L 08/12/23 10:21 71 16 100/58 96 08/12/23 10:06 97.1 F L 86 18 106/56 98 08/12/23 07:20 98.2 F 71 16 108/65 98 Intake and Output 08/12/23 08/12/23 08/13/23 14:59 22:59 06:59 Intake Total 3651 Output Total 786 916 0688 Balance 3351 -900 -1900 Intake: IV 3651 Output: Urine 549 288 6186 Estimated Blood Loss 150 Other: Voiding Method Indwelling Catheter Weight 91.1 kg Results CBC & Chem 7: 08/12/23 19:54 Labs: Abnormal Lab Results - Last 24 Hours (Table) 08/12/23 08/12/23 08/12/23 Range/Units 07:11 07:14 10:29 Sodium (137-145) mmol/L Potassium 3.0 L (3.5-5.1) mmol/L Carbon Dioxide (22-30) mmol/L BUN (7-17) mg/dL Glucose (74-99) mg/dL POC Glucose (mg/dL) 152 H 167 H (70-110) mg/dL Calcium (8.4-10.2) mg/dL 08/12/23 08/12/23 08/12/23 Range/Units 17:20 19:54 20:12 Sodium 136 L (137-145) mmol/L Potassium 2.8 L (3.5-5.1) mmol/L Carbon Dioxide 31 H (22-30) mmol/L BUN 18 H (7-17) mg/dL Glucose 118 H (74-99) mg/dL POC Glucose (mg/dL) 117 H 128 H (70-110) mg/dL Calcium 8.3 L (8.4-10.2) mg/dL
[2023-08-13] MEDS: POTASSIUM CHLORIDE ER 20 MEQ TAB.ER PO SCH (03:50)
[2023-08-13] MEDS: POTASSIUM CHLORIDE 10 MEQ in WATER FOR INJECTION 1 100ML.BAG IVPB SCH (03:51)
[2023-08-13 07:25] LABS: Glucose,Whole Blood 151 mg/dL (70-110)
--- NOTE | 2023-08-13 08:35 | P.PN ---
Progress Note - Text Progress Note Date: 08/13/23 Orthopedic Spine History of present illness: Patient is a pleasant 47-year-old female who is seen and examined at the bedside following posterior lateral decompression and fusion performed yesterday. Patient states they are doing ok post operatively but is having significant pain at the surgical sites at her lumbar spine. She is currently lying flat in bed. She has had difficulty with her mobilization. She has not been out of bed yet following surgery. She is not complaining of any numbness in her left lower extremity. She was having significant difficulty with her left lower extremity previously. Her pain is most significant at her lumbar spine. Currently does not complain of nausea, vomiting, fever, or chills. Patient is eating without difficulty. She currently has a Norman catheter intact. She continues to require IV and oral medications for pain control. She is being seen and examined by medicine for medical management postoperatively. She was found to have hypokalemia and was given replacement potassium. She continues to be seen for her other medical diagnoses including type 2 diabetes mellitus, hypertension, and hyperlipidemia. Physical Exam Lumbar Fusion: Status post surgical day number 1 Patient is awake, alert, and oriented 3 Vital signs stable Good chest excursion with deep inspiration and expiration Dorsiflexion, plantarflexion, and extensor hallucis longus positive sustained bilaterally No signs or symptoms of DVT; no calf pain; pneumatic cuffs intact bilateral lower extremities Optifoam dressings remain intact over the lumbar spine and right iliac crest; no erythema, purulence, or signs of infection Neurovascularly intact bilaterally lower extremities Norman catheter intact Assessment: Status post L5-S1 minimally invasive posterior lateral decompression and fusion with transforaminal lumbar interbody fusion Low back pain L5-S1 herniated nucleus pulposus with extruded fragment L5-S1 severe spinal stenosis L5-S1 degenerative disc disease Lower extremity radiculopathy Lower extremity weakness Lumbar facet arthrosis Hypokalemia Type 2 diabetes Hypertension Hyperlipidemia obesity Plan: 1. Ambulate as tolerated; work with Physical Therapy to increase mobilization 2. Continue pain control with IV and oral medications; she has been having significant difficulty with pain control at her lumbar spine. We will plan to increase hydrocodone to 7.5 mg / 325 mg, 1-2 tabs every 4 hours as needed for acute pain and will continue with IV Dilaudid as prescribed as needed for pain control 3. Dressings to remain intact with Optifoam; patient may shower with dressings intact 4. Norman catheter will remain intact until patient is able to increase her mobility and ambulation 5. Medical management can continue to manage patient for patient's other medical diagnoses including hypokalemia, type 2 diabetes, hypertension, and hyperlipidemia 6. We will continue to follow the patient closely; depending on the patient's progress, we may plan for discharge her home over the next 1 to 2 days 7. Patient can follow-up with Wilbert Hines PA-C or Dr. González Mark at [facility] in 2-3 weeks following discharge
[2023-08-13] MEDS: ASPIRIN 81 MG PO SCH (08:49)
[2023-08-13] MEDS: METOPROLOL TARTRATE 50 MG TAB PO SCH (08:49)
[2023-08-13] MEDS: DULoxetine HCL 20 MG CAPSULE.DR PO SCH (08:49)
[2023-08-13] MEDS: INSULIN ASPART (NovoLOG) 100 UNIT/ML VIAL SQ SCH (08:49)
[2023-08-13 08:58] LABS: African American GFR (CKD) >90 (>60 ml/min/1.73 sqM); Anion Gap 1 mmol/L; Blood Urea Nitrogen 11 mg/dL (7-17); Calcium 8.3 mg/dL (8.4-10.2); Carbon Dioxide 35 mmol/L (22-30); Chloride 101 mmol/L (98-107); Glucose 147 mg/dL (74-99); Non-African American GFR(CKD) >90 (>60 ml/min/1.73 sqM); Potassium 3.7 mmol/L (3.5-5.1); Sodium 137 mmol/L (137-145)
[2023-08-13] MEDS ORDERED: PIOGLITAZONE 30 MG TAB PO SCH (09:00)
--- NOTE | 2023-08-13 11:23 | P.PN ---
Subjective Progress Note Date: 08/13/23 Patient has no new complaints.. Her potassium is improved to 3.7 with replacement. Gen: In NAD, non-toxic HEENT: normocephalic, atraumatic, hearing acuity is intant, mucous membranes moist CVS: perfusing all extremities well, no pitting edema, Respiratory: symmetric chest expansion, no accessory muscle use, GI: soft, NTTP, ND, : no suprapubic tenderness, no CVA tenderness MSK/Derm: no rashes, cyanosis Neuro: CN II-XII intact, no motor weakness, Psych: cooperative, euthymic mood, judgment and insight is intact Hospital course: Patient is a 47-year-old female with a PMH of hypertension, type II DM, hyperlipidemia, who was admitted for an elective lumbosacral laminectomy and fusion. The patient underwent the procedure and was seen postoperatively on the surgical unit. Assessment: Hypokalemia Chronic conditions: Type II DM, hypertension, hyperlipidemia Status post lumbosacral laminectomy and fusion Data Review: Laboratory evaluation was reviewed with sodium 136, potassium 2.8, CO2 31, BUN 18, creatinine 0.53, glucose 118. Plan: Replace potassium and monitor Insulin sliding scale and blood glucose monitoring, resume home insulin levemir 12U Daily Resume home Lopressor, losartan, Lipitor Defer resumption of aspirin along with pain control and DVT prophylaxis to primary surgery service Patient is medically stable for discharge, recommend discontinuing hydrochlorothiazide given hypokalemia and borderline low BPs, and following up outpatient for titration of blood pressure medication We appreciate this opportunity to be involved in this patient's care. We will follow the patient with you. For any further questions, please not hesitate to contact the sound inpatient team. Objective - Vital Signs Vital signs: Vital Signs Temp 99.6 F 08/13/23 07:22 Pulse 81 08/13/23 07:22 Resp 17 08/13/23 07:22 BP 99/63 08/13/23 07:22 Pulse Ox 94 L 08/13/23 07:22 FiO2 Intake & Output 08/12/23 08/13/23 08/13/23 18:59 06:59 18:59 Intake Total 3651 Output Total 1200 1900 Balance 2451 -1900 Weight 91.1 kg Intake: IV 3651 Output: Urine 1050 1900 Estimated Blood Loss 150 Other: Voiding Method Indwelling Catheter - Labs CBC & Chem 7: 08/13/23 07:25 Labs: Abnormal Lab Results - Last 24 Hours (Table) 08/12/23 08/12/23 08/12/23 Range/Units 17:20 19:54 20:12 Sodium 136 L (137-145) mmol/L Potassium 2.8 L (3.5-5.1) mmol/L Carbon Dioxide 31 H (22-30) mmol/L BUN 18 H (7-17) mg/dL Creatinine (0.52-1.04) mg/dL Glucose 118 H (74-99) mg/dL POC Glucose (mg/dL) 117 H 128 H (70-110) mg/dL Calcium 8.3 L (8.4-10.2) mg/dL 08/13/23 08/13/23 Range/Units 07:24 07:25 Sodium (137-145) mmol/L Potassium (3.5-5.1) mmol/L Carbon Dioxide 35 H (22-30) mmol/L BUN (7-17) mg/dL Creatinine 0.50 L (0.52-1.04) mg/dL Glucose 147 H (74-99) mg/dL POC Glucose (mg/dL) 151 H (70-110) mg/dL Calcium 8.3 L (8.4-10.2) mg/dL
[2023-08-13] MEDS: HYDROcodone/APAP 7.5-325MG 1 EACH TAB PO PRN (11:35)
[2023-08-13 12:37] LABS: Glucose,Whole Blood 221 mg/dL (70-110)
[2023-08-13] MEDS: NON FORMULARY DRUG (Liraglutide [Victoza 3-Pak] 0.6 MG/0.1 ML Ml) SQ SCH (12:42)
[2023-08-13] MEDS: INSULIN DETEMIR (LEVEMIR) 100 UNIT/ML SYR SQ SCH (14:29)
[2023-08-13 15:36] LABS: Basophils # (A) 0.02 X 10*3/uL (0.00-0.10); Basophils % (A) 0.3 %; Eosinophils # (A) 0.03 X 10*3/uL (0.04-0.35); Eosinophils % (A) 0.4 %; HCT 34.5 % (37.2-46.3); HGB 11.7 g/dL (12.0-15.0); Lymphocytes # (A) 1.35 X 10*3/uL (0.90-5.00); Lymphocytes % (A) 19.1 %; MCH 29.4 pg (27.0-32.0); MCHC 33.9 g/dL (32.0-37.0); MCV 86.7 FL (80.0-97.0); Mean Platelet Volume 10.2 FL (9.5-12.2); Monocytes # (A) 0.43 X 10*3/uL (0.20-1.00); Monocytes % (A) 6.1 %; NRBC Per 100 WBC 0 X 10*3/uL (0.00-0.01); Neutrophils # (A) 5.21 X 10*3/uL (1.80-7.70); Platelet Count 214 X 10*3/uL (140-440); RBC 3.98 X 10*6/uL (4.10-5.20); RDW 12.7 % (11.5-14.5); WBC 7.05 X 10*3/uL (4.50-10.00)
[2023-08-13 17:22] LABS: Glucose,Whole Blood 256 mg/dL (70-110)
[2023-08-13 20:18] LABS: Glucose,Whole Blood 245 mg/dL (70-110)
[2023-08-14 07:24] LABS: Glucose,Whole Blood 174 mg/dL (70-110)
--- NOTE | 2023-08-14 11:35 | P.PN ---
Progress Note - Text Progress Note Date: 08/14/23 Orthopedic Spine History of present illness: Patient is a pleasant 47-year-old female who is seen and examined at the bedside following posterior lateral decompression and fusion performed yesterday. Patient states she is doing much better today and is progressing significantly well as compared to yesterday. Her pain is better controlled. She does continue to have pain at her surgical sites at her lumbar spine. She is not currently complaining of any lower extremity weakness or radiculopathy. Her pain is most significant at her lumbar spine. Currently does not complain of nausea, vomiting, fever, or chills. Patient is eating without difficulty. Her Norman catheter has been discontinued. She is voiding without difficulty. She continues to require IV and oral medications for pain control. She has been working with physical therapy to increase her mobility and ambulation. She is utilizing a walker to aid in ambulation. She is being seen and examined by medicine for medical management postoperatively. She was found to have hypokalemia and was given replacement potassium. Her hypokalemia has improved. She continues to be seen for her other medical diagnoses including type 2 diabetes mellitus, hypertension, and hyperlipidemia. Physical Exam Lumbar Fusion: Status post surgical day number 2 Patient is awake, alert, and oriented 3 Vital signs stable Good chest excursion with deep inspiration and expiration Dorsiflexion, plantarflexion, and extensor hallucis longus positive sustained bilaterally No signs or symptoms of DVT; no calf pain; pneumatic cuffs intact bilateral lower extremities Optifoam dressings are clean, dry, and intact over the lumbar spine and right iliac crest; no erythema, purulence, or signs of infection Neurovascularly intact bilaterally lower extremities Norman catheter has been discontinued Assessment: Status post L5-S1 minimally invasive posterior lateral decompression and fusion with transforaminal lumbar interbody fusion Low back pain L5-S1 herniated nucleus pulposus with extruded fragment L5-S1 severe spinal stenosis L5-S1 degenerative disc disease Lower extremity radiculopathy Lower extremity weakness Lumbar facet arthrosis Hypokalemia, improved Type 2 diabetes Hypertension Hyperlipidemia obesity Plan: 1. Ambulate as tolerated; work with Physical Therapy to increase mobilization 2. Continue pain control with IV and oral medications; she has had significant improvement of her symptoms as compared to yesterday. She may continue with oral hydrocodone and cyclobenzaprine as prescribed as needed for pain control. We will wean her off of IV Dilaudid in anticipation for discharge home tomorrow. MAPS has been reviewed today, 08/14/2023. An "Opiod Start Talking" Form has been signed and placed in the patient's chart. A prescription has been written for hydrocodone 7.5 mg / 325 mg, 1 tab, every 4 hours as needed for acute pain, dispense #42. Prescription also written for cyclobenzaprine 10 mg, 1 tab, 3 times daily, as needed for muscle spasm, dispense #60. Prescription written for Senokot-S, 1 tab, twice daily, as needed for constipation, dispense #60. Prescriptions are sent to the patient's pharmacy per request of the patient. 3. Dressings to remain intact with Optifoam; patient may shower with dressings intact 4. Prescription is written, signed, and provided to case management to obtain a 2 wheeled walker. 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 5. Medical management can continue to manage patient for patient's other medical diagnoses including hypokalemia, type 2 diabetes, hypertension, and hyperlipidemia 6. We will continue to follow the patient closely; depending on the patient's progress, we may plan for discharge her tomorrow, 08/15/2023 7. Patient can follow-up with Wilbert Hines PA-C or Dr. González Mark at [facility] in 2-3 weeks following discharge The patient was seen and examined today at bedside. She is feeling much better today than she was yesterday. She is still requiring regular IV pain medications. She is mobilizing well and peeing well. I think that we can continue to wean her IV pain medications and transition her to orals so that she should be okay for discharge tomorrow.
[2023-08-14 12:41] LABS: Glucose,Whole Blood 228 mg/dL (70-110)
--- NOTE | 2023-08-14 13:21 | P.PN ---
Subjective Progress Note Date: 08/14/23 Patient has no new complaints.. Pt is medically stable for discharge Gen: In NAD, non-toxic HEENT: normocephalic, atraumatic, hearing acuity is intant, mucous membranes moist CVS: perfusing all extremities well, no pitting edema, Respiratory: symmetric chest expansion, no accessory muscle use, GI: soft, NTTP, ND, : no suprapubic tenderness, no CVA tenderness MSK/Derm: no rashes, cyanosis Neuro: CN II-XII intact, no motor weakness, Psych: cooperative, euthymic mood, judgment and insight is intact Hospital course: Patient is a 47-year-old female with a PMH of hypertension, type II DM, hyperl ipidemia, who was admitted for an elective lumbosacral laminectomy and fusion. The patient underwent the procedure and was seen postoperatively on the surgical unit. Assessment: Hypokalemia Chronic conditions: Type II DM, hypertension, hyperlipidemia Status post lumbosacral laminectomy and fusion Data Review: Laboratory evaluation was reviewed with sodium 136, potassium 2.8, CO2 31, BUN 18, creatinine 0.53, glucose 118. Plan: Replace potassium and monitor Insulin sliding scale and blood glucose monitoring, resume home insulin levemir 12U Daily Resume home Lopressor, losartan, Lipitor Defer resumption of aspirin along with pain control and DVT prophylaxis to primary surgery service Patient is medically stable for discharge, recommend discontinuing hydrochlorothiazide given hypokalemia and borderline low BPs, and following up outpatient for titration of blood pressure medication We appreciate this opportunity to be involved in this patient's care. We will follow the patient with you. For any further questions, please not hesitate to contact the sound inpatient team. Objective - Vital Signs Vital signs: Vital Signs Temp 98.0 F 08/14/23 08:00 Pulse 95 08/14/23 08:00 Resp 18 08/14/23 08:00 BP 110/72 08/14/23 08:00 Pulse Ox 92 L 08/14/23 08:00 FiO2 Intake & Output 08/13/23 08/14/23 08/14/23 18:59 06:59 18:59 Output Total 875 Balance -875 Output: Urine 875 Other: Voiding Method Toilet Toilet Toilet # Voids 2 1 - Labs CBC & Chem 7: 08/13/23 07:25 08/13/23 07:25 Labs: Abnormal Lab Results - Last 24 Hours (Table) 08/13/23 08/13/23 08/13/23 Range/Units 07:25 17:21 20:12 RBC 3.98 L (4.10-5.20) X 10*6/uL Hgb 11.7 L (12.0-15.0) g/dL Hct 34.5 L (37.2-46.3) % Eosinophils # 0.03 L (0.04-0.35) X 10*3/uL POC Glucose (mg/dL) 256 H 245 H (70-110) mg/dL 08/14/23 08/14/23 Range/Units 07:22 12:40 RBC (4.10-5.20) X 10*6/uL Hgb (12.0-15.0) g/dL Hct (37.2-46.3) % Eosinophils # (0.04-0.35) X 10*3/uL POC Glucose (mg/dL) 174 H 228 H (70-110) mg/dL
[2023-08-14 16:58] LABS: Glucose,Whole Blood 223 mg/dL (70-110)
[2023-08-14 20:01] LABS: Glucose,Whole Blood 198 mg/dL (70-110)
[2023-08-15 07:17] LABS: Glucose,Whole Blood 151 mg/dL (70-110)
--- NOTE | 2023-08-15 10:14 | P.DS ---
Providers Date of admission: 08/13/23 11:25 Attending physician: Shabnam Mark Consults: 08/12/23 10:01 Consult Physician Routine Consulting Provider: Jamal Jung Consult Reason/Comments: Medical management Do you want consulting provider notified?: Yes Primary care physician: Jose Angel Aguillon MD Hospital Course: The patient presented on the day of admission as per their operative note. She had a large disc herniation L5-S1 with severe radiculopathy and stenosis. Patient underwent minimally invasive decompression fusion and did well with her procedure. She feels her leg is doing better. She has been managing her pain adequately and it is improving readily and she is mobilizing better. Physical Exam The incision site is clean dry and intact. There is no erythema no drainage. There is no purulence no evidence of infection. There is no drainage on the dressing. It appears to be clean and healing well. Abdomen soft and nontender. Chest has good excursion with deep inspiration and expiration. The patient has active and passive range of motion intact at the upper and lower extremities. There is no acute change in neurologic status. She has sustained dorsiflexion motor flexion EHL intact Hospital Course Postoperative day #3 status post minimally invasive decompression fusion L5-S1 for her disc herniation with stenosis and lower extreme radiculopathy. The patient has been making good progress postoperatively. She feels he is making good progress in her legs and she feels stronger in her legs already. They have completed the prophylactic antibiotics without any signs or symptoms of infection. The patient has been able to advance their diet, and is tolerating diet adequately. The pain was initially controlled with IV medications and is now controlled appropriately with oral medications. She feels her pain is getting better and she is mobilizing better. She is voiding freely and tolerating her diet. The patient has been able to increase their mobilization. The patient has progressed appropriately. I think they are in good stable condition for discharge today. They will be sent home with appropriate prescriptions. I answered their questions to the best of my ability in a language that they can understand and they are agreeable with the plan. They will follow up as directed. Patient Condition at Discharge: Good Plan - Discharge Summary Discharge Rx Participant: No New Discharge Prescriptions: New Cyclobenzaprine [Flexeril] 10 mg PO TID PRN #60 tab PRN Reason: Muscle Spasm HYDROcodone/APAP 7.5-325MG [[place] 7.5-325] 1 each PO Q4HR PRN #42 tab PRN Reason: Pain Sennosides-Docusate Sodium [Senokot-S] 1 tab PO BID PRN #60 tablet PRN Reason: Constipation Continue Losartan [Cozaar] 50 mg PO BID DULoxetine HCL [Cymbalta] 20 mg PO DAILY Pioglitazone [Actos] 30 mg PO DAILY Nitroglycerin Sl Tabs [Nitrostat] 0.4 mg SL Q5M PRN PRN Reason: Chest Pain Insulin Glargine,Hum.rec.anlog [Lantus Solostar Pen] 12 units SQ DAILY@1430 Atorvastatin [Lipitor] 80 mg PO HS #90 tab Liraglutide [Victoza 3-Louis] 1.8 mg SQ DAILY@1430 Metoprolol Tartrate [Lopressor] 50 mg PO DAILY metFORMIN HCL ER [Glucophage XR] 500 mg PO BID Aspirin [Adult Low Dose Aspirin EC] 81 mg PO DAILY Discontinued hydroCHLOROthiazide [Hydrodiuril] 50 mg PO DAILY Discharge Medication List DULoxetine HCL [Cymbalta] 20 mg PO DAILY 10/28/21 [History] Losartan [Cozaar] 50 mg PO BID 10/28/21 [History] Atorvastatin [Lipitor] 80 mg PO HS #90 tab 10/31/21 [Rx] Liraglutide [Victoza 3-Louis] 1.8 mg SQ DAILY@1430 12/27/21 [History] Insulin Glargine,Hum.rec.anlog [Lantus Solostar Pen] 12 units SQ DAILY@1430 05/30/23 [History] Metoprolol Tartrate [Lopressor] 50 mg PO DAILY 05/30/23 [History] Nitroglycerin Sl Tabs [Nitrostat] 0.4 mg SL Q5M PRN 05/30/23 [History] Pioglitazone [Actos] 30 mg PO DAILY 05/30/23 [History] metFORMIN HCL ER [Glucophage XR] 500 mg PO BID 05/30/23 [History] Aspirin [Adult Low Dose Aspirin EC] 81 mg PO DAILY 08/07/23 [History] Cyclobenzaprine [Flexeril] 10 mg PO TID PRN #60 tab 08/14/23 [Rx] HYDROcodone/APAP 7.5-325MG [[place] 7.5-325] 1 each PO Q4HR PRN #42 tab 08/14/23 [Rx] Sennosides-Docusate Sodium [Senokot-S] 1 tab PO BID PRN #60 tablet 08/14/23 [Rx] Follow up Appointment(s)/Referral(s): [facility] [NON-STAFF] - 1 Week Wilbert Hines PAC [PHYSICIAN LANDSCAPING SPECIALIST] - 2 Weeks (Patient may follow-up with Wilbert Hines PA-C or Dr. González Mark at [facility] in 2-3 weeks following discharge. ) Activity/Diet/Wound Care/Special Instructions: 1. Patient may shower with Optifoam dressing intact. 2. Patient may remove Optifoam dressing in 3 days and shower without a dressing at that time. 3. Patient should refrain from driving until at least after their first follow- up appointment in the office. 4. Patient should avoid excessive bending, twisting, lifting; avoid overhead lifting; no lifting greater than 10 pounds 5. Take medications as prescribed 6. Patient may utilize walker to aid in ambulation as needed 7. Patient should avoid anti-inflammatory medications over the next 6 weeks postoperatively 8. Do not soak in tub
[2023-08-15 12:12] LABS: Glucose,Whole Blood 192 mg/dL (70-110)
[2023-08-15 14:09] VITALS: BP 97/59; PULSE 71; RESP 17; TEMP 97.4
== END 2023-08-15 14:46 | disposition home or self-care (01) ==
LOC: OR 06:16 → 5NMEDONC 10:05 → OR 08-13 11:25
PROVIDERS: ADMIT Orthopaedic Surgery Orthopaedic Surgery of the Spine; ATTEND Orthopaedic Surgery Orthopaedic Surgery of the Spine
DX: M51.17 Intervertebral disc disorders with radiculopathy, lumbosacral region (principal); E87.6 Hypokalemia; I10 Essential (primary) hypertension; E78.5 Hyperlipidemia, unspecified; E11.40 Type 2 diabetes mellitus with diabetic neuropathy, unspecified; I25.10 Atherosclerotic heart disease of native coronary artery without angina pectoris; E66.9 Obesity, unspecified; Z68.34 Body mass index [BMI] 34.0-34.9, adult; Z95.5 Presence of coronary angioplasty implant and graft; Z79.4 Long term (current) use of insulin; Z79.82 Long term (current) use of aspirin; Z79.84 Long term (current) use of oral hypoglycemic drugs; Z79.899 Other long term (current) drug therapy
CPT/HCPCS: 96376 ×4; 96361 ×2; 96365; 96366; 96367; 96375; 97530; 97162; 81025; 80048 ×2; 84132; 85025; 72100; 22612; 22853; 20931; 20936; G0378 ×3; C1713 ×2; C1762; J2250; J0330; J2710; J0690 ×3; J2405; J2001; J3010; J1170 ×5; J3480; J1885; J2704; J2371

== ENCOUNTER 2023-09-28 15:47 | Inpatient (IN) | payer BC ==
--- NOTE | 2023-09-28 16:13 | ED ---
Back Pain HPI - General Source: patient, RN notes reviewed Mode of arrival: ambulatory Limitations: no limitations - History of Present Illness Complaint: back pain <Rubi Clements - Last Filed: 09/28/23 16:10> <Kathy Cohen - Last Filed: 09/28/23 21:22> - General Chief Complaint: Back Pain/Injury Stated Complaint: post op infection, fever, back pain Time Seen by Provider: 09/28/23 16:10 - History of Present Illness Initial Comments: Quick Note: This is a 47-year-old female who presents to the emergency department for concerns of a postop infection. Patient had back surgery about [address] Mark and states that one of the incisions on the left lower back seems to be getting infected. She was started on Keflex yesterday and states that today she started to develop fevers and increasing pain. (Rubi Clements) 47-year-old female presenting with chief complaint of suspected surgical site infection. Patient had a lumbar fusion with Dr. Purvis on 08/11. She had thought that the incision had completely healed and has gone in a hot tub and swimming pool since then. Yesterday she started to experience some pain and swelling near the site. Today this pain and swelling has increased. She was told that she has redness to the area as well. She is febrile today. Admits to nausea and bodyaches. No loss of bowel or bladder control or saddle paresthesia. (Kathy Cohen) - Related Data Home Medications Medication Instructions Recorded Confirmed DULoxetine HCL [Cymbalta] 20 mg PO DAILY 10/28/21 09/28/23 Losartan [Cozaar] 50 mg PO BID 10/28/21 09/28/23 Liraglutide [Victoza 3-Louis] 1.8 mg SQ DAILY@1430 12/27/21 09/28/23 Insulin Glargine,Hum.rec.anlog 12 units SQ DAILY@1430 05/30/23 09/28/23 [Lantus Solostar Pen] Nitroglycerin Sl Tabs [Nitrostat] 0.4 mg SL Q5M PRN 05/30/23 09/28/23 Pioglitazone [Actos] 30 mg PO DAILY 05/30/23 09/28/23 metFORMIN HCL ER [Glucophage XR] 1,000 mg PO W/SUPPER 05/30/23 09/28/23 Aspirin [Adult Low Dose Aspirin EC] 81 mg PO DAILY 08/07/23 09/28/23 Cephalexin [Keflex] 500 mg PO Q6H 09/28/23 09/28/23 Fish Oil/Dha/Epa [Fish Oil 1,200 1 cap PO DAILY 09/28/23 09/28/23 mg Fish Oil] HYDROcodone/APAP 7.5-325MG [[place] 1 tab PO Q4HR PRN 09/28/23 09/28/23 7.5-325] Metoprolol Tartrate [Lopressor] 50 mg PO BID 09/28/23 09/28/23 hydroCHLOROthiazide [Hydrodiuril] 50 mg PO DAILY 09/28/23 09/28/23 Previous Rx's Medication Instructions Recorded Atorvastatin [Lipitor] 80 mg PO HS #90 tab 10/31/21 Cyclobenzaprine [Flexeril] 10 mg PO TID PRN #60 tab 08/14/23 Allergies Allergy/AdvReac Type Severity Reaction Status Date / Time No Known Allergies Allergy Verified 09/28/23 19:48 Review of Systems ROS Other: All systems not noted in ROS Statement are negative. <Rubi Clements - Last Filed: 09/28/23 16:10> ROS Other: All systems not noted in ROS Statement are negative. <Kathy Cohen - Last Filed: 09/28/23 21:22> ROS Statement: Those systems with pertinent positive or pertinent negative responses have been documented in the HPI. Past Medical History Past Medical History: Coronary Artery Disease (CAD), Diabetes Mellitus, Hyperlipidemia, Hypertension, Rheumatoid Arthritis (RA), Skin Disorder Additional Past Medical History / Comment(s): Neuropathy in feet. Psoriatic arthritis and psoriasis. History of Any Multi-Drug Resistant Organisms: None Reported Past Surgical History: Heart Catheterization With Stent Additional Past Surgical History / Comment(s): D&C X2, Pain Clinic Procedure. Past Anesthesia/Blood Transfusion Reactions: Family History of Problems w/ Anesthesia Additional Past Anesthesia/Blood Transfusion Reaction / Comment(s): Sister could hear and feel everything during surgery. Date of Last Stent Placement:: 10/28/21 Past Psychological History: No Psychological Hx Reported Smoking Status: Never smoker Past Alcohol Use History: Rare Past Drug Use History: Marijuana Additional Drug Use History / Comment(s): Marijuana gummies for pain. Aware no use 24 hrs prior to procedure. - Past Family History Mother Family Medical History: Cancer Additional Family Medical History / Comment(s): Lung cancer - at age 39. Father Family Medical History: Cancer Additional Family Medical History / Comment(s): Committed suicide 5 years ago. <Rubi Clements - Last Filed: 09/28/23 16:10> General Exam <Rubi Clements - Last Filed: 09/28/23 16:10> Limitations: no limitations General appearance: alert, in no apparent distress Head exam: Present: atraumatic, normocephalic Eye exam: Present: normal appearance, EOMI Neck exam: Present: normal inspection. Absent: meningismus Respiratory exam: Absent: respiratory distress Cardiovascular Exam: Present: regular rate Back exam: Present: tenderness, other (Erythema and swelling noted over surgical site) Neurological exam: Present: alert, oriented X3 Psychiatric exam: Present: normal affect, normal mood <Kathy Cohen - Last Filed: 09/28/23 21:22> - General Exam Comments Initial Comments: Visual Physical Exam Vital signs reviewed General: Well-appearing, nontoxic, no acute distress. Head: Normocephalic, atraumatic Eyes: PERRLA, EOMI ENT: Airway patent Chest: Nonlabored breathing Skin: No visual rash, normal skin tone Neuro: Alert and oriented 3 Musculoskeletal: No gross abnormalities (Rubi Clements) Course Vital Signs 09/28/23 09/28/23 09/28/23 16:47 19:06 20:06 Temperature 101.5 F H 100.2 F H Pulse Rate 90 85 78 Respiratory 16 16 18 Rate Blood Pressure 122/79 99/59 124/74 O2 Sat by Pulse 97 95 98 Oximetry 09/28/23 21:12 Temperature 98.2 F Pulse Rate 73 Respiratory 18 Rate Blood Pressure 118/71 O2 Sat by Pulse 99 Oximetry Medical Decision Making <Rubi Clements - Last Filed: 09/28/23 16:10> - Lab Data Result diagrams: 09/28/23 17:06 09/28/23 17:06 <Kathy Cohen - Last Filed: 09/28/23 21:22> - Medical Decision Making I performed the QuickNote portion of this chart. Signed Rubi Clements PA-C. (Rubi Clements) Was pt. sent in by a medical professional or institution ([facility] Diego, IT SOFTWARE DEVELOPER, urgent c are, hospital, or jail...) When possible be specific @ -No Did you speak to anyone other than the patient for history (EMS, parent, family, police, friend...)? What history was obtained from this source @ -No Did you review nursing and triage notes (agree or disagree)? Why? @ -I reviewed and agree with nursing and triage notes Were old charts reviewed (outside hosp., previous admission, EMS record, old EKG, old radiological studies, urgent care reports/EKG's, jail records)? Report findings @ -No old charts were reviewed Differential Diagnosis (chest pain, altered mental status, abdominal pain women, abdominal pain men, vaginal bleeding, weakness, fever, dyspnea, syncope, headache, dizziness, GI bleed, back pain, seizure, CVA, palpatations, mental health, musculoskeletal)? @ - MDM Differential Back Pain: Strain, zoster, cauda equina syndrome, epidural abscess, vertebral osteomyelitis, discitis, fracture, subluxation, disc herniation, DJD, spinal stenosis, dissection, AAA, pancreatitis, peptic ulcer disease, pyelonephritis, kidney stone this is not meant to be an all-inclusive list. EKG interpreted by me (3pts min.). @ -As above X-rays interpreted by me (1pt min.). @ -None done CT interpreted by me (1pt min.). @ -CT shows subcutaneous fluid collections in the surgical bed given clinical history of redness findings suspicious for abscess/cellulitis. Surgical consultation recommended. No evidence for spinal fracture. Postsurgical changes with hardware intact. Nonobstructing left renal calculi. U/S interpreted by me (1pt. min.). @ -None done What testing was considered but not performed or refused? (CT, X-rays, U/S, labs)? Why? @ -None What meds were considered but not given or refused? Why? @ -None Did you discuss the management of the patient with other professionals (professionals i.e. DAW[facility] Diego, IT SOFTWARE DEVELOPER, lab, RT, psych nurse, perinatal social worker, electric motor winder, teacher, retail loss prevention officer, manager rn case)? Give summary @ -I spoke with Dr. Shell who instructed me to admit the patient under her surgeon Dr. Mark and he will make his colleague aware Was smoking cessation discussed for >3mins.? @ -No Was critical care preformed (if so, how long)? @ -No Were there social determinants of health that impacted care today? How? (Homelessness, low income, unemployed, alcoholism, drug addiction, transportation, low edu. Level, literacy, decrease access to med. care, long term, rehab)? @ -No Was there de-escalation of care discussed even if they declined (Discuss DNR or withdrawal of care, Hospice)? DNR status @ -No What co-morbidities impacted this encounter? (DM, HTN, Smoking, COPD, CAD, Cancer, CVA, ARF, Chemo, Hep., AIDS, mental health diagnosis, sleep apnea, morbid obesity)? @ -None Was patient admitted / discharged? Hospital course, mention meds given and route, prescriptions, significant lab abnormalities, going to OR and other pertinent info. @ -47-year-old female presenting with chief complaint of redness tenderness swelling to the back as well as fever. She had a recent spinal fusion with Dr. Purvis on August 11. White count is 14.2 and CRP is elevated at 6.8. CT shows fluid collection in the surgical bed suspicious for cellulitis/abscess. Patient was started on vancomycin, metronidazole, and ceftazidime. She will be admitt ed under her surgeon. She is informed of these results and agreeable with this plan. I discussed this case with my attending Dr. Syed. Undiagnosed new problem with uncertain prognosis? @ -No Drug Therapy requiring intensive monitoring for toxicity (Heparin, Nitro, Insulin, Cardizem)? @ -No Were any procedures done? @ -No Diagnosis/symptom? @ -Postoperative infection Acute, or Chronic, or Acute on Chronic? @ -Acute Uncomplicated (without systemic symptoms) or Complicated (systemic symptoms)? @ -Complicated Side effects of treatment? @ -No Exacerbation, Progression, or Severe Exacerbation? @ -No Poses a threat to life or bodily function? How? (Chest pain, USA, OR, pneumonia, PE, COPD, DKA, ARF, appy, cholecystitis, CVA, Diverticulitis, Homicidal, Suicidal, threat to staff... and all critical care pts) @ -Yes (Kathy Cohen) - Lab Data Lab Results 09/28/23 09/28/23 09/28/23 Range/Units 17:06 17:06 17:06 WBC 14.2 H (3.8-10.6) k/uL RBC 4.60 (3.80-5.40) m/uL Hgb 13.8 (11.4-16.0) gm/dL Hct 41.8 (34.0-46.0) % MCV 91.0 (80.0-100.0) fL MCH 30.0 (25.0-35.0) pg MCHC 33.0 (31.0-37.0) g/dL RDW 12.7 (11.5-15.5) % Plt Count 254 (150-450) k/uL MPV 7.5 Neutrophils % 87 % Lymphocytes % 6 % Monocytes % 4 % Eosinophils % 1 % Basophils % 0 % Neutrophils # 12.4 H (1.3-7.7) k/uL Lymphocytes # 0.9 L (1.0-4.8) k/uL Monocytes # 0.6 (0-1.0) k/uL Eosinophils # 0.1 (0-0.7) k/uL Basophils # 0.1 (0-0.2) k/uL Sodium 130 L (137-145) mmol/L Potassium 3.6 (3.5-5.1) mmol/L Chloride 97 L (98-107) mmol/L Carbon Dioxide 24 (22-30) mmol/L Anion Gap 9 mmol/L BUN 21 H (7-17) mg/dL Creatinine 0.59 (0.52-1.04) mg/dL Est GFR (CKD-EPI)AfAm >90 (>60 ml/min/1.73 sqM) Est GFR (CKD-EPI)NonAf >90 (>60 ml/min/1.73 sqM) Glucose 237 H (74-99) mg/dL Plasma Lactic Acid Pedro 1.8 (0.7-2.0) mmol/L Calcium 9.3 (8.4-10.2) mg/dL Total Bilirubin 0.9 (0.2-1.3) mg/dL AST 22 (14-36) U/L ALT 30 (4-34) U/L Alkaline Phosphatase 101 (38-126) U/L C-Reactive Protein 6.8 H (<1.0) mg/dL Total Protein 6.6 (6.3-8.2) g/dL Albumin 4.1 (3.5-5.0) g/dL HCG, Qual Not Detected Urine Color Urine Appearance (Clear) Urine pH (5.0-8.0) Ur Specific [place] (1.001-1.035) Urine Protein (Negative) Urine Glucose (UA) (Negative) Urine Ketones (Negative) Urine Blood (Negative) Urine Nitrite (Negative) Urine Bilirubin (Negative) Urine Urobilinogen (<2.0) mg/dL Ur Leukocyte Esterase (Negative) Urine HCG, Qual (Not Detectd) 09/28/23 09/28/23 Range/Units 17:06 17:06 WBC (3.8-10.6) k/uL RBC (3.80-5.40) m/uL Hgb (11.4-16.0) gm/dL Hct (34.0-46.0) % MCV (80.0-100.0) fL MCH (25.0-35.0) pg MCHC (31.0-37.0) g/dL RDW (11.5-15.5) % Plt Count (150-450) k/uL MPV Neutrophils % % Lymphocytes % % Monocytes % % Eosinophils % % Basophils % % Neutrophils # (1.3-7.7) k/uL Lymphocytes # (1.0-4.8) k/uL Monocytes # (0-1.0) k/uL Eosinophils # (0-0.7) k/uL Basophils # (0-0.2) k/uL Sodium (137-145) mmol/L Potassium (3.5-5.1) mmol/L Chloride (98-107) mmol/L Carbon Dioxide (22-30) mmol/L Anion Gap mmol/L BUN (7-17) mg/dL Creatinine (0.52-1.04) mg/dL Est GFR (CKD-EPI)AfAm (>60 ml/min/1.73 sqM) Est GFR (CKD-EPI)NonAf (>60 ml/min/1.73 sqM) Glucose (74-99) mg/dL Plasma Lactic Acid Pedro (0.7-2.0) mmol/L Calcium (8.4-10.2) mg/dL Total Bilirubin (0.2-1.3) mg/dL AST (14-36) U/L ALT (4-34) U/L Alkaline Phosphatase (38-126) U/L C-Reactive Protein (<1.0) mg/dL Total Protein (6.3-8.2) g/dL Albumin (3.5-5.0) g/dL HCG, Qual Urine Color Colorless Urine Appearance Clear (Clear) Urine pH 5.0 (5.0-8.0) Ur Specific [place] 1.021 (1.001-1.035) Urine Protein Negative (Negative) Urine Glucose (UA) 4+ H (Negative) Urine Ketones 2+ H (Negative) Urine Blood Negative (Negative) Urine Nitrite Negative (Negative) Urine Bilirubin Negative (Negative) Urine Urobilinogen <2.0 (<2.0) mg/dL Ur Leukocyte Esterase Negative (Negative) Urine HCG, Qual Not Detected (Not Detectd) Disposition <Rubi Clements - Last Filed: 09/28/23 16:10> Time of Disposition: 19:30 <Kathy Cohen - Last Filed: 09/28/23 21:22> Clinical Impression: Post op infection Disposition: ADMITTED IP TO THIS HOSP Condition: Fair
[2023-09-28 17:25] LABS: Basophils # (A) 0.1 k/uL (0-0.2); Basophils % (A) 0 %; Eosinophils # (A) 0.1 k/uL (0-0.7); Eosinophils % (A) 1 %; HCT 41.8 % (34.0-46.0); HGB 13.8 gm/dL (11.4-16.0); Lymphocytes # (A) 0.9 k/uL (1.0-4.8); Lymphocytes % (A) 6 %; Mean Platelet Volume 7.5; Monocytes # (A) 0.6 k/uL (0-1.0); Monocytes % (A) 4 %; Neutrophils # (A) 12.4 k/uL (1.3-7.7); Neutrophils % (A) 87 %; Platelet Count 254 k/uL (150-450); RDW 12.7 % (11.5-15.5); WBC 14.2 k/uL (3.8-10.6)
[2023-09-28 17:28] LABS: Appearance,Urine Clear (Clear); Bilirubin,Urine Negative (Negative); Blood,Urine Negative (Negative); Color,Urine Colorless; Glucose,Urine (UA) 4+ (Negative); Leukocyte Esterase,Urine Negative (Negative); Nitrite,Urine Negative (Negative); Protein,Urine Negative (Negative); Specific Gravity,Urine 1.021 (1.001-1.035); Urobilinogen,Urine <2.0 mg/dL (<2.0)
[2023-09-28 17:47] LABS: HCG,Qualitative Serum Not Detected
[2023-09-28] MEDS: ACETAMINOPHEN TAB 500 MG TAB PO STA (17:49)
[2023-09-28 17:50] LABS: ALT 30 U/L (4-34); AST 22 U/L (14-36); African American GFR (CKD) >90 (>60 ml/min/1.73 sqM); Albumin 4.1 g/dL (3.5-5.0); Alkaline Phosphatase 101 U/L (38-126); Anion Gap 9 mmol/L; Blood Urea Nitrogen 21 mg/dL (7-17); C Reactive Protein 6.8 mg/dL (<1.0); Calcium 9.3 mg/dL (8.4-10.2); Carbon Dioxide 24 mmol/L (22-30); Chloride 97 mmol/L (98-107); Glucose 237 mg/dL (74-99); Non-African American GFR(CKD) >90 (>60 ml/min/1.73 sqM); Potassium 3.6 mmol/L (3.5-5.1); Sodium 130 mmol/L (137-145); Total Bilirubin 0.9 mg/dL (0.2-1.3); Total Protein 6.6 g/dL (6.3-8.2)
[2023-09-28] MEDS ORDERED: MORPHINE SULFATE 4 MG/ML SYRINGE IVP PRN (17:52)
[2023-09-28 17:56] LABS: Ketones,Urine 2+ (Negative)
--- NOTE | 2023-09-28 19:00 | CT ---
EXAMINATION TYPE: CT lumbar spine w con CT DLP: 1441.6 mGycm, Automated exposure control for dose reduction was used. DATE OF EXAM: 09/28/2023 6:50 PM COMPARISON: None. CLINICAL INDICATION:Female, 47 years old with history of postop infection, recent lumbar fusion; [facility], Lumbar fusion x 6 weeks ago. Redness and swelling x 4 weeks. States that redness and swelling has be en spreading. TECHNIQUE: Multiple axial images were obtained from the midportion of T11 through the sacroiliac aden nts. Soft tissue and bone windows in coronal and sagittal planes were obtained and reviewed. 3-D ref ormats of the bones were created on a separate workstation and submitted for review. Contrast used:100 ml mL of Isovue 300 with IV Contrast, (None, if empty). Oral contrast used: (None, if empty). FINDINGS: Alignment: There are 5 lumbar type vertebral bodies within normal alignment. Bone: Fixation hardware L5-S1 with hardware in place. Hardware appears intact. Discectomy at L5-S1. M IP changes at L5. There is fat stranding changes in the surgical bed. Fluid collection present left g reater than right measuring at least 30 mm x 30 and on the right measuring 20 x 11 mm Discs: T12-L1: No spinal canal or neural foraminal stenosis is identified. L1-L2: No spinal canal or neural foraminal stenosis is identified. L2-L3: No spinal canal or neural foraminal stenosis is identified. L3-L4: No spinal canal or neural foraminal stenosis is identified. L4-L5: No spinal canal or neural foraminal stenosis is identified. L5-S1: No spinal canal or neural foraminal stenosis is identified. Other: Nonobstructing left renal calculi measuring up to 3 mm. IMPRESSION: 1. Subcutaneous fluid collections in the surgical bed given clinical history of redness findings merle picious abscess/cellulitis. Surgical consultation recommended. 2. No evidence for spinal fracture. 3. Post surgical changes with hardware intact. 4. Nonobstructing left renal calculi.
[2023-09-28] MEDS ORDERED: VANCOMYCIN IV PER PHARMACY 1 EACH MISC MISCELLANE PRN (19:07)
[2023-09-28] MEDS ORDERED: NALOXONE 0.4 MG/ML 1 ML VIAL IV PRN (19:26)
[2023-09-28] MEDS ORDERED: ACETAMINOPHEN TAB 325 MG TAB PO PRN (19:28)
[2023-09-28] MEDS ORDERED: IBUPROFEN 400 MG TAB PO PRN (19:28)
[2023-09-28] MEDS: SODIUM CHLORIDE 0.9% 1,000 ML IV ONE (20:06)
[2023-09-28] MEDS: metroNIDAZOLE-NS PMX 500 MG in SALINE 1 100ML.BAG IVPB STA (21:10)
[2023-09-28] MEDS ORDERED: NITROGLYCERIN SL TABS 0.4 MG TAB SUBLINGUAL PRN (21:32)
--- NOTE | 2023-09-28 21:45 | P.CNOR ---
History of Present Illness - HPI Consult date: 09/28/23 Consult reason: other History of present illness: Patient is a very pleasant 47-year-old female who is well-known to our service. Patient has significant history of lumbar issues with stenosis and listhesis with lower extreme radiculopathy. Patient had undergone extensive conservative treatment however had not been making a progress and ultimately underwent posterior lumbar minimally invasive decompression and fusion at L5-S1 with our service on August 12, 2023. She did well postoperatively and made good progress and was able to be discharged home without any incident. She had continued to make progress and we saw her at her 2-week postop follow-up visit. She was doing well at that point and she was having good evidence of healing with stable hardware. She was not having any troubles with her surgical incision sites and they appear to be healing well. She was able to mobilize and was diminishing h er pain as well as her need for significant medications. She was still taking occasional medications. The patient continues to do well and was actually vacationing this back with [facility] and [place]. She felt good enough to be involved in a number of her activities. She felt that her incisions were doing well and she was comfortable getting into the hot tub. She is that 2 days in a row but noticed some initiating erythema around her incision site particular on the left. She notified our office yesterday and was started on oral antibiotics. She started the oral antibiotics yesterday but was having some worsening today where she felt it was more red a little bit more swollen and she was having fevers. She presented to the emergency room. She denied having new changes in her lower extremities. She still has some residual sciatica type symptoms but that has been stable. She is not having new numbness tingling or change in bowel bladder function. In the emergency room she started on a number of IV antibiotics. She is remained afebrile but she had elevated labs. Review of Systems As stated per HPI. She has no new numbness tingling or weakness in her lower extremities. No change in bowel bladder function. She did have fever yesterday and this morning and presented to the emergency room. She denies any nausea or vomiting. She denies any new trauma. She was involved in being in a hot tub 2 days in a row at [place]. That is when her issues started around the wound. She is not having any wound issues prior to that. Past Medical History Past Medical History: Coronary Artery Disease (CAD), Diabetes Mellitus, Hyperlipidemia, Hypertension, Rheumatoid Arthritis (RA), Skin Disorder Additional Past Medical History / Comment(s): 6 weeks postop minimally invasive decompression fusion L5-S1 done on August 12, 2023 for her severe stenosis with listhesis and lower extreme radiculopathy. neuropathy in feet. Psoriatic arthritis and psoriasis. History of Any Multi-Drug Resistant Organisms: None Reported Past Surgical History: Heart Catheterization With Stent Additional Past Surgical History / Comment(s): D&C X2, [facility] Procedure. Spinal fusion 08/12/23 Past Anesthesia/Blood Transfusion Reactions: Family History of Problems w/ Anesthesia Additional Past Anesthesia/Blood Transfusion Reaction / Comm: Sister could hear and feel everything during surgery. Date of Last Stent Placement:: 10/28/21 Past Psychological History: No Psychological Hx Reported Smoking Status: Never smoker Past Alcohol Use History: Rare Past Drug Use History: Marijuana - Past Family History Mother Family Medical History: Cancer Additional Family Medical History / Comment(s): Lung cancer - at age 39. Father Family Medical History: Cancer Additional Family Medical History / Comment(s): Committed suicide 5 years ago. Medications and Allergies Home Medications Medication Instructions Recorded Confirmed Type DULoxetine HCL [Cymbalta] 20 mg PO DAILY 10/28/21 09/28/23 History Losartan [Cozaar] 50 mg PO BID 10/28/21 09/28/23 History Atorvastatin [Lipitor] 80 mg PO HS #90 tab 10/31/21 09/28/23 Rx Liraglutide [Victoza 3-Louis] 1.8 mg SQ DAILY@1430 12/27/21 09/28/23 History Insulin Glargine,Hum.rec.anlog 12 units SQ DAILY@1430 05/30/23 09/28/23 History [Lantus Solostar Pen] Nitroglycerin Sl Tabs [Nitrostat] 0.4 mg SL Q5M PRN 05/30/23 09/28/23 History Pioglitazone [Actos] 30 mg PO DAILY 05/30/23 09/28/23 History metFORMIN HCL ER [Glucophage XR] 1,000 mg PO W/SUPPER 05/30/23 09/28/23 History Aspirin [Adult Low Dose Aspirin EC] 81 mg PO DAILY 08/07/23 09/28/23 History Cyclobenzaprine [Flexeril] 10 mg PO TID PRN #60 tab 08/14/23 09/28/23 Rx Cephalexin [Keflex] 500 mg PO Q6H 09/28/23 09/28/23 History Fish Oil/Dha/Epa [Fish Oil 1,200 1 cap PO DAILY 09/28/23 09/28/23 History mg Fish Oil] HYDROcodone/APAP 7.5-325MG [[place] 1 tab PO Q4HR PRN 09/28/23 09/28/23 History 7.5-325] Metoprolol Tartrate [Lopressor] 50 mg PO BID 09/28/23 09/28/23 History hydroCHLOROthiazide [Hydrodiuril] 50 mg PO DAILY 09/28/23 09/28/23 History Allergies Allergy/AdvReac Type Severity Reaction Status Date / Time No Known Allergies Allergy Verified 09/28/23 19:48 Physical Examination Osteopathic Statement: *. No significant issues noted on an osteopathic structural exam other than those noted in the History and Physical/Consult. - L Spine: dermatomal strength & reflexes bilateral Strength: hip flexion: 5/5 (At her lower extremity she has sustained dorsiflexion plantarflexion EHL bilaterally. Her thighs and calves soft nontender. She has good strength bilaterally.) Strength: hip extension: 5/5 (She has bilateral paramedian incisions. The left incision site has a light area of some pinkish erythema. It is not well- demarcated and is quite light it blanches he has approximately 5 x 3 cm. There is no dehiscence of the wound. There is no purulence. There is no palpable abscess.) Strength: knee flexion: 5/5 (At her skin there is no palpable abscess. There is some induration around the area approximately 5 to 5 cm on the left incision site. There is no drainage. The right incision site appears clear.) Results - Labs Labs: Abnormal Lab Results - Last 24 Hours (Table) 09/28/23 09/28/23 09/28/23 Range/Units 17:06 17:06 17:06 WBC 14.2 H (3.8-10.6) k/uL Neutrophils # 12.4 H (1.3-7.7) k/uL Lymphocytes # 0.9 L (1.0-4.8) k/uL Sodium 130 L (137-145) mmol/L Chloride 97 L (98-107) mmol/L BUN 21 H (7-17) mg/dL Glucose 237 H (74-99) mg/dL C-Reactive Protein 6.8 H (<1.0) mg/dL Urine Glucose (UA) 4+ H (Negative) Urine Ketones 2+ H (Negative) H & H 09/28/23 Range/Units 17:06 Hgb 13.8 (11.4-16.0) gm/dL Hct 41.8 (34.0-46.0) % Result Diagrams: 09/28/23 17:06 09/28/23 17:06 - Diagnostic results CT Scan - lumbar: report reviewed (The hardware is well aligned and appears to have good decompression.), image reviewed (Lumbar CT scan is reviewed. The hardware is intact at L5-S1. There is some fluid around the surgical approach sites bilaterally at L5 and S1 1. It is slightly larger at the left where the bulk of the work was done. This correlates with the surgery. It is difficult to determine if this is absces) Assessment and Plan Assessment: 6 weeks postop minimally invasive decompression fusion L5-S1 for her stenosis with listhesis and lower extreme radiculopathy Erythema around the surgical site particularly on the left for cellulitis versus abscess Long history of low back pain lower extreme radiculopathy which had been improving History of coronary artery disease status post stenting History of diabetes Plan: 6 weeks postop minimally invasive decompression fusion L5-S1 for her stenosis with listhesis and lower extreme radiculopathy Erythema around the surgical site particularly on the left for cellulitis versus abscess Long history of low back pain lower extreme radiculopathy which had been improving History of coronary artery disease status post stenting History of diabetes The patient had been doing nicely postoperatively and did hold the past couple of days. She apparently was in a hot tub over the past couple days and had significant erythema around her left surgical site. She started oral antibiotics but was not making a progress in had fevers this morning and presented to the emergency room. Here in the emergency room she has been on a number of IV antibiotics and it seems to be improving to some degree around the area. We took pictures of the site in the room today and compared them to this morning and yesterday and it seems to have made some progress with the IV antibiotics. On exam she is not having any neurologic decline. The CT scan is reviewed and there is fluid collection around the surgical approach sites but is difficult to determine if this is abscess versus postoperative fluid. She has induration around the left surgical site but I do not have a palpable specific abscess at the area and there is no drainage. With her making progress I think we can observe her tonight with the IV antibiotics on board. Will have count results for infectious disease as well. If her improvement is stalling or if she is not having improvement and having worsening I think that we would proceed with open irrigation debridement of the area. I discussed this with her and her discussed the risks of her other medical history as well as the recent surgery and the fact that she was in a hot tub over the past couple of days. She is making some progress in that gives us some hope that it can be some local cellulitis around the wound site which can resolve with medical management. However if this is stalling out or if she is having any worsening we will be planning to proceed with formal irrigation debridement of the area. I discussed this with her at length. I answered her questions the best my ability. Will make her n.p.o. after midnight and we will evaluate her closely to determine if we will proceed with medical management versus surgical intervention.
[2023-09-28] MEDS: VANCOMYCIN 1,500 MG in SODIUM CHLORIDE 0.9% 500 ML 500 ML IVPB STA (22:32)
[2023-09-28] MEDS: SODIUM CHLORIDE 0.9% 1,000 ML IV STA (22:32)
[2023-09-28] MEDS: SODIUM CHLORIDE 0.9% 1,000 ML IV SCH (22:43)
[2023-09-28 23:19] LABS: Erythrocyte Sedimentation Rate 39 mm/Hr (0-20)
[2023-09-29] MEDS: HYDROcodone/APAP 7.5-325MG 1 EACH TAB PO PRN (01:01)
[2023-09-29] MEDS: KETOROLAC 15 MG/ML 1 ML VIAL IVP PRN (02:36)
[2023-09-29] MEDS: CYCLOBENZAPRINE 10 MG TAB PO PRN (02:36)
[2023-09-29 06:07] LABS: Glucose,Whole Blood 191 mg/dL (70-110)
[2023-09-29] MEDS: metFORMIN 500 MG TAB PO SCH (06:31)
[2023-09-29] MEDS ORDERED: DEXTROSE 50% SYRINGE 50 ML IVP PRN ×2 (08:05)
[2023-09-29 08:10] LABS: African American GFR (CKD) >90 (>60 ml/min/1.73 sqM); Non-African American GFR(CKD) >90 (>60 ml/min/1.73 sqM)
[2023-09-29] MEDS ORDERED: NON FORMULARY DRUG (Fish Oil/Dha/Epa [Fish Oil 1,200 Mg Fish Oil] 1 EACH Capsule) PO SCH (09:00)
[2023-09-29] MEDS ORDERED: PIOGLITAZONE 30 MG TAB PO SCH (09:00)
[2023-09-29] MEDS: METOPROLOL TARTRATE 50 MG TAB PO SCH (09:42)
[2023-09-29] MEDS: LOSARTAN 50 MG TAB PO SCH (09:43)
[2023-09-29] MEDS: DULoxetine HCL 20 MG CAPSULE.DR PO SCH (09:43)
[2023-09-29] MEDS: ASPIRIN 81 MG PO SCH (09:45)
--- NOTE | 2023-09-29 10:28 | P.PN ---
Progress Note - Text Progress Note Date: 09/29/23 The patient is seen and examined today at bedside. She denies any new fevers. She says she still has pain after the left side of her lower back and is still feels puffy and swollen the left lower back. She denies any new changes in her lower extremities. Denies any nausea or vomiting. On exam she is afebrile with stable vital signs She is laying comfortably but has pain in her lower back with movement. She feels like this had gotten worse over the past couple of weeks and is essentiall y the same as yesterday. The incision site there is less erythema. There is palpable fullness and it seems to be a collection of fluid at the subcutaneous space and potentially to the deep tissue. There is no drainage. There is no obvious purulence. The area is centered primarily over the left incision site. Lower extremities have 5/5 strength dorsiflexion plantarflexion EHL. Calves thighs soft nontender. Assessment and plan Lumbar spine wound infection with likely abscess on the left 6 weeks status post minimally invasive decompression fusion L5-S1 Low back pain Recent surgery with decompression fusion L5-S1 6 weeks ago for her spinal stenosis with listhesis and lower extreme radiculopathy The patient's fevers have resolved with the IV antibiotics and the erythema superficially has resolved. She does seem to have a fluctuant mass of fluid at the subcutaneous and deep space. It felt more indurated yesterday but today feels a bit more like a discrete fluid mass. With her continued symptoms and the presence of the fluctuance I think that we should go ahead and do a formal irrigation and debridement of the space. This will allow us to get cultures and also allow for proper washout of the space to protect her healing fusion. I would not plan on taking out hardware and during this procedure but would only plan on doing soft tissue debridement and irrigation of the space. It is difficult to determine at this point if she had further irrigation or multiple irrigation and debridement procedures. Will plan to proceed today in the operating room for formal irrigation debridement of the lumbar spine wound. I discussed these issues with her I discussed the risk factors involved I discussed the risks complications alternatives and benefits of treatment and the potential for her further healing. I answered her questions best my ability limb she understand and she is agreeable with the plan. Will plan to proceed today. She will remain NPO.
--- NOTE | 2023-09-29 11:01 | P.CONS ---
History of Present Illness - Reason for Consult Consult date: 09/29/23 - History of Present Illness Patient is a 47-year-old female with a history of hypertension, type 2 diabetes, dyslipidemia, rheumatoid arthritis, CAD presenting with possible surgical site infection. Patient is 6 weeks postop minimally invasive decompression and fusion L5-S1. [facility] consulted for medical management. She claims that she started noticing redness in her back couple days ago along with some swelling. She did not notice any discharge. She also started having fevers and chills. Denies any chest pain, shortness of breath, abdominal pain, urinary or bowel complaints. In the ED, temperature was 101.5, pulse 90, respiratory 16, blood pressure 122/79, saturating 97% on room air. WBC 14.2, ESR 39, sodium 130, chloride 97, creatinine 0.59, blood sugars range between 1 91-2 37, CRP 6.8, urinalysis negative for nitrites and leukocyte esterase. Lumbar CT shows subcutaneous fluid collection in the surgical bed suspicious for abscess/cellulitis. Pertinent positives and negatives as discussed in HPI, a complete review of systems was performed and all other systems are negative. Patient seen and examined at bedside. Vital signs reviewed General: nontoxic, no distress, appears at stated age Derm: warm, dry, Surgical site erythema, no drainage noted Head: atraumatic, normocephalic, symmetric Eyes: EOMI, no lid lag, anicteric sclera, pupils equal round reactive to light ENT: Nose and ears atraumatic Neck: No thyromegaly, supple Mouth: no lip lesion, mucus membranes moist Cardiovascular: S1S2 reg, no murmur, no edema Lungs: clear to auscultation bilateral, no rhonchi, no rales, no wheeze, no accessory muscle use Abdominal: soft, nontender to palpation, no guarding, no appreciable organomegaly Ext: no gross muscle atrophy, muscle strength muscle strength 5 out of 5 in all 4 extremities, no contractures Neuro: CN II-XII grossly intact Psych: Alert, oriented, appropriate affect Assessment/Plan: Surgical site infection Sepsis secondary to above Recent minimally invasive decompression and fusion of L5-S1 -Currently on IV vancomycin, pharmacy to dose, monitor for renal toxicity -ID consulted -Orthospine following, may need primary source control -Blood cultures pending -Patient hemodynamically stable -Pain control with oral Tylenol as needed, Flexeril as needed, duloxetine 20 mg daily, Motrin 400 every 6 hours as needed, oral [place] as needed, IV morphine as needed, monitor for sedation Hyponatremia Prerenal azotemia -Likely in the setting of sepsis -Hold hydrochlorothiazide History of hypertension -Holding hydrochlorothiazide -Okay to continue losartan 50 twice daily -Okay to continue metoprolol 50 twice daily Type 2 diabetes Hyperglycemia -Home hold metformin and Actos, and Victoza -Sliding scale insulin, monitor for hypoglycemia Thank you for allowing us to participate in the care of this pleasant patient. Do not hesitate to contact us with questions. Someone can be reached from the [facility] hospitalist group all hours of the day at [phone] or via [employer]. Past Medical History Past Medical History: Coronary Artery Disease (CAD), Diabetes Mellitus, Hyperlipidemia, Hypertension, Rheumatoid Arthritis (RA), Skin Disorder Additional Past Medical History / Comment(s): 6 weeks postop minimally invasive decompression fusion L5-S1 done on August 12, 2023 for her severe stenosis with listhesis and lower extreme radiculopathy. neuropathy in feet. Psoriatic arthritis and psoriasis. History of Any Multi-Drug Resistant Organisms: None Reported Past Surgical History: Heart Catheterization With Stent Additional Past Surgical History / Comment(s): D&C X2, [facility] Clinic Procedure. Spinal fusion 08/12/23 Past Anesthesia/Blood Transfusion Reactions: Family History of Problems w/ Anesthesia Additional Past Anesthesia/Blood Transfusion Reaction / Comm: Sister could hear and feel everything during surgery. Date of Last Stent Placement:: 10/28/21 Past Psychological History: No Psychological Hx Reported Smoking Status: Never smoker Past Alcohol Use History: Rare Past Drug Use History: Marijuana Additional Drug Use History / Comment(s): Marijuana gummies for pain. Hasnt t aken any since prior to surgery. - Past Family History Mother Family Medical History: Cancer Additional Family Medical History / Comment(s): Lung cancer - at age 39. Father Family Medical History: Cancer Additional Family Medical History / Comment(s): Committed suicide 5 years ago. Medications and Allergies Home Medications Medication Instructions Recorded Confirmed Type DULoxetine HCL [Cymbalta] 20 mg PO DAILY 10/28/21 09/28/23 History Losartan [Cozaar] 50 mg PO BID 10/28/21 09/28/23 History Atorvastatin [Lipitor] 80 mg PO HS #90 tab 10/31/21 09/28/23 Rx Liraglutide [Victoza 3-Louis] 1.8 mg SQ DAILY@1430 12/27/21 09/28/23 History Insulin Glargine,Hum.rec.anlog 12 units SQ DAILY@1430 05/30/23 09/28/23 History [Lantus Solostar Pen] Nitroglycerin Sl Tabs [Nitrostat] 0.4 mg SL Q5M PRN 05/30/23 09/28/23 History Pioglitazone [Actos] 30 mg PO DAILY 05/30/23 09/28/23 History metFORMIN HCL ER [Glucophage XR] 1,000 mg PO W/SUPPER 05/30/23 09/28/23 History Aspirin [Adult Low Dose Aspirin EC] 81 mg PO DAILY 08/07/23 09/28/23 History Cyclobenzaprine [Flexeril] 10 mg PO TID PRN #60 tab 08/14/23 09/28/23 Rx Cephalexin [Keflex] 500 mg PO Q6H 09/28/23 09/28/23 History Fish Oil/Dha/Epa [Fish Oil 1,200 1 cap PO DAILY 09/28/23 09/28/23 History mg Fish Oil] HYDROcodone/APAP 7.5-325MG [[place] 1 tab PO Q4HR PRN 09/28/23 09/28/23 History 7.5-325] Metoprolol Tartrate [Lopressor] 50 mg PO BID 09/28/23 09/28/23 History hydroCHLOROthiazide [Hydrodiuril] 50 mg PO DAILY 09/28/23 09/28/23 History Allergies Allergy/AdvReac Type Severity Reaction Status Date / Time No Known Allergies Allergy Verified 09/28/23 19:48 Physical Exam Vitals: Vital Signs Temp Pulse Pulse Resp BP BP Pulse Ox 09/29/23 07:53 97.3 F L 78 18 115/65 09/29/23 02:00 98.5 F 76 18 129/76 98 09/29/23 00:05 97.8 F 74 16 126/79 94 L 09/28/23 22:32 78 18 115/78 96 09/28/23 21:12 98.2 F 73 18 118/71 99 07/06/24 20:06 78 18 124/74 98 09/28/23 19:06 100.2 F H 85 16 99/59 95 09/28/23 16:47 101.5 F H 90 16 122/79 97 Intake and Output 09/28/23 09/29/23 09/29/23 22:59 06:59 14:59 Other: # Voids 1 Weight 90.718 kg 94.5 kg Results CBC & Chem 7: 09/28/23 17:06 09/29/23 07:14 Labs: Abnormal Lab Results - Last 24 Hours (Table) 09/28/23 09/28/23 09/28/23 Range/Units 17:06 17:06 17:06 WBC 14.2 H (3.8-10.6) k/uL Neutrophils # 12.4 H (1.3-7.7) k/uL Lymphocytes # 0.9 L (1.0-4.8) k/uL ESR 39 H (0-20) mm/Hr Sodium 130 L (137-145) mmol/L Chloride 97 L (98-107) mmol/L BUN 21 H (7-17) mg/dL Glucose 237 H (74-99) mg/dL POC Glucose (mg/dL) (70-110) mg/dL C-Reactive Protein 6.8 H (<1.0) mg/dL Urine Glucose (UA) 4+ H (Negative) Urine Ketones 2+ H (Negative) 09/29/23 Range/Units 06:05 WBC (3.8-10.6) k/uL Neutrophils # (1.3-7.7) k/uL Lymphocytes # (1.0-4.8) k/uL ESR (0-20) mm/Hr Sodium (137-145) mmol/L Chloride (98-107) mmol/L BUN (7-17) mg/dL Glucose (74-99) mg/dL POC Glucose (mg/dL) 191 H (70-110) mg/dL C-Reactive Protein (<1.0) mg/dL Urine Glucose (UA) (Negative) Urine Ketones (Negative)
[2023-09-29 11:59] LABS: Glucose,Whole Blood 211 mg/dL (70-110)
[2023-09-29] MEDS: INSULIN ASPART (NovoLOG) 100 UNIT/ML VIAL SQ SCH (12:01)
[2023-09-29] MEDS: VANCOMYCIN 1,500 MG in SODIUM CHLORIDE 0.9% 500 ML 500 ML IVPB SCH (12:01)
[2023-09-29] MEDS ORDERED: NON FORMULARY DRUG (Liraglutide [Victoza 3-Pak] 0.6 MG/0.1 ML Ml) SQ SCH (14:30)
[2023-09-29 15:03] LABS: Glucose,Whole Blood 154 mg/dL (70-110)
[2023-09-29] MEDS ORDERED: fentaNYL (PF) 50 MCG/ML 2 ML AMP ONE (15:25)
[2023-09-29] MEDS ORDERED: ONDANSETRON 4 MG/2 ML VIAL ONE (15:25)
[2023-09-29] MEDS ORDERED: SUCCINYLCHOLINE CHLORIDE 200 MG/10 ML VIAL IV ONE (15:25)
[2023-09-29] MEDS ORDERED: PHENYLEPHRINE-0.9% NACL SYG 1,000 MCG/10 ML SYRINGE ONE (15:25)
[2023-09-29] MEDS ORDERED: DEXAMETHASONE SOD PHOSPHATE 4 MG/ML 1 ML VIAL ONE (15:25)
[2023-09-29] MEDS ORDERED: MIDAZOLAM 2 MG/2 ML VIAL ONE (15:25)
[2023-09-29] MEDS ORDERED: LIDOCAINE 1% INJ 10MG/ML (20 ML MDV) ONE (15:25)
[2023-09-29] MEDS ORDERED: PROPOFOL 10 MG/ML 20 ML VIAL IV ONE (15:25)
[2023-09-29] MEDS: LACTATED RINGERS 1,000 ML IV ONE (15:30)
[2023-09-29] MEDS ORDERED: HYDROmorphone 0.5 MG/0.5 ML SYRINGE IVP PRN (16:29)
[2023-09-29] MEDS ORDERED: BENZOCAINE/MENTHOL LOZENG 1 EACH LOZENGE MUCOUS MEM PRN (16:29)
[2023-09-29] MEDS ORDERED: HYDROmorphone 1 MG/ML 1 ML SYRINGE IVP PRN (16:29)
--- NOTE | 2023-09-29 16:29 | P.OP ---
Date of Procedure: 09/29/23 Preoperative Diagnosis: Lumbar spine wound infection 6-week status post decompression fusion L5-S1 Postoperative Diagnosis: Same with no findings of purulence or pus. With findings of air-filled space at the subcutaneous tissue Anesthesia: GETA Pathology: other (Subcutaneous tissue samples cultures sent to microbiology #1 preirrigation #2 post irrigation) Condition: stable Disposition: PACU Description of Procedure: BRIEF OPERATIVE NOTE Preoperative Diagnosis:Lumbar spine wound infection 6-week status post decompression fusion L5-S1 Postoperative Diagnosis: Same with findings of no purulence or pus, but with findings of air-filled space at the subcutaneous tissue Procedure: Open irrigation and debridement of lumbar spine wound, at the subcutaneous space without involving the deep tissue or deep fascia. Area measuring approximately 10 x 10 x 4 cm Surgeon: Dr. Mark Technical Information Specialist: public health training assistant Anesthesia: General anesthesia Estimated blood loss: Approximately 20 cc Complications: None apparent Specimen: Subcutaneous tissue specimen #1 preirrigation #2 post irrigation Components implanted: None but I did place a superficial iodoform drain Disposition: To recovery room in good stable condition. OPERATIVE INDICATIONS The patient had a long history of issues at her lumbar spine and on August 12, 2023 underwent minimally invasive decompression fusion at L5-S1 for her spinal stenosis with listhesis and lower extreme radiculopathy. Patient had done well with this however over the past several days she has been developing swelling at the left incision site with some erythema. She had been in [place] and had been using the hot tub regularly. She has history of heart stents and diabetes. 2 nights ago she started having fevers and presented to the emergency room after she had already been started on a day of oral antibiotics. She is started on IV antibiotics and was making good progress but was still having pain over the area. The subcutaneous tissue became less indurated but was having a discrete area of fluctuant mass at the subcutaneous space. The erythema was diminishing and there was no active drainage but she did have an area of discrete pressurized space. With this and with her history and with her continued pain we felt that a formal irrigation and debridement was necessary to limit the risk and allow further benefit with washing out of infection at the lumbar wound. The benefits of surgery including but not limited to, risk of bleeding risk of infection, risk of need for further surgery, risk of decreased, loss of motion, loss of function, nerve damage, paralysis, heart attack, blindness and . OPERATIVE SUMMARY After discussing all the risks, patient alternatives and benefits at length, the patient elected to proceed with surgical intervention, signed informed consent, and presented for their procedure. The patient was seen and examined in the preoperative holding area and the surgical site was marked. The patient was given antibiotics and brought to the operating room. The patient was sedated and intubated by anesthesia in standard fashion. The patient was positioned on to the operating room table in a prone position on the appropriate frame which was well-padded and well molded. We were careful to pad any bony prominences and pressure points. We were careful to maintain the patient's cervical spine and good neutral alignment and position throughout. The patient was prepped and draped in a normal standard fashion. An appropriate timeout and keystone protocol performed. We were able to proceed with the surgery. The incisions were obviously identified. The left incision had an area of palpable contents at the subcutaneous space under pressure. An incision was made at the midline longitudinally over the left prior incision site approximately 2 and half centimeters in length. Dissection was taken down subcutaneously. At the deep subcutaneous space there was an obvious cavity of space. There is no pus there is no purulence. There is no fluid at the space. The space appeared to be filled with air. A first culture was taken at the deep subcutaneous tissue to pass for microbiology. There is some denuded tissue along the margins of the space but there was no purulence. I palpated along the fascia. The fascia appeared to be intact without evidence of disruption. I did not feel any fluid collection or significant pressure underneath the fascia. I did some debridement of the tissue with a curette and the denuded tissue was removed. I had good surfaces around the area. I was able to palpate along the fascia which did not have any apparent deep void. I did not expose the deep hardware or bony structures. There is no purulence or pus. I proceeded to do copious irrigation. 9 L of irrigation fluid was run through the space with periodic debridement completed. There is no further debrided tissue or no purulence. Second culture was taken to be passed for microbiology. I desponded to place a iodoform gauze at the deep space. Subcutaneous tissue was closed with 2-0 PDS. The skin was closed with chinyere. The wound was cleaned and dried and dressed with the appropriate dressing. The drapes were broken down. The patient was gently rolled back onto their hospital bed being careful to maintain their cervical spine and good neutral alignment and position. They were woken up by anesthesia, extubated, and brought to the recovery room in good stable condition. The patient will be admitted to the hospital for observation and for appropriate postoperative care, medical management and monitoring. We will continue to follow them closely about the postoperative course. She will continue her IV antibiotics per infectious disease and we will await cultures for further planning. It is okay for her to mobilize.
[2023-09-29] MEDS ORDERED: ONDANSETRON 4 MG/2 ML VIAL IVP PRN (16:30)
[2023-09-29 16:55] LABS: Glucose,Whole Blood 159 mg/dL (70-110)
[2023-09-29] MEDS: INSULIN DETEMIR (LEVEMIR) 100 UNIT/ML SYR SQ SCH (17:24)
[2023-09-29] MEDS: CEFEPIME 2 GM in SODIUM CHLORIDE 0.9% 100 ML IVPB SCH (18:14)
[2023-09-29] MEDS: SODIUM CHLORIDE 0.9% 1,000 ML IV SCH (19:20)
[2023-09-29] MEDS: LACTATED RINGERS 1,000 ML IV SCH (19:20)
[2023-09-29 20:05] LABS: Glucose,Whole Blood 314 mg/dL (70-110)
[2023-09-29] MEDS: ATORVASTATIN 80 MG TAB PO SCH (20:30)
--- NOTE | 2023-09-29 22:38 | P.CONS ---
History of Present Illness - Reason for Consult Consult date: 09/29/23 Postop wound erythema Requesting physician: Shabnam Mark - Chief Complaint Fever redness to the lumbar site x 1 day - History of Present Illness Patient is a 47-year-old female with a past medical history significant for diabetes mellitus hypertension hyperlipidemia coronary disease rheumatoid arthritis in this patient who did have minimally invasive decompres dalton and fusion L5-S1 done on August 12, 2023 patient mention she was doing well however there was small area of the wound that has not healed completely about 2 days ago the patient noticed to have increasing swelling or redness to the lower back area and having more pain describing it to be sharp moderate in intensity without any radiation, patient was started on oral Keflex subsequently the patient started spiking a fever for the patient present to the hospital on arrival to the ER patient did have a temperature of 101.5 F patient was not tachycardic hypotensive or hypoxic no need for supplemental oxygen patient did have a 10-14.2 with a left shift creatinine 0.59 liver enzymes are normal blood cultures have been obtained which are currently pending patient was started on vancomycin infectious disease was consulted for further management of antibiotic therapy, patient did have a CT of the lumbar spine suspicious for a fluid collection suggestive of abscess and the patient is scheduled for drainage of this abscess this afternoon Review of Systems Positive point and negatives has been mentioned in the HPI, complete review of systems was performed and all other systems are negative Past Medical History Past Medical History: Coronary Artery Disease (CAD), Diabetes Mellitus, Hyperlipidemia, Hypertension, Rheumatoid Arthritis (RA), Skin Disorder Additional Past Medical History / Comment(s): 6 weeks postop minimally invasive decompression fusion L5-S1 done on August 12, 2023 for her severe stenosis with listhesis and lower extreme radiculopathy. neuropathy in feet. Psoriatic arthritis and psoriasis. History of Any Multi-Drug Resistant Organisms: None Reported Past Surgical History: Heart Catheterization With Stent Additional Past Surgical History / Comment(s): D&C X2, [facility] Procedure. Spinal fusion 08/12/23 Past Anesthesia/Blood Transfusion Reactions: Family History of Problems w/ Anesthesia Additional Past Anesthesia/Blood Transfusion Reaction / Comm: Sister could hear and feel everything during surgery. Date of Last Stent Placement:: 10/28/21 Past Psychological History: No Psychological Hx Reported Smoking Status: Never smoker Past Alcohol Use History: Rare Past Drug Use History: Marijuana Additional Drug Use History / Comment(s): Marijuana gummies for pain. Hasnt taken any since prior to surgery. - Past Family History Mother Family Medical History: Cancer Additional Family Medical History / Comment(s): Lung cancer - at age 39. Father Family Medical History: Cancer Additional Family Medical History / Comment(s): Committed suicide 5 years ago. Medications and Allergies Home Medications Medication Instructions Recorded Confirmed Type DULoxetine HCL [Cymbalta] 20 mg PO DAILY 10/28/21 09/28/23 History Losartan [Cozaar] 50 mg PO BID 10/28/21 09/28/23 History Atorvastatin [Lipitor] 80 mg PO HS #90 tab 10/31/21 09/28/23 Rx Liraglutide [Victoza 3-Louis] 1.8 mg SQ DAILY@1430 12/27/21 09/28/23 History Insulin Glargine,Hum.rec.anlog 12 units SQ DAILY@1430 05/30/23 09/28/23 History [Lantus Solostar Pen] Nitroglycerin Sl Tabs [Nitrostat] 0.4 mg SL Q5M PRN 05/30/23 09/28/23 History Pioglitazone [Actos] 30 mg PO DAILY 05/30/23 09/28/23 History metFORMIN HCL ER [Glucophage XR] 1,000 mg PO W/SUPPER 05/30/23 09/28/23 History Aspirin [Adult Low Dose Aspirin EC] 81 mg PO DAILY 08/07/23 09/28/23 History Cyclobenzaprine [Flexeril] 10 mg PO TID PRN #60 tab 08/14/23 09/28/23 Rx Cephalexin [Keflex] 500 mg PO Q6H 09/28/23 09/28/23 History Fish Oil/Dha/Epa [Fish Oil 1,200 1 cap PO DAILY 09/28/23 09/28/23 History mg Fish Oil] HYDROcodone/APAP 7.5-325MG [Mcgregor 1 tab PO Q4HR PRN 09/28/23 09/28/23 History 7.5-325] Metoprolol Tartrate [Lopressor] 50 mg PO BID 09/28/23 09/28/23 History hydroCHLOROthiazide [Hydrodiuril] 50 mg PO DAILY 09/28/23 09/28/23 History Allergies Allergy/AdvReac Type Severity Reaction Status Date / Time No Known Allergies Allergy Verified 09/28/23 19:48 Physical Exam Vitals: Vital Signs Temp Pulse Pulse Resp BP BP Pulse Ox 09/29/23 08:00 78 18 09/29/23 07:53 97.3 F L 78 18 115/65 09/29/23 02:00 98.5 F 76 18 129/76 98 09/29/23 00:05 97.8 F 74 16 126/79 94 L 09/28/23 22:32 78 18 115/78 96 09/28/23 21:12 98.2 F 73 18 118/71 99 09/28/23 20:06 78 18 124/74 98 09/28/23 19:06 100.2 F H 85 16 99/59 95 09/28/23 16:47 101.5 F H 90 16 122/79 97 Intake and Output 09/28/23 09/29/23 09/29/23 22:59 06:59 14:59 Other: Voiding Method Toilet # Voids 1 Weight 90.718 kg 94.5 kg GENERAL DESCRIPTION: Middle-aged female lying in bed, no distress. No tachypnea or accessory muscle of respiration use. HEENT: Shows Pallor , no scleral icterus. Oral mucous membrane is dry. No pharyngeal erythema or thrush NECK: Trachea central, no thyromegaly. LUNGS: Unlabored breathing. Clear to auscultation anteriorly. No wheeze or crackle. HEART: S1, S2, regular rate and rhythm. No loud murmur ABDOMEN: Soft, no tenderness , guarding or rigidity, no organomegaly EXTREMITIES: No edema of feet. SKIN: Minimal erythema and tenderness to the lumbar site no drainage NEUROLOGICAL: The patient is awake, alert, oriented x3, mood and affect normal. Results CBC & Chem 7: 09/28/23 17:06 09/29/23 07:14 Labs: Abnormal Lab Results - Last 24 Hours (Table) 09/28/23 09/28/23 09/28/23 Range/Units 17:06 17:06 17:06 WBC 14.2 H (3.8-10.6) k/uL Neutrophils # 12.4 H (1.3-7.7) k/uL Lymphocytes # 0.9 L (1.0-4.8) k/uL ESR 39 H (0-20) mm/Hr Sodium 130 L (137-145) mmol/L Chloride 97 L (98-107) mmol/L BUN 21 H (7-17) mg/dL Creatinine (0.52-1.04) mg/dL Glucose 237 H (74-99) mg/dL POC Glucose (mg/dL) (70-110) mg/dL C-Reactive Protein 6.8 H (<1.0) mg/dL Urine Glucose (UA) 4+ H (Negative) Urine Ketones 2+ H (Negative) 09/29/23 09/29/23 Range/Units 06:05 07:14 WBC (3.8-10.6) k/uL Neutrophils # (1.3-7.7) k/uL Lymphocytes # (1.0-4.8) k/uL ESR (0-20) mm/Hr Sodium (137-145) mmol/L Chloride (98-107) mmol/L BUN (7-17) mg/dL Creatinine 0.49 L (0.52-1.04) mg/dL Glucose (74-99) mg/dL POC Glucose (mg/dL) 191 H (70-110) mg/dL C-Reactive Protein (<1.0) mg/dL Urine Glucose (UA) (Negative) Urine Ketones (Negative) Assessment and Plan (1) Fever Current Visit: Yes Status: Acute Code(s): R50.9 - FEVER, UNSPECIFIED SNOMED Code(s): 539589307 (2) Post op infection Current Visit: Yes Status: Acute Code(s): T81.40XA - INFECTION FOLLOWING A PROCEDURE, UNSPECIFIED, INIT SNOMED Code(s): 02450081 Plan: 1patient [facility] with sepsis in this patient who did have a fever elevated white count meeting criteria for SIRS/sepsis source is likely lumbar cellulitis in this patient who recently did have L5S1 fusion decompression and likely from gram-positive skin sumaya failing outpatient oral Keflex therapy 2-await surgical drainage and deep culture and will also follow blood culture that has also been obtained 3-continue with the vancomycin while watching her kidney function closely and will add cefepime to cover for the gram-negative while waiting for the culture to finalize Multiple question concern answered We will follow on clinical condition and cultures to further adjust medication if needed Thank you for this consultation we will follow the patient along with you Dictation was produced using [employer] dictation software. please excuse any grammatical, word or spelling errors. Time with Patient: Greater than 30
[2023-09-30] MEDS ORDERED: ONDANSETRON 4 MG/2 ML VIAL IVP PRN (07:00)
[2023-09-30] MEDS ORDERED: HYDROmorphone 0.5 MG/0.5 ML SYRINGE IVP PRN (07:00)
[2023-09-30 07:22] LABS: Glucose,Whole Blood 213 mg/dL (70-110)
[2023-09-30 09:04] LABS: Basophils % (A) 0 %; Eosinophils % (A) 0 %; HCT 38.6 % (34.0-46.0); HGB 12.8 gm/dL (11.4-16.0); Lymphocytes # (A) 0.7 k/uL (1.0-4.8); Lymphocytes % (A) 6 %; MCH 30.2 pg (25.0-35.0); MCV 91.4 fL (80.0-100.0); Monocytes # (A) 0.3 k/uL (0-1.0); Monocytes % (A) 3 %; Neutrophils # (A) 9.9 k/uL (1.3-7.7); Neutrophils % (A) 90 %; Platelet Count 239 k/uL (150-450); RBC 4.23 m/uL (3.80-5.40); RDW 12.9 % (11.5-15.5)
--- NOTE | 2023-09-30 09:15 | P.PN ---
Progress Note - Text Progress Note Date: 09/30/23 Orthopedic Spine: History of present illness: Patient is a pleasant 47-year-old female who is seen at the bedside following open irrigation and debridement of the lumbar spine wound at the subcutaneous space without involving deep tissue or deep fascia for lumbar spine wound infection postop 6 weeks L5-S1 decompression and fusion. Patient states they are doing well postsurgically. She feels her pain and symptoms have improved following surgical intervention. She is currently on IV antibiotics. Currently does not complain of nausea, vomiting, fever, or chills. Patient states pain has been adequately controlled. Patient is eating and voiding freely without difficulty. Her pain is controlled with medications. She is not currently complain of any lower extremity weakness or radiculopathy bilaterally. She continues to be seen by medicine and infectious disease. He is currently on vancomycin. Cultures were taken during surgical intervention. These cultures are pending. Dressing remains intact of the lumbar spine without any significant difficulty. She has been able to mobilize without difficulty. Physical Exam: Status post surgical day number 1 Patient is awake, alert, and oriented 3 Vital signs stable Good chest excursion with deep inspiration and expiration Dorsiflexion, plantarflexion, and extensor hallucis longus positive sustained bilaterally No signs or symptoms of DVT; no calf pain Dressing is clean, dry, and intact; no erythema, purulence, or signs of infection Assessment: Status post open irrigation and debridement of the lumbar spine wound at the subcutaneous space without involving deep tissue or deep fascia Lumbar spine wound infection postop 6 weeks L5-S1 decompression and fusion Low back pain Hyponatremia Type 2 diabetes History of hypertension Plan: 1. Patient is post open irrigation and debridement of the lumbar spine wound at the subcutaneous space without involving deep tissue or deep fascia for lumbar spine wound infection postop 6 weeks L5-S1 decompression and fusion. She has had improvement postoperatively. Her pain is well-controlled at her lumbar spine with medication. 2. Currently dressing will remain intact at the lumbar spine. Iodoform gauze is intact. [place] are intact. Will plan to remove iodoform gauze tomorrow and change dressing tomorrow. 3. Ambulate as tolerated; work with Physical Therapy 4. Continue Pain control with oral medications 5. Medical management can continue to manage patient for patient's other medical diagnoses 6. Patient will continue to be seen and examined by infectious disease who will manage her antibiotic medications. 7. We will continue to follow the patient closely. Cultures are currently pending taking during surgical intervention. Patient will most likely remain in the hospital till culture results are finalized and appropriate antibiotic regimen is prescribed in the outpatient setting by infectious disease. 8. Following discharge,Patient can follow-up with Wilbert Hines PA-C or Dr. González Mark at [facility] in 1 week following discharge
[2023-09-30 09:28] LABS: African American GFR (CKD) >90 (>60 ml/min/1.73 sqM); Anion Gap 9 mmol/L; Blood Urea Nitrogen 19 mg/dL (7-17); Calcium 8.7 mg/dL (8.4-10.2); Carbon Dioxide 22 mmol/L (22-30); Chloride 106 mmol/L (98-107); Glucose 194 mg/dL (74-99); Non-African American GFR(CKD) >90 (>60 ml/min/1.73 sqM); Sodium 137 mmol/L (137-145)
--- NOTE | 2023-09-30 12:20 | P.PN ---
Subjective Progress Note Date: 09/30/23 Subjective: Patient seen and examined at bedside. No acute events overnight. Feeling a lot better today. Pertinent positives and negatives as discussed above, a complete review of systems was performed and all other systems are negative. Vitals Signs Reviewed. General: [nontoxic], [no distress], [appears at stated age], obese Derm: [warm], [dry], back dressing not observed Head: [atraumatic], [normocephalic], [symmetric] Eyes: [EOMI], [no lid lag], [anicteric sclera] Mouth: [no lip lesion], [mucus membranes moist] Cardiovascular: [S1S2 reg], [no murmur] Lungs: [CTA bilateral], [no rhonchi, no rales] , [no accessory muscle use] Abdominal: [soft], [ nontender to palpation], [no guarding], [no appreciable organomegaly] Ext: [no gross muscle atrophy], [no edema], [no contractures] Neuro: [ CN II-XI grossly intact], [no focal neuro deficits] Psych: [Alert], [oriented], [appropriate affect] Data Reviewed Today: Pertinent Labs: WBC 11, sodium 137, creatinine 0.49, blood sugars range between 1 59-3 14 Imaging: No new imaging Assessment and Plan: Surgical site infection status post irrigation and debridement Sepsis secondary to above Recent minimally invasive decompression and fusion of L5-S1 -Currently on IV vancomycin, pharmacy to dose, monitor for renal toxicity, ezra nue IV cefepime 2 g every 8 hours -ID following -Cultures pending -Discussed management with orthopedic spine, continue IV antibiotics, possible discharge in 1 to 2 days -Pain control with oral Tylenol as needed, Flexeril as needed, duloxetine 20 mg daily, Motrin 400 every 6 hours as needed, oral George as needed, IV morphine as needed, monitor for sedation, IV Toradol as needed Hyponatremia, resolved Prerenal azotemia, resolving -Likely in the setting of sepsis -Hold hydrochlorothiazide History of hypertension -Holding hydrochlorothiazide -Okay to continue losartan 50 twice daily -Okay to continue metoprolol 50 twice daily Type 2 diabetes Hyperglycemia -Home hold metformin and Actos, and Victoza -Sliding scale insulin, monitor for hypoglycemia Thank you for allowing us to participate in the care of this pleasant patient. Do not hesitate to contact us with questions. Someone can be reached from the [facility] hospitalist group all hours of the day at [phone] or via perfect serve. Objective - Vital Signs Vital signs: Vital Signs Temp 97.8 F 09/30/23 07:39 Pulse 70 09/30/23 07:39 Resp 19 09/30/23 07:39 BP 127/87 09/30/23 07:39 Pulse Ox 97 09/30/23 07:39 FiO2 Intake & Output 09/29/23 09/30/23 09/30/23 18:59 06:59 18:59 Intake Total 770 Output Total 305 Balance 465 Weight 96.5 kg Intake: IV 650 Oral 120 Output: Urine 300 Estimated Blood Loss 5 Other: Voiding Method Toilet Toilet Toilet # Voids 1 - Labs CBC & Chem 7: 09/30/23 07:41 09/30/23 07:41 Labs: Abnormal Lab Results - Last 24 Hours (Table) 09/29/23 09/29/23 09/29/23 Range/Units 15:02 16:54 20:03 WBC (3.8-10.6) k/uL Neutrophils # (1.3-7.7) k/uL Lymphocytes # (1.0-4.8) k/uL BUN (7-17) mg/dL Creatinine (0.52-1.04) mg/dL Glucose (74-99) mg/dL POC Glucose (mg/dL) 154 H 159 H 314 H (70-110) mg/dL 09/30/23 09/30/23 09/30/23 Range/Units 07:11 07:41 07:41 WBC 11.0 H (3.8-10.6) k/uL Neutrophils # 9.9 H (1.3-7.7) k/uL Lymphocytes # 0.7 L (1.0-4.8) k/uL BUN 19 H (7-17) mg/dL Creatinine 0.49 L (0.52-1.04) mg/dL Glucose 194 H (74-99) mg/dL POC Glucose (mg/dL) 213 H (70-110) mg/dL Microbiology - Last 24 Hours (Table) 09/29/23 16:08 Gram Stain - Preliminary Back 09/29/23 16:10 Gram Stain - Preliminary Back 09/28/23 19:47 Blood Culture - Preliminary Blood 09/28/23 19:32 Blood Culture - Preliminary Blood
--- NOTE | 2023-09-30 12:31 | P.PN ---
Subjective Progress Note Date: 09/30/23 Principal diagnosis: Lumbar surgical site infection Patient is a 47-year-old female with a past medical history significant for diabetes mellitus hypertension hyperlipidemia coronary disease rheumatoid arthritis in this patient who did have minimally invasive decompres dalton and fusion L5-S1 done on August 12, 2023 presenting to the hospital with the pain and swelling redness to the lumbar incision and no fever diagnosed with the lumbar surgical site infection in this patient with status post surgical debridement completed 09/29/2023 operative report did not mention any clear evidence or abscess cavity no culture has been obtained On today's evaluation that is 09/30/2023, Patient is afebrile this morning and denies any chills, patient mention breathing comfortably and is currently on room air, patient denies any chest pain occasional cough patient denies any abdo beau pain no diarrhea no nausea no vomiting and denies any worsening pain to the lower back area. Patient white count is down to 11.0, creatinine 0.49 cultures currently pending Objective - Vital Signs Vital signs: Vital Signs Temp 97.8 F 09/30/23 07:39 Pulse 70 09/30/23 07:39 Resp 19 09/30/23 07:39 BP 127/87 09/30/23 07:39 Pulse Ox 97 09/30/23 07:39 FiO2 Intake & Output 09/29/23 09/30/23 09/30/23 18:59 06:59 18:59 Intake Total 770 Output Total 305 Balance 465 Weight 96.5 kg Intake: IV 650 Oral 120 Output: Urine 300 Estimated Blood Loss 5 Other: Voiding Method Toilet Toilet Toilet # Voids 1 - Exam GENERAL DESCRIPTION: Middle-aged female up in bed in no distress RESPIRATORY SYSTEM: Unlabored breathing , decreased breath sounds at bases HEART: S1 S2 regular rate and rhythm , ABDOMEN: Soft , no tenderness Lumbar surgical site is currently dressed in OR dressing EXTREMITIES: No edema feet - Labs CBC & Chem 7: 09/30/23 07:41 09/30/23 07:41 Labs: Abnormal Lab Results - Last 24 Hours (Table) 09/29/23 09/29/23 09/29/23 Range/Units 11:58 15:02 16:54 WBC (3.8-10.6) k/uL Neutrophils # (1.3-7.7) k/uL Lymphocytes # (1.0-4.8) k/uL BUN (7-17) mg/dL Creatinine (0.52-1.04) mg/dL Glucose (74-99) mg/dL POC Glucose (mg/dL) 211 H 154 H 159 H (70-110) mg/dL 09/29/23 09/30/23 09/30/23 Range/Units 20:03 07:11 07:41 WBC 11.0 H (3.8-10.6) k/uL Neutrophils # 9.9 H (1.3-7.7) k/uL Lymphocytes # 0.7 L (1.0-4.8) k/uL BUN (7-17) mg/dL Creatinine (0.52-1.04) mg/dL Glucose (74-99) mg/dL POC Glucose (mg/dL) 314 H 213 H (70-110) mg/dL 09/30/23 Range/Units 07:41 WBC (3.8-10.6) k/uL Neutrophils # (1.3-7.7) k/uL Lymphocytes # (1.0-4.8) k/uL BUN 19 H (7-17) mg/dL Creatinine 0.49 L (0.52-1.04) mg/dL Glucose 194 H (74-99) mg/dL POC Glucose (mg/dL) (70-110) mg/dL Microbiology - Last 24 Hours (Table) 09/29/23 16:08 Gram Stain - Preliminary Back 09/29/23 16:10 Gram Stain - Preliminary Back 09/28/23 19:47 Blood Culture - Preliminary Blood 09/28/23 19:32 Blood Culture - Preliminary Blood Assessment and Plan (1) Fever Current Visit: Yes Status: Acute Code(s): R50.9 - FEVER, UNSPECIFIED SN OMED Code(s): 678589794 (2) Post op infection Current Visit: Yes Status: Acute Code(s): T81.40XA - INFECTION FOLLOWING A PROCEDURE, UNSPECIFIED, INIT SNOMED Code(s): 09466470 Plan: 1patient presented hospital with sepsis in this patient who did have a fever elevated white count meeting criteria for SIRS/sepsis source is likely lumbar cellulitis in this patient who recently did have L5S1 fusion decompression and likely from gram-positive skin sumaya failing outpatient oral Keflex therapy 2-patient is status post surgical drainage and deep culture however operative report did not mention any deep pocket of abscess 3-patient to continue with the vancomycin and cefepime while waiting for the culture to finalize to determine discharge antibiotics Dictation was produced using [employer] dictation software. please excuse any gramma tical, word or spelling errors. Time with Patient: Less than 30
[2023-09-30 12:32] LABS: Glucose,Whole Blood 238 mg/dL (70-110)
[2023-09-30 17:11] LABS: Glucose,Whole Blood 350 mg/dL (70-110)
[2023-09-30 20:09] LABS: Glucose,Whole Blood 275 mg/dL (70-110)
[2023-10-01 07:36] LABS: Glucose,Whole Blood 202 mg/dL (70-110)
[2023-10-01] MEDS: VANCOMYCIN TROUGH DUE 1 EACH MISC MISCELLANE ONE (08:30)
--- NOTE | 2023-10-01 08:44 | P.PN ---
Progress Note - Text Progress Note Date: 10/01/23 Orthopedic Spine: History of present illness: Patient is a pleasant 47-year-old female who is seen at the bedside following open irrigation and debridement of the lumbar spine wound at the subcutaneous space without involving deep tissue or deep fascia for lumbar spine wound infection postop 6 weeks L5-S1 decompression and fusion. Patient states they are doing well postsurgically and she has continued to improve as compared to yesterday. She feels her pain and symptoms have improved following surgical intervention. She is currently on IV antibiotics. Currently does not complain of nausea, vomiting, fever, or chills. Patient states pain has been adequately controlled. Patient is eating and voiding freely without difficulty. Her pain is controlled with medications. She currently states she is not experiencing any significant pain at her lumbar spine. She is not currently complain of any lower extremity weakness or radiculopathy bilaterally. She continues to be seen by medicine and infectious disease. He is currently on vancomycin and cefepime. IV antibiotics is being managed by infectious disease. They are currently waiting for pending culture results before prescribing home antibiotic medication. Cultures were taken during surgical intervention. These cultures are pending. Preliminary wound culture results for Gram stain showed rare polymorphonuclear leukocytes with no organisms. The luminary aerobic wound culture showed no growth after 24 hours. Dressing remains intact of the lumbar spine without any significant difficulty. She has been able to mobilize without difficulty. Lab results are not available from this morning. Her WBC did improve from 09/29/2023 and reduced to 11.0 on 09/30/2023. Physical Exam: Status post surgical day number 2 Patient is awake, alert, and oriented 3 Vital signs stable Good chest excursion with deep inspiration and expiration Dorsiflexion, plantarflexion, and extensor hallucis longus positive sustained bilaterally No signs or symptoms of DVT; no calf pain Dressing is removed over the left lumbar surgical incision site Iodoform gauze is removed Arley were left intact Some serosanguineous drainage without obvious pus or infection after removal of iodoform gauze No pain with palpation around the surgical site over the left lumbar paraspinal No erythema or induration around the surgical site over the left lumbar paraspinal Dressing is reapplied with nonstick Telfa, 4 x 4, ABD, and paper tape Pertinent studies: Preliminary wound culture results for Gram stain showed rare polymorphonuclear leukocytes with no organisms. The luminary aerobic wound culture showed no growth after 24 hours. Assessment: Status post open irrigation and debridement of the lumbar spine wound at the subcutaneous space without involving deep tissue or deep fascia Lumbar spine wound infection postop 6 weeks L5-S1 decompression and fusion Low back pain Hyponatremia Type 2 diabetes History of hypertension Plan: 1. Patient is post open irrigation and debridement of the lumbar spine wound at the subcutaneous space without involving deep tissue or deep fascia for lumbar spine wound infection postop 6 weeks L5-S1 decompression and fusion. She has continued to improve postoperatively. Her pain is well-controlled at her lumbar spine with medication. Currently, she is not experiencing any pain at her lumbar spine. 2. Dressing has been removed over her left surgical incision site of the lumbar spine. Iodoform gauze removed. Arley remain intact. New dressing is reapplied with nonstick Telfa, 4 x 4, and ABD with paper tape. Dressing may continue be changed as needed. We did discuss patient could benefit with further compression and ice. Patient should avoid heat. Patient may shower today and may have her dressing changed following her shower. 3. Ambulate as tolerated; work with Physical Therapy 4. Continue Pain control with oral medications 5. Medical management can continue to manage patient for patient's other medical diagnoses 6. Patient will continue to be seen and examined by infectious disease who will manage her antibiotic medications. She is currently on vancomycin and cefepime. Culture results continue to be pending. Once finalized, infectious disease will determine appropriate plan of antibiotic medication for the outpatient setting. Preliminary wound culture results for Gram stain showed rare polymorphonuclear leukocytes with no organisms. The luminary aerobic wound culture showed no growth after 24 hours. 7. We will continue to follow the patient closely. Patient will remain in the hospital till culture results are finalized and appropriate antibiotic regimen is prescribed in the outpatient setting by infectious disease. 8. Following discharge,Patient can follow-up with Wilbert Hines PA-C or Dr. González Mark at [facility] in 1 week following discharge
[2023-10-01 10:31] LABS: Basophils # (A) 0.03 X 10*3/uL (0.00-0.10); Basophils % (A) 0.6 %; Eosinophils # (A) 0.01 X 10*3/uL (0.04-0.35); Eosinophils % (A) 0.2 %; HGB 10.8 g/dL (12.0-15.0); Lymphocytes # (A) 1.87 X 10*3/uL (0.90-5.00); Lymphocytes % (A) 35.1 %; MCH 29.3 pg (27.0-32.0); MCHC 32.7 g/dL (32.0-37.0); MCV 89.7 FL (80.0-97.0); Mean Platelet Volume 11.2 FL (9.5-12.2); Monocytes # (A) 0.18 X 10*3/uL (0.20-1.00); Monocytes % (A) 3.4 %; NRBC Per 100 WBC 0 X 10*3/uL (0.00-0.01); Neutrophils # (A) 3.23 X 10*3/uL (1.80-7.70); Neutrophils % (A) 60.5 %; Platelet Count 238 X 10*3/uL (140-440); RBC 3.68 X 10*6/uL (4.10-5.20); RDW 12.9 % (11.5-14.5); WBC 5.33 X 10*3/uL (4.50-10.00)
[2023-10-01 10:49] LABS: BUN/Creat Ratio 35.33 Ratio (12.00-20.00); Blood Urea Nitrogen 21.2 mg/dL (9.0-27.0); Calcium 7.9 mg/dL (8.7-10.3); Carbon Dioxide 22.3 mmol/L (21.6-31.8); Chloride 108 mmol/L (96-109); Glucose 205 mg/dL (70-110); Potassium 3.6 mmol/L (3.5-5.5); Sodium 139 mmol/L (135-145)
[2023-10-01 11:14] VITALS: BMI 36.6
--- NOTE | 2023-10-01 12:18 | CDI ---
Documentation Clarification Form Date: 10/01/2023 12:13:31 PM From: Rae Skinner RN, CCDS Phone: [phone] Admit Date: 09/28/2023 08:43:00 PM Patient Name: Daphney Rico Visit Number: [id number] Discharge Date: ATTENTION: The Clinical Documentation Specialists (CDI) and [facility] Coding Staff appreciate your assistance in clarifying documentation. Please respond to the clarification below the line at the bottom and electronically sign. The CDI & [facility] Coding staff will review the response and follow-up if needed. Please note: Queries are made part of the Legal Health Record. If you have any questions, please contact the author of this message via ITS. Dr. Shabnam Hill debridement is documented in the procedure note and progress notes. Additional clarification regarding the procedure is requested. History/Risk Factors: lumbar stenosis and listhesis with lower extremity radiculopathy. S/P posterior lumbar minimally invasive decompression and fusion at L5-S1 on August 12, 2023. Presented with redness, swelling at incision site and fevers. Clinical Indicators: 09/27 Ortho: "this can be some local cellulitis around the wound site which can resolve with medical management. However if this is stalling out or if she is having any worsening, we will be planning to proceed with formal irrigation debridement of the area." 09/27 CT lumbar spine: Subcutaneous fluid collections in the surgical bed given clinical history of redness. Findings suspicious abscess/cellulitis. 09/28 Procedure note: "Open irrigation and debridement of lumbar spine wound, at the subcutaneous space without involving the deep tissue or deep fascia. I did some debridement of the tissue with a curette and the denuded tissue was removed. 9 L of irrigation fluid was run through the space with periodic debridement completed." Treatment: s/p irrigation and debridement of lumbar spine wound on 09/28; IV Cefepime 2gm Q8H 09/28-current; IV Vancomycin 1500mg on 09/27; IV Vancomycin 1500mg Q12H 09/27-current Please clarify the type of procedure performed: [ X ] Excisional debridement of subcutaneous space (the removal of necrotic, devitalized tissue or slough by means of cutting away of tissue) [ ] Non-excisional debridement of subcutaneous space (the removal of necrotic, devitalized tissue or slough by means of flushing, brushing, or washing. (Irrigation) [ ] Other; please specify [ ] Unable to determine I performed excisional debridement of necrotic denuded tissue at the area. I was able to curette and scraped out the denuded tissue for debridement and then performed copious irrigation. Five elements required for accurate and compliant documentation of a debridement: Technique used (e.g., excisional, excised, cutting, brushing, jet lavage etc.) Instrument(s) used (e.g., scalpel, curette, etc.) Nature of the tissue removed (e.g., necrotic, devitalized tissues, non-viable tissue, etc.) Appearance and size of the wound (e.g., down to fresh bleeding tissue, 7cm x 10cm, etc.) MTDD
[2023-10-01 12:24] LABS: Glucose,Whole Blood 162 mg/dL (70-110)
--- NOTE | 2023-10-01 13:01 | P.PN ---
Subjective Progress Note Date: 10/01/23 Principal diagnosis: Lumbar surgical site infection Patient is a 47-year-old female with a past medical history significant for diabetes mellitus hypertension hyperlipidemia coronary disease rheumatoid arthritis in this patient who did have minimally invasive decompres dalton and fusion L5-S1 done on August 12, 2023 presenting to the hospital with the pain and swelling redness to the lumbar incision and no fever diagnosed with the lumbar surgical site infection in this patient with status post surgical debridement completed 09/29/2023 operative report did not mention any clear evidence or abscess cavity no culture has been obtained On today's evaluation that is 10/01/2023,the patient denies any fever or any chills, patient is breathing comfortably on room air, the patient denies chest pain shortness of breath and no significant cough, patient denies abdominal pain , no nausea vomiting or diarrhea. Patient pain to the lower back and slightly decreased in intensity. Patient white count is 5.33, creatinine 0.6 Vanco trough is low cultures currently pending Objective - Vital Signs Vital signs: Vital Signs Temp 98.6 F 10/01/23 07:41 Pulse 64 10/01/23 07:41 Resp 16 10/01/23 07:41 BP 108/70 10/01/23 07:41 Pulse Ox 99 10/01/23 07:41 FiO2 Intake & Output 09/30/23 10/01/23 10/01/23 18:59 06:59 18:59 Intake Total 1320 240 120 Balance 1320 240 120 Weight 96.9 kg Intake: Oral 1320 240 120 Other: Voiding Method Toilet Toilet Toilet # Voids 2 1 - Exam GENERAL DESCRIPTION: Middle-aged female up in bed in no distress RESPIRATORY SYSTEM: Unlabored breathing , decreased breath sounds at bases HEART: S1 S2 regular rate and rhythm , ABDOMEN: Soft , no tenderness Lumbar surgical site is currently dressed in OR dressing EXTREMITIES: No edema feet - Labs CBC & Chem 7: 10/01/23 07:01 10/01/23 07:01 Labs: Abnormal Lab Results - Last 24 Hours (Table) 09/30/23 09/30/23 09/30/23 Range/Units 07:41 12:16 17:08 POC Glucose (mg/dL) 238 H 350 H (70-110) mg/dL Hemoglobin A1c 10.3 H (<=6.0) % 09/30/23 10/01/23 Range/Units 20:07 07:15 POC Glucose (mg/dL) 275 H 202 H (70-110) mg/dL Hemoglobin A1c (<=6.0) % Microbiology - Last 24 Hours (Table) 09/28/23 19:47 Blood Culture - Preliminary Blood 09/28/23 19:32 Blood Culture - Preliminary Blood 09/29/23 16:08 Gram Stain - Preliminary Back Wound Culture - Preliminary 09/29/23 16:10 Gram Stain - Preliminary Back Wound Culture - Preliminary Assessment and Plan (1) Fever Current Visit: Yes Status: Acute Code(s): R50.9 - FEVER, UNSPECIFIED SNOMED Code(s): 078174543 (2) Post op infection Current Visit: Yes Status: Acute Code(s): T81.40XA - INFECTION FOLLOWING A PROCEDURE, UNSPECIFIED, INIT SNOMED Code(s): 83221059 Plan: 1patient presented hospital with sepsis in this patient who did have a fever elevated white count meeting criteria for SIRS/sepsis source is likely lumbar cellulitis in this patient who recently did have L5S1 fusion decompression and likely from gram-positive skin sumaya failing outpatient oral Keflex therapy 2-patient is status post surgical drainage and deep culture however operative report did not mention any deep pocket of abscess 3-patient to continue with the vancomycin, dosing need to be adjusted up to keep the trough around 15 and cefepime while waiting for the culture to finalize to determine discharge antibiotics Dictation was produced using [employer] dictation software. please excuse any grammatical, word or spelling errors. Time with Patient: Less than 30
[2023-10-01] MEDS: VANCOMYCIN 1,500 MG in SODIUM CHLORIDE 0.9% 500 ML 500 ML IVPB SCH (16:19)
--- NOTE | 2023-10-01 17:04 | P.PN ---
Subjective Progress Note Date: 10/01/23 Patient was seen and examined. Walking the hallway. No complaints. Discussed with Orthopedic Sthanh OSMAN, awaiting final culture results for discharge. General: [nontoxic], [no distress], [appears at stated age] Derm: [warm], [dry], back dressing not observed Head: [atraumatic], [normocephalic], [symmetric] Eyes: [EOMI], [no lid lag], [anicteric sclera] Mouth: [no lip lesion], [mucus membranes moist] Cardiovascular: [Good distal perfusion in all 4 extremities] Lungs: [Breathing comfortably] , [no accessory muscle use] Ext: [no gross muscle atrophy], [no edema], [no contractures] Neuro: [no focal neuro deficits] Psych: [Alert], [oriented], [appropriate affect] Surgical site infection status post irrigation and debridement: Currently on IV vancomycin, pharmacy to dose, monitor for renal toxicity, continue IV cefepime 2 g every 8 hours. Wound cultures negative so far. ID on board. Sepsis secondary to above Recent minimally invasive decompression and fusion of L5-S1: Pain control with Tylenol 650 mg PO Q6H PRN, Flexeril 10 mg PO TID as needed, duloxetine 20 mg daily, Motrin 400 mg PO Q6H as needed, [place] 5-7.5 mg PO Q4H as needed. Toradol 15 mg IV Q6H as needed. Stop Morphine and Dilaudid PRN. Monitor for sedation. Hypertension: Losartan 50 mg PO BID. Metoprolol 50 mg PO BID. Diabetes mellitus: Levemir 15 units QHS. ISS. Accuchecks ACHS. Hypoglycemic precautions. Objective - Vital Signs Vital signs: Vital Signs Temp 98.5 F 10/01/23 13:21 Pulse 52 L 10/01/23 13:21 Resp 16 10/01/23 13:21 BP 132/86 10/01/23 13:21 Pulse Ox 99 10/01/23 13:21 FiO2 Intake & Output 09/30/23 10/01/23 10/01/23 18:59 06:59 18:59 Intake Total 1320 240 120 Balance 1320 240 120 Weight 96.9 kg 96.9 kg Intake: Oral 1320 240 120 Other: Voiding Method Toilet Toilet Toilet # Voids 2 1 - Labs CBC & Chem 7: 10/01/23 07:01 10/01/23 07:01 Labs: Abnormal Lab Results - Last 24 Hours (Table) 09/30/23 09/30/23 10/01/23 Range/Units 17:08 20:07 07:01 RBC 3.68 L (4.10-5.20) X 10*6/uL Hgb 10.8 L (12.0-15.0) g/dL Hct 33.0 L (37.2-46.3) % Monocytes # 0.18 L (0.20-1.00) X 10*3/uL Eosinophils # 0.01 L (0.04-0.35) X 10*3/uL BUN/Creatinine Ratio (12.00-20.00) Ratio Glucose (70-110) mg/dL POC Glucose (mg/dL) 350 H 275 H (70-110) mg/dL Calcium (8.7-10.3) mg/dL 10/01/23 10/01/23 10/01/23 Range/Units 07:01 07:15 12:23 RBC (4.10-5.20) X 10*6/uL Hgb (12.0-15.0) g/dL Hct (37.2-46.3) % Monocytes # (0.20-1.00) X 10*3/uL Eosinophils # (0.04-0.35) X 10*3/uL BUN/Creatinine Ratio 35.33 H (12.00-20.00) Ratio Glucose 205 H (70-110) mg/dL POC Glucose (mg/dL) 202 H 162 H (70-110) mg/dL Calcium 7.9 L (8.7-10.3) mg/dL Microbiology - Last 24 Hours (Table) 09/28/23 19:47 Blood Culture - Preliminary Blood 09/28/23 19:32 Blood Culture - Preliminary Blood 09/29/23 16:08 Gram Stain - Preliminary Back Wound Culture - Preliminary 09/29/23 16:10 Gram Stain - Preliminary Back Wound Culture - Preliminary
[2023-10-01 17:12] LABS: Glucose,Whole Blood 152 mg/dL (70-110)
[2023-10-01 20:18] LABS: Glucose,Whole Blood 196 mg/dL (70-110)
[2023-10-02 02:17] VITALS: TEMP 98
[2023-10-02 06:04] LABS: Glucose,Whole Blood 193 mg/dL (70-110)
[2023-10-02 07:45] VITALS: BP 134/86; PULSE 57; RESP 15
[2023-10-02 08:48] LABS: African American GFR (CKD) >90 (>60 ml/min/1.73 sqM); Non-African American GFR(CKD) >90 (>60 ml/min/1.73 sqM)
--- NOTE | 2023-10-02 08:57 | P.DS ---
Providers Date of admission: 09/28/23 20:43 Expected date of discharge: 10/02/23 Attending physician: Shabnam Mark Consults: 09/28/23 19:26 Consult Physician Urgent Consulting Provider: Ab Weiner Consult Reason/Comments: medical consult Do you want consulting provider notified?: Yes 09/28/23 21:31 Consult Physician Urgent Consulting Provider: Diogo Rowan Consult Reason/Comments: post op wound erythema, 6 wks s/p lumbar fusion Do you want consulting provider notified?: Yes Primary care physician: Jose Angel Aguillon MD - Discharge Diagnosis(es) (1) Low back pain Current Visit: Yes Status: Acute (2) Hypertension Current Visit: Yes Status: Acute (3) Diabetes Current Visit: Yes Status: Acute (4) Post op infection Current Visit: Yes Status: Acute Hospital Course: This is a pleasant 47-year-old female who presented with lumbar spine wound infection status post 6 weeks L5-S1 decompression and fusion. She was admitted for further treatment evaluation. She underwent open irrigation and debridement of the lumbar spine wound at the subcutaneous space without involving deep tissue or deep fascia The patient tolerated the procedure well and did well postoperatively. She is not having any erythema around her surgical site over the left lumbar spine. She denies fever, chills, nausea, or vomiting. She is continue to improve during her admission. She does have some pain with weakness in her left lower extremity which was present prior to surgical intervention. It has significantly improved postoperatively in regards to her pain. She feels she is ready for discharge home today if cleared by infectious disease. Condition on day of discharge stable. Patient will be discharged home. Arley remain intact over the surgical incision site over the left lumbar spine. Dressing was reapplied yesterday. Dressing remains clean, dry, and intact. She may shower with this dressing intact. Patient may remove dressing in 3 days and shower without a dressing at that time. Patient should avoid excessive bending, lifting, and twisting; no lifting greater than 10 pounds. Patient was previously prescribed narcotic pain medication in the outpatient setting. She states she has enough of this medication. Patient's other medical diagnoses include type 2 diabetes, history of hypertension, and hyponatremia. Patient must be cleared by medicine and infectious disease prior to discharge home. Infectious disease will manage the patient's antibiotic regimen at the time of discharge. Physical Exam on day of discharge: Status post surgical day number 3 Patient is awake, alert, and oriented 3 Vital signs stable Good chest excursion with deep inspiration and expiration Dorsiflexion, plantarflexion, and extensor hallucis longus positive sustained bilaterally No signs or symptoms of DVT; no calf pain; negative Homans' sign Dressing remains intact left lumbar surgical incision site Dressing site is clean, dry, and intact Reading remain intact No current drainage from surgical/I&D site No pain with palpation around the surgical site over the left lumbar paraspinal No erythema or induration around the surgical site over the left lumbar paraspinal Procedures: Status post open irrigation and debridement of the lumbar spine wound at the subcutaneous space without involving deep tissue or deep fascia Patient Condition at Discharge: Stable Plan - Discharge Summary Discharge Rx Participant: No New Discharge Prescriptions: No Action Losartan [Cozaar] 50 mg PO BID DULoxetine HCL [Cymbalta] 20 mg PO DAILY Pioglitazone [Actos] 30 mg PO DAILY Nitroglycerin Sl Tabs [Nitrostat] 0.4 mg SL Q5M PRN PRN Reason: Chest Pain Insulin Glargine,Hum.rec.anlog [Lantus Solostar Pen] 12 units SQ DAILY@1430 Cyclobenzaprine [Flexeril] 10 mg PO TID PRN #60 tab PRN Reason: Muscle Spasm Cephalexin [Keflex] 500 mg PO Q6H Atorvastatin [Lipitor] 80 mg PO HS #90 tab Liraglutide [Victoza 3-Louis] 1.8 mg SQ DAILY@1430 metFORMIN HCL ER [Glucophage XR] 1,000 mg PO W/SUPPER Aspirin [Adult Low Dose Aspirin EC] 81 mg PO DAILY hydroCHLOROthiazide [Hydrodiuril] 50 mg PO DAILY Fish Oil/Dha/Epa [Fish Oil 1,200 mg Fish Oil] 1 cap PO DAILY Metoprolol Tartrate [Lopressor] 50 mg PO BID HYDROcodone/APAP 7.5-325MG [[place]con[place] 7.5-325] 1 tab PO Q4HR PRN PRN Reason: Pain Discharge Medication List DULoxetine HCL [Cymbalta] 20 mg PO DAILY 10/28/21 [History] Losartan [Cozaar] 50 mg PO BID 10/28/21 [History] Atorvastatin [Lipitor] 80 mg PO HS #90 tab 10/31/21 [Rx] Liraglutide [Victoza 3-Louis] 1.8 mg SQ DAILY@1430 12/27/21 [History] Insulin Glargine,Hum.rec.anlog [Lantus Solostar Pen] 12 units SQ DAILY@1430 05/30/23 [History] Nitroglycerin Sl Tabs [Nitrostat] 0.4 mg SL Q5M PRN 05/30/23 [History] Pioglitazone [Actos] 30 mg PO DAILY 05/30/23 [History] metFORMIN HCL ER [Glucophage XR] 1,000 mg PO W/SUPPER 05/30/23 [History] Aspirin [Adult Low Dose Aspirin EC] 81 mg PO DAILY 08/07/23 [History] Cyclobenzaprine [Flexeril] 10 mg PO TID PRN #60 tab 08/14/23 [Rx] Cephalexin [Keflex] 500 mg PO Q6H 09/28/23 [History] Fish Oil/Dha/Epa [Fish Oil 1,200 mg Fish Oil] 1 cap PO DAILY 09/28/23 [History] HYDROcodone/APAP 7.5-325MG [[place] 7.5-325] 1 tab PO Q4HR PRN 09/28/23 [History] Metoprolol Tartrate [Lopressor] 50 mg PO BID 09/28/23 [History] hydroCHLOROthiazide [Hydrodiuril] 50 mg PO DAILY 09/28/23 [History] Follow up Appointment(s)/Referral(s): Jose Angel Aguillon MD [Primary Care Provider] - 1-2 days Wilbert Hines PAC [PHYSICIAN WEBMASTER] - 1 Week (Patient may follow-up with Wilbert Hines PA-C or Dr. González Mark at [facility] in 1 week following discharge. ) Activity/Diet/Wound Care/Special Instructions: 1. Keep surgical incision site and dressing over the left lumbar spine clean and dry; dressing may be removed in 3 days; may shower with dressing intact 2. Keep arley intact over the left lumbar surgical incision site until follow-up appointment in the office 3. Continue with daily dressing changes over the left lumbar surgical incision site as needed 4. Recommend compression and ice over the left lumbar surgical incision site 5. Patient may ambulate and participate in regular activities of daily living to her tolerance while avoiding excessive activities 6. Avoid excessive bending, twisting, and lifting 7. No lifting greater than 10 pounds 8. Avoid standing water; do not soak in tub; do not swim in the [place]; do not swim in swimming pool Discharge Disposition: HOME SELF-CARE
--- NOTE | 2023-10-02 12:10 | P.PN ---
Subjective Progress Note Date: 10/02/23 Patient was seen and examined. Walking the hallway. No complaints. Discussed with Dr. Rowan, cleared for discharge, cultures are negative, continue prescribed Keflex at home. General: [nontoxic], [no distress], [appears at stated age] Derm: [warm], [dry], back dressing not observed Head: [atraumatic], [normocephalic], [symmetric] Eyes: [EOMI], [no lid lag], [anicteric sclera] Mouth: [no lip lesion], [mucus membranes moist] Cardiovascular: [Good distal perfusion in all 4 extremities] Lungs: [Breathing comfortably] , [no accessory muscle use] Ext: [no gross muscle atrophy], [no edema], [no contractures] Neuro: [no focal neuro deficits] Psych: [Alert], [oriented], [appropriate affect] Surgical site infection status post irrigation and debridement: Discussed with Dr. Rowan, cultures are negative, continue prescribed Keflex at home. Wound cultures negative so far. ID on board. Sepsis secondary to above Recent minimally invasive decompression and fusion of L5-S1: Pain control with Tylenol 650 mg PO Q6H PRN, Flexeril 10 mg PO TID as needed, duloxetine 20 mg daily, Motrin 400 mg PO Q6H as needed, Keasbey 5-7.5 mg PO Q4H as needed. Toradol 15 mg IV Q6H as needed. Stop Morphine and Dilaudid PRN. Monitor for sedation. Hypertension: Losartan 50 mg PO BID. Metoprolol 50 mg PO BID. Diabetes mellitus: Levemir 15 units QHS. ISS. Accuchecks ACHS. Hypoglycemic precautions. Medically stable for discharge. Objective - Vital Signs Vital signs: Vital Signs Temp 98.0 F 10/02/23 07:16 Pulse 57 L 10/02/23 07:16 Resp 15 10/02/23 07:16 BP 134/86 10/02/23 07:16 Pulse Ox 99 10/02/23 07:16 FiO2 Intake & Output 10/01/23 10/02/23 10/02/23 18:59 06:59 18:59 Intake Total 1740 240 Balance 1740 240 Weight 96.9 kg 98.5 kg Intake: Oral 1740 240 Other: Voiding Method Toilet Toilet Toilet # Voids 3 - Labs CBC & Chem 7: 10/01/23 07:01 10/02/23 06:28 Labs: Abnormal Lab Results - Last 24 Hours (Table) 10/01/23 10/01/23 10/01/23 Range/Units 12:23 17:07 20:16 POC Glucose (mg/dL) 162 H 152 H 196 H (70-110) mg/dL 10/02/23 Range/Units 06:03 POC Glucose (mg/dL) 193 H (70-110) mg/dL Microbiology - Last 24 Hours (Table) 09/28/23 19:47 Blood Culture - Preliminary Blood 09/28/23 19:32 Blood Culture - Preliminary Blood 09/29/23 16:08 Anaerobic Culture - Preliminary Back 09/29/23 16:10 Anaerobic Culture - Preliminary Back 09/29/23 16:08 Gram Stain - Preliminary Back Wound Culture - Preliminary 09/29/23 16:10 Gram Stain - Preliminary Back Wound Culture - Preliminary
--- NOTE | 2023-10-02 12:13 | P.PN ---
Subjective Progress Note Date: 10/02/23 Principal diagnosis: Lumbar surgical site infection Patient is a 47-year-old female with a past medical history significant for diabetes mellitus hypertension hyperlipidemia coronary disease rheumatoid arthritis in this patient who did have minimally invasive decompres dalton and fusion L5-S1 done on August 12, 2023 presenting to the hospital with the pain and swelling redness to the lumbar incision and no fever diagnosed with the lumbar surgical site infection in this patient with status post surgical debridement completed 09/29/2023 operative report did not mention any clear evidence or abscess cavity no culture has been obtained On today's evaluation that is 10/02/2023,the patient remains to be afebrile, patient is on room air not requiring supplemental oxygen and denies any shortness of breath no chest pain or cough.Patient denies having any nausea or vomiting, no abdominal pain and no diarrhea mention pain to the lower back has decreased in intensity no drainage feeling better wants to go home. Patient did have a creatinine 0.5 to culture negative so far Objective - Vital Signs Vital signs: Vital Signs Temp 98.0 F 10/02/23 07:16 Pulse 57 L 10/02/23 07:16 Resp 15 10/02/23 07:16 BP 134/86 10/02/23 07:16 Pulse Ox 99 10/02/23 07:16 FiO2 Intake & Output 10/01/23 10/02/23 10/02/23 18:59 06:59 18:59 Intake Total 1740 240 Balance 1740 240 Weight 96.9 kg 98.5 kg Intake: Oral 1740 240 Other: Voiding Method Toilet Toilet # Voids 3 - Exam GENERAL DESCRIPTION: Middle-aged female up in bed in no distress RESPIRATORY SYSTEM: Unlabored breathing , decreased breath sounds at bases HEART: S1 S2 regular rate and rhythm , ABDOMEN: Soft , no tenderness Lumbar surgical site chinyere intact no redness or drainage EXTREMITIES: No edema feet - Labs CBC & Chem 7: 10/01/23 07:01 10/02/23 06:28 Labs: Abnormal Lab Results - Last 24 Hours (Table) 10/01/23 10/01/23 10/01/23 Range/Units 07:01 07:01 12:23 RBC 3.68 L (4.10-5.20) X 10*6/uL Hgb 10.8 L (12.0-15.0) g/dL Hct 33.0 L (37.2-46.3) % Monocytes # 0.18 L (0.20-1.00) X 10*3/uL Eosinophils # 0.01 L (0.04-0.35) X 10*3/uL BUN/Creatinine Ratio 35.33 H (12.00-20.00) Ratio Glucose 205 H (70-110) mg/dL POC Glucose (mg/dL) 162 H (70-110) mg/dL Calcium 7.9 L (8.7-10.3) mg/dL 10/01/23 10/01/23 10/02/23 Range/Units 17:07 20:16 06:03 RBC (4.10-5.20) X 10*6/uL Hgb (12.0-15.0) g/dL Hct (37.2-46.3) % Monocytes # (0.20-1.00) X 10*3/uL Eosinophils # (0.04-0.35) X 10*3/uL BUN/Creatinine Ratio (12.00-20.00) Ratio Glucose (70-110) mg/dL POC Glucose (mg/dL) 152 H 196 H 193 H (70-110) mg/dL Calcium (8.7-10.3) mg/dL Microbiology - Last 24 Hours (Table) 09/28/23 19:47 Blood Culture - Preliminary Blood 09/28/23 19:32 Blood Culture - Preliminary Blood 09/29/23 16:08 Anaerobic Culture - Preliminary Back 09/29/23 16:10 Anaerobic Culture - Preliminary Back 09/29/23 16:08 Gram Stain - Preliminary Back Wound Culture - Preliminary 09/29/23 16:10 Gram Stain - Preliminary Back Wound Culture - Preliminary Assessment and Plan (1) Fever Current Visit: Yes Status: Acute Code(s): R50.9 - FEVER, UNSPECIFIED SNOMED Code(s): 556672623 (2) Post op infection Current Visit: Yes Status: Acute Code(s): T81.40XA - INFECTION FOLLOWING A PROCEDURE, UNSPECIFIED, INIT SNOMED Code(s): 73203882 Plan: 1patient presented hospital with sepsis in this patient who did have a fever elevated white count meeting criteria for SIRS/sepsis source is likely lumbar cellulitis in this patient who recently did have L5S1 fusion decompression and likely from gram-positive skin sumaya failing outpatient oral Keflex therapy 2-patient is status post surgical drainage and deep culture however operative report did not mention any deep pocket of abscess, culture has been negative so far 3-patient has shown clinical improvement wants to go home Ortho has cleared the patient for discharge patient already has oral Keflex at home she will continue with it and follow-up in the office in 1 week Dictation was produced using [employer] dictation software. please excuse any grammatical, word or spelling errors. Time with Patient: Less than 30
[2023-10-02 12:22] LABS: Glucose,Whole Blood 234 mg/dL (70-110)
[2023-10-02] MEDS: HYDROcodone/APAP 5-325MG 1 EACH TAB PO PRN (14:05)
[2023-10-03] MEDS ORDERED: VANCOMYCIN TROUGH DUE 1 EACH MISC MISCELLANE ONE (07:00)
== END 2023-10-02 14:10 | disposition home or self-care (01) | DRG 856 ==
LOC: EC 15:47 → 4SSUR 20:43 → 3SCARD 09-29 01:41 → 5NMEDONC 09-29 23:06
PROVIDERS: ADMIT Orthopaedic Surgery Orthopaedic Surgery of the Spine; ATTEND Orthopaedic Surgery Orthopaedic Surgery of the Spine
PROC: 3E1R38Z Irrigation of Spinal Canal using Irrigating Substance, Percutaneous Approach (ICD-10-PCS; principal; 2023-09-29 15:00)
PROC: 0JB70ZZ Excision of Back Subcutaneous Tissue and Fascia, Open Approach (ICD-10-PCS; principal; 2023-09-29 15:00)
DX: T81.41XA Infection following a procedure, superficial incisional surgical site, initial encounter (principal); A41.9 Sepsis, unspecified organism; E87.1 Hypo-osmolality and hyponatremia; L03.818 Cellulitis of other sites; T81.44XA Sepsis following a procedure, initial encounter; N20.0 Calculus of kidney; E11.65 Type 2 diabetes mellitus with hyperglycemia; M54.16 Radiculopathy, lumbar region; I10 Essential (primary) hypertension; E78.5 Hyperlipidemia, unspecified; I25.10 Atherosclerotic heart disease of native coronary artery without angina pectoris; M06.9 Rheumatoid arthritis, unspecified; L40.50 Arthropathic psoriasis, unspecified; Z79.4 Long term (current) use of insulin; Z71.3 Dietary counseling and surveillance; Z98.1 Arthrodesis status; Z95.5 Presence of coronary angioplasty implant and graft; Z79.899 Other long term (current) drug therapy; Z79.84 Long term (current) use of oral hypoglycemic drugs; Z79.82 Long term (current) use of aspirin
CPT/HCPCS: 36415; 72132; 80048; 80053; 80202; 81003; 81025; 82565; 83036; 83605; 84703; 85025; 85652; 86140; 87040; 87070; 87075; 87205; 96361; 96365; 96366; 96367; 96368; 96375; 99285